=== PATIENT | male | born 1960 | race Caucasian/White ===

== ENCOUNTER 2022-09-21 19:44 | Inpatient (IN) | payer OTHER, SELFPAY ==
--- NOTE | ~2022-09-21 | CT_ITS ---
EXAMINATION: CT ABDOMEN AND PELVIS WITHOUT CONTRAST CLINICAL INFORMATION: Right-sided flank pain COMPARISON: None TECHNIQUE: Multidetector volumetric imaging was performed from the superior aspect of the liver through the pubic symphysis. Sagittal and coronal reformatted images were obtained on the technologist's workstation. This CT examination was performed using dose optimization techniques as appropriate, variously including the following: *Automated exposure control *Adjustment of mA and/or kV according to patient size (this includes techniques or standardized protocols for targeted exams where dose is matched to indication/reason for exam; i.e. extremities or head) *Use of iterative reconstruction technique DLP: 682 mGy-cm FINDINGS: LUNG BASES: The visualized lung bases are unremarkable. LIVER, GALLBLADDER, AND BILIARY TREE: The liver is normal in size, shape, and attenuation. No focal hepatic lesion or biliary ductal dilatation is present. The gallbladder is unremarkable with no evidence of radiopaque gallstones, gallbladder wall thickening, or obvious pericholecystic inflammatory changes. PANCREAS: Unremarkable. SPLEEN: Unremarkable. ADRENAL GLANDS: Unremarkable. KIDNEYS AND URETERS: The kidneys are normal in size, shape, and attenuation. No hydronephrosis, hydroureter, or calculi seen. No perinephric stranding. BLADDER: Unremarkable. GASTROINTESTINAL TRACT: The appendix is enlarged 1.5 cm in length and multiple appendicoliths are present within the appendiceal lumen which does not contain air. Some subtle inflammatory changes are seen around the appendix. No extraluminal air or periappendiceal fluid collections are seen. The small and large bowel are unremarkable. ABDOMINAL WALL: No significant hernia is appreciated. LYMPH NODES: No retroperitoneal lymphadenopathy VASCULAR: Unremarkable. PELVIC VISCERA: The prostate and seminal vesicles are unremarkable. OSSEOUS STRUCTURES: Degenerative changes are present throughout the spine most marked at T9-T10. There is a large Schmorl's node in the superior endplate of L4. CT/CT abdomen pelvis wo IV con IMPRESSION: Acute uncomplicated appendicitis. Fleischner guidelines were followed. This critical result was discussed with Dr. Amanda Mckinney at 8:50 PM on the evening of the exam and it was ascertained that the content and urgency of the report was understood at the time of direct communication.
[2022-09-21 19:48] VITALS: BP 139/86; PULSE 105; O2SAT 100
[2022-09-21 19:49] VITALS: BMI 30.4
[2022-09-21 19:51] VITALS: BP 155/92; PULSE 96; RESP 20; TEMP 37; O2SAT 99
[2022-09-21 20:15] LABS: Hematocrit 35.5 % (42.0-52.0); Hemoglobin 12.6 g/dl (14.0-18.0); Mean Corpuscular HGB Conc 35.5 g/dl (31.0-36.0); Mean Corpuscular Hemoglobin 31.2 pg (27.0-33.0); Mean Corpuscular Volume 87.9 fL (80.0-98.0); Mean Platelet Volume 8.5 fL (9.4-12.4); Platelet Count 298 X10*3/uL (160-400); Red Blood Count 4.04 X10*6/uL (4.60-5.80); Red Cell Distribution Width 12.7 % (11.0-16.0); WBC ABN SCTR FOR CBC 1
[2022-09-21 20:24] LABS: Lymphocytes Percent Manual 5 % (20-40); Monocytes Percent Manual 6 % (2-11); Neutrophils Percent Manual 89 % (45-73)
[2022-09-21 20:25] LABS: Platelet Estimate NORMAL (NORMAL); Platelet Morphology Comment NORMAL; RBC Morphology NORMAL
[2022-09-21 20:26] LABS: Lymphocytes Absolute Manual 0.7 X10*3/uL (1.2-4.9); Monocytes Absolute Manual 0.8 X10*3/uL (0.1-1.2)
[2022-09-21 20:33] LABS: Alanine Aminotransferase 11 U/L (0-40); Albumin Level 4.7 g/dL (3.5-5.0); Alkaline Phosphatase 110 U/L (39-117); Anion Gap 19 (12-20); Aspartate Amino Transferase 26 U/L (5-37); Bilirubin Direct 0.5 mg/dL (0.0-0.5); Bilirubin Total 1.7 mg/dL (0.0-1.0); Blood Urea Nitrogen 11 mg/dL (9-16); Calcium 10.3 mg/dL (8.4-10.2); Carbon Dioxide 20 mmol/L (22-29); Chloride 95 mmol/L (96-108); Creatinine Clr Calc Pharmacy 76.5; Estimated Glomerular Filt Rate > 60; Glucose Random 117 mg/dL (60-115); Lipase 14 U/L (8-78); Potassium 4.7 mmol/L (3.3-5.1); Sodium 129 mmol/L (135-145); Total Protein 8.5 g/dL (6.5-8.0)
--- NOTE | 2022-09-21 21:07 | ED_ITS ---
HPI - Abdominal Pain General Chief Complaint: Back Pain/Injury Stated Complaint: flank pain with vomiting Time Seen by Provider: 09/21/22 20:52 Source: patient Mode of arrival: EMS Limitations: no limitations History of Present Illness HPI narrative: Patient comes to the emergency room complaining of right lower quadrant discomfort that started about a week ago. However, over last 3 days, the patient has been constant, nonradiating, sharp and gradually getting worse over right lower quadrant. Patient denies any injury or trauma. No fever, complaining of nausea and vomiting, no diarrhea. Denies any URI symptoms. Related Data Home Medications Medication Instructions Recorded Confirmed aspirin 325 mg tablet,delayed 325 mg PO DAILY 09/21/22 09/21/22 release carvedilol 3.125 mg tablet 1 tab PO BID 09/21/22 09/21/22 folic acid 800 mcg tablet 0.8 mg PO DAILY 09/21/22 09/21/22 furosemide 20 mg tablet 1 tab PO BIDWM 09/21/22 09/21/22 [id number]-ydlzgkdx-ckledw tablet 1 tab PO DAILY 09/21/22 09/21/22 quetiapine 100 mg tablet 1 tab PO BEDTIME 09/21/22 09/21/22 spironolactone 25 mg tablet 1 tab PO DAILY 09/21/22 09/21/22 thiamine HCl (vitamin B1) 100 mg 100 mg PO DAILY 09/21/22 09/21/22 tablet Allergies Allergy/AdvReac Type Severity Reaction Status Date / Time No Known Allergies Allergy Unverified 05/16/20 14:49 [No Known Allergies*] Review of Systems Review of Systems Constitutional : No Weight loss, No Fever, No Chills, No Night Sweats, No Fatigue, No Malaise ENT/Mouth : No Hearing loss, No Ear Pain, No Nasal Congestion, No Sinus Pain, No Hoarseness, No sore throat, No Rhinorrhea, No Swallowing Difficulty Eyes: No Eye Pain, No Swelling, No Redness, No Foreign Body, No Discharge, No Vision Changes Cardiovascular : No Chest Pain, No SOB, No Dyspnea on Exertion, No Orthopnea, No Edema, No Palpitations Respiratory : No Cough, No Sputum, No Wheezing, No Smoke Exposure, No Dyspnea Gastrointestinal : Complaining of nausea and vomiting, no diarrhea constipation, complaining of constant sharp nonradiating right lower quadrant pain, significant pain, worse with movement or laughing Genitourinary : no irregular bleeding, No Dysuria, No Urinary Frequency, No Hematuria, No Urinary Incontinence, No Urgency, No Flank Pain, No Urinary Flow Changes, No Hesitancy Musculoskeletal : No joint pain, No Myalgias, No Joint Swelling Skin : No Skin Lesions, No rash Neuro : No Weakness, No Numbness, No Paresthesias, No Loss of Consciousness, No Dizziness, No Headache Psych : No Anxiety/Panic, No Depression, No SI/HI/AH/VH, No Social Issues, Heme/Lymph: No Bruising, No Bleeding,No Lymphadenopathy Endocrine : No Polyuria, No Polydipsia, No Temperature Intolerance [facility] Social History Social History Patient Tobacco Use Status: Never used Tobacco Smoked in Last 30 Days: No Use of substances other than those prescribed or required for medical reasons: No Advance Directives: No Advance Directives Information Provided: No Nutrition Risks: Acute nausea or vomiting x1 week and Difficulty chewing Physical Exam ED Vital Signs: Vital Signs - 24 hr 09/21/22 19:49 09/21/22 19:51 Temperature 98.6 F Pulse Rate 96 Respiratory Rate 20 Blood Pressure 155/92 H Pulse Oximetry 99 Oxygen Delivery Method Room Air Room Air BMI result Body Mass Index 30.4 Const Other: Appearance: Alert. Oriented X3. No acute distress. Eyes: Pupils equal, round and reactive to light. ENT: Pharynx normal. Neck: Normal inspection. Neck supple. No lymph nodes noted. No crepitus CVS: Normal heart rate and rhythm. Pulses normal. Normal S1 and S2 Respiratory: No respiratory distress. Breath sounds normal. No Wheezing. No rales Abdomen: Soft, tender to palpation over the right lower quadrant, no guarding, positive rebound, chronic reducible umbilical hernia present Skin: Skin warm and dry. Normal skin color. Normal skin turgor. Extremities: No lower extremity edema. No Lacerations. No Rash Neuro: Oriented X 3. No motor deficit. No sensory deficit. Moving all ext remities. No slurred speech. CN 2 through 12 grossly intact Psych: calm, cooperative, normal affect Course Course Course Narrative: -patient's white blood cell count 14 --CT scan shows appendicitis -I discussed the patient with Dr. Lewis, pt being admitted for possible appendectomy -patient given IV fluids, Zofran and Zosyn -NPO after midnight Medical Decision Making Medical Decision Making [facility] Narrative: -patient has appendicitis, patient will likely need surgery tomorrow Differential Diagnosis Differential Diagnoses: The differential diagnosis associated with the presentation includes (Appendicitis, ureterolithiasis) Admission/Observation Consideration of admission/observation: Escalation of care including admission/observation considered (Patient may need surgery tomorrow) Consult Healthcare Provider Management of the patient was discussed with: Scenario Writer (Dr. york from surgery ) Lab Data MDM Lab Attestation statement: I reviewed the patient's lab results. 09/21/22 19:54 09/21/22 19:54 Labs: Lab Results 09/21/22 09/21/22 Range/Units 19:54 19:54 WBC 14.0 H (4.8-10.8) X10*3/uL RBC 4.04 L (4.60-5.80) X10*6/uL Hgb 12.6 L (14.0-18.0) g/dl Hct 35.5 L (42.0-52.0) % MCV 87.9 (80.0-98.0) fL MCH 31.2 (27.0-33.0) pg MCHC 35.5 (31.0-36.0) g/dl RDW 12.7 (11.0-16.0) % Plt Count 298 (160-400) X10*3/uL MPV 8.5 L (9.4-12.4) fL Immature Gran % (Auto) Cancelled Neut % (Auto) Cancelled Lymph % (Auto) Cancelled Bond % (Auto) Cancelled Eos % (Auto) Cancelled Baso % (Auto) Cancelled Lymph # (Auto) Cancelled Bond # (Auto) Cancelled Eos # (Auto) Cancelled Baso # (Auto) Cancelled Abs Immat Gran (auto) Cancelled Absolute Neuts (auto) Cancelled Absolute Nucleated RBC 0.000 (0.0-0.012) X10*3/uL Nucleated RBC % (auto) 0.0 (0.0-0.2) /100WBC Neutrophils % (Manual) 89 H (45-73) % Lymphocytes % (Manual) 5 L (20-40) % Monocytes % (Manual) 6 (2-11) % Abs Neuts (Manual) Not Reportable Lymphocytes # (Manual) 0.7 L (1.2-4.9) X10*3/uL Monocytes # (Manual) 0.8 (0.1-1.2) X10*3/uL Platelet Estimate NORMAL (NORMAL) Plt Morphology Comment NORMAL RBC Morphology NORMAL Sodium 129 L (135-145) mmol/L Potassium 4.7 (3.3-5.1) mmol/L Chloride 95 L (96-108) mmol/L Carbon Dioxide 20 L (22-29) mmol/L Anion Gap 19 (12-20) BUN 11 (9-16) mg/dL Creatinine 1.08 (0.5-1.4) mg/dL Estim Creat Clear Calc 76.5 Estimated GFR > 60 Random Glucose 117 H (60-115) mg/dL Calcium 10.3 H (8.4-10.2) mg/dL Total Bilirubin 1.7 H (0.0-1.0) mg/dL Direct Bilirubin 0.5 (0.0-0.5) mg/dL AST 26 (5-37) U/L ALT 11 (0-40) U/L Alkaline Phosphatase 110 (39-117) U/L Total Protein 8.5 H (6.5-8.0) g/dL Albumin 4.7 (3.5-5.0) g/dL Lipase 14 (8-78) U/L Independent Interpretation I performed an independent interpretation of an: CT Scan (My CT scan interpretation: Appendicolith present, likely appendicitis) Radiology Impression Discussion of test interpretation with radiology: I have reviewed the radiologist's reading. Radiologist Impression: FINDINGS: LUNG BASES: The visualized lung bases are unremarkable.? LIVER, GALLBLADDER, AND BILIARY TREE: The liver is normal in size, shape, and attenuation. No focal hepatic lesion or biliary ductal dilatation is present. The gallbladder is unremarkable with no evidence of radiopaque gallstones, gallbladder wall thickening, or obvious pericholecystic inflammatory changes.? PANCREAS: Unremarkable.? SPLEEN: Unremarkable.? ADRENAL GLANDS: Unremarkable.? KIDNEYS AND URETERS: The kidneys are normal in size, shape, and attenuation. No hydronephrosis, hydroureter, or calculi seen. No perinephric stranding. ? BLADDER: Unremarkable.? GASTROINTESTINAL TRACT: The appendix is enlarged 1.5 cm in length and multiple appendicoliths are present within the appendiceal lumen which does not contain air. Some subtle inflammatory changes are seen around the appendix. No extraluminal air or periappendiceal fluid collections are seen. The small and large bowel are unremarkable. ? ABDOMINAL WALL: No significant hernia is appreciated.? LYMPH NODES: No retroperitoneal lymphadenopathy VASCULAR: Unremarkable. PELVIC VISCERA: The prostate and seminal vesicles are unremarkable.? OSSEOUS STRUCTURES: Degenerative changes are present throughout the spine most marked at T9-T10. There is a large Schmorl's node in the superior endplate of L4.? CT/CT abdomen pelvis wo IV con IMPRESSION: Acute uncomplicated appendicitis. ? Fleischner guidelines were followed. Medications Administered Discontinued Medications Generic Name Dose Route Start Last Admin Trade Name Freq PRN Reason Stop Dose Admin Piperacillin Sod/Tazobactam 50 mls @ 100 mls/hr 09/21/22 20:59 09/21/22 22:24 Sod 3.375 gm/ Sodium Chloride IV 09/21/22 21:28 Infused ONCE ONE Infusion Sodium Chloride 1,000 mls @ 999 mls/hr 09/21/22 20:59 09/21/22 21:51 Ns IVCONT 09/21/22 21:59 999 mls/hr .Q1H1M ONE Administration Morphine Sulfate 4 mg 09/21/22 20:59 09/21/22 21:50 Morphine Sulfate 4 Mg/Ml Cartridge IVPUSH 09/21/22 21:00 4 mg ONCE ONE Administration Protocol Ondansetron HCl 4 mg 09/21/22 20:59 09/21/22 21:47 Ondansetron Hcl 4 Mg/2 Ml Vial IVPUSH 09/21/22 21:00 4 mg ONCE ONE Administration Critical Care Time Critical Care Time Critical Care Time: Yes Total Critical Care Time: 45 Attestation: I have personally provided critical care time. Time includes review of lab data, radiology results, discussion with consultants, and monitoring for potential decompensation. Intervention performed as documented. Discharge Plan Discharge Clinical Impression: Appendicitis Patient Disposition: Admitted As Inpatient
--- NOTE | 2022-09-21 21:28 | PHA.MEDREC ---
Pharmacy Consult ? Medication Reconciliation Pharmacy has completed the medication reconciliation.
[2022-09-21] MEDS: ondansetron HCL 4 MG/2 ML VIAL IVPUSH (21:47)
[2022-09-21 21:50] VITALS: RESP 16
[2022-09-21] MEDS: Morphine Sulfate 4 MG/ML CARTRIDGE IVPUSH (21:50)
[2022-09-21] MEDS: 0.9 % Sodium Chloride 1,000 ML 999 ML IVCONT (21:51)
[2022-09-21] MEDS: Piperacillin Sodium/Tazobactam 3.375 GM in 0.9 % Sodium Chloride 50 ML IV (21:52)
--- NOTE | 2022-09-21 21:54 | PC.NURSE ---
assumed care of pt pt watching tv, slightly restless' pt states intense amount of pain no sob, able to speak in full sentences meds on hand, will medicate after pt ambulates to restroom per his request will CTM
[2022-09-21 21:59] VITALS: BP 138/85; PULSE 107; RESP 17; TEMP 36.8; O2SAT 100
--- NOTE | 2022-09-21 22:02 | PC.NURSE ---
this nurse assessed vs administered meds per OCT pt ambulated to restroom for urine collection urine obtained, collected, and sent to lab via tube system this nurse changed over pt to hospital attire
--- NOTE | 2022-09-21 22:05 | PC.NURSE ---
pt aox4 observed pt ambulate safely/independently to restroom prior to med administration
[2022-09-21 23:26] VITALS: BP 152/84; PULSE 94; RESP 16; TEMP 36.9; O2SAT 100
[2022-09-21 23:39] LABS: Appearance Urine Clear; Color Urine Yellow; Glucose Urine UA Negative (Negative); Leukocyte Esterase Urine Negative (Negative); Nitrite Urine Negative (Negative); Specific Gravity - Urine 1.015 (1.005-1.025); Urine Blood Negative (Negative); Urine Ketones 15 mg/dL (Negative); Urine Protein Negative (Neg-Trace)
[2022-09-21 23:56] LABS: COVID-19 Test Negative (Negative); IDNOW Serial# 16C4AD1C
[2022-09-21] MEDS: 0.9 % Sodium Chloride Flush 3 ML SYRINGE IVFLUSH (23:59)
[2022-09-21] MEDS: Dextrose 5 % and Lactated Ring 1,000 ML 125 ML IVCONT (23:59)
[2022-09-22] VITALS (13 sets, daily range): BP systolic 126–165; BP diastolic 63–91; PULSE 65–104; RESP 14–20; TEMP 36.1–37.7; O2SAT 98–100
[2022-09-22] MEDS: HYDROmorphone HCl 0.5 MG/0.5 ML SYRINGE IVPUSH ×4 (01:57→16:59)
[2022-09-22] MEDS: ondansetron HCL 4 MG/2 ML VIAL IVPUSH ×2 (02:01→16:58)
[2022-09-22] MEDS: Piperacillin Sodium/Tazobactam 3.375 GM in 0.9 % Sodium Chloride 50 ML IV ×4 (05:54→23:22)
[2022-09-22 05:59] LABS: MANUAL DIFF FLAG NO
[2022-09-22 06:06] LABS: Basophils Percent Auto 0.3 % (0-2); Eosinophils Percent Auto 0.3 % (0-4); Hematocrit 30.6 % (42.0-52.0); Hemoglobin 10.5 g/dl (14.0-18.0); Imm Gran Abs Auto 0.04 X10*3/uL (0.00-0.03); Imm Gran Pct Auto 0.4 % (0.0-0.4); Lymphocytes Absolute Auto 1.3 X10*3/uL (1.2-4.9); Lymphocytes Percent Auto 14.8 % (20-40); Mean Corpuscular HGB Conc 34.3 g/dl (31.0-36.0); Mean Corpuscular Hemoglobin 31.3 pg (27.0-33.0); Mean Corpuscular Volume 91.1 fL (80.0-98.0); Mean Platelet Volume 9.2 fL (9.4-12.4); Monocytes Absolute Auto 1.1 X10*3/uL (0.1-1.2); Monocytes Percent Auto 11.8 % (2-11); Neutrophils Absolute Auto 6.5 x10*3/uL (2.0-8.3); Neutrophils Percent Auto 72.4 % (45-73); Platelet Count 271 X10*3/uL (160-400); Red Blood Count 3.36 X10*6/uL (4.60-5.80)
[2022-09-22 06:27] LABS: Anion Gap 12 (12-20); Blood Urea Nitrogen 12 mg/dL (9-16); Carbon Dioxide 25 mmol/L (22-29); Chloride 99 mmol/L (96-108); Estimated Glomerular Filt Rate > 60; Glucose Random 125 mg/dL (60-115); Potassium 4.2 mmol/L (3.3-5.1); Sodium 132 mmol/L (135-145)
--- NOTE | 2022-09-22 07:30 | P.HPGS_ITS ---
History of Present Illness History of Present Illness Date of Service: 09/22/22 Chief complaint: Acute appendicitis Narrative: Justino Karimi is a 62 year old male presenting with complaints of right lower quadrant abdominal pain. He initially began symptoms proximally 2 weeks ago with some mild right lower quadrant abdominal pain. This persisted intermittently until yesterday when the pain became more severe. The pain was associated with nausea and vomiting, fever and chills. He subsequently presented to the emergency department was noted to be tender in the right lower quadrant. [place] [id number] abdomen and pelvis revealed a thickened appendix with inflammatory changes and multiple fecaliths suggestive of acute appendicitis. He is admitted to the surgical service for further management of this acute appendicitis. Review of Systems Review of Systems: Yes all other systems are reviewed and are negative Constitutional: Constitutional: Reports chills, Reports fever(s), Denies headache(s), Reports poor appetite, Reports snoring and Denies weakness ENT: Denies headache(s) Cardiovascular: Cardiovascular: Denies chest pain, Denies irregular heart rhythm, Denies palpitations and Denies dyspnea Respiratory: Respiratory: Denies cough, Denies excessive phlegm production, Denies dyspnea and Reports snoring Gastrointestinal: Gastrointestinal: Reports abdominal pain, Denies bloating, Denies change in bowel habits, Denies constipation, Denies heartburn, Denies diarrhea, Reports nausea and Reports vomiting Genitourinary: Genitourinary: Denies difficulty urinating and Denies urinary frequency Musculoskeletal: Musculoskeletal: Denies back pain, Denies muscle weakness and Denies numbness Integumentary/Breasts: Skin/Breast: Denies changing lesions and Denies unusual bruising Neurologic: Denies headache(s), Denies numbness, Denies paresthesias and Denies weakness Psychiatric: Psychiatric: Denies anxiety and Denies depression Endocrine: Endocrine: Denies palpitations Hematologic/Lymphatic: Hematologic/Lymphatic: Denies lymphadenopathy PMFSH Past Medical History Medical History (Updated 09/22/22 @ 07:34 by James Atkins MD) Shoulder fracture, left Sleep apnea Valvular heart disease Surgical History Surgical History (Updated 09/22/22 @ 07:34 by James Atkins MD) H/O oral surgery Social History Social History Household Members: None Housing: House Do you presently have visiting nurse or other home services: No Patient Tobacco Use Status: Never used Tobacco Smoked in Last 30 Days: No Use of substances other than those prescribed or required for medical reasons: No Currently Displaying Signs/Symptoms of Drug Intoxication Withdrawal: No Have you been hit, kicked, punched, or otherwise hurt by someone within the past year? If so, by whom?: No Do you feel safe in your current relationship?: No Current Relationship Is there a partner from a previous relationship who is making you feel unsafe now?: No Are you made to feel afraid or neglected: No Advance Directives: No Advance Directives Information Provided: No Advance Directives on File: No Do you have thoughts of harming others: None Do you have a plan to hurt others: No Plan Recently lost weight without trying: No How much weight loss: Not applicable Eating poorly because of decreased appetite: No Nutrition screen score: 0 Nutrition Risks: No Nutritional Risk Poor oral hygiene: No Meds Allergies Allergy/AdvReac Type Severity Reaction Status Date / Time No Known Allergies Allergy Unverified 05/16/20 14:49 [No Known Allergies*] Active Medications: Current Medications Acetaminophen (Acetaminophen 325 Mg Tablet) 650 mg PO QID PRN PRN Reason: headache, temp > 101 Hydromorphone HCl (Hydromorphone Hcl 0.5 Mg/0.5 Ml Syringe) 0.5 mg IVPUSH Q3H PRN; Protocol PRN Reason: Pain, Severe (Pain Scale 7-10) Last Admin: 09/22/22 05:54 Dose: 0.5 mg Dextrose/Lactated Ringer's (D5lr) 1,000 mls @ 125 mls/hr IVCONT .Q8H [facility] Last Admin: 09/22/22 04:19 Dose: Not Given Piperacillin Sod/Tazobactam (Sod 3.375 gm/ Sodium Chloride) 50 mls @ 100 mls/hr IV Q6H [facility] Last Infusion: 09/22/22 06:32 Dose: Infused Ondansetron HCl (Ondansetron Hcl 4 Mg/2 Ml Vial) 4 mg IVPUSH QID PRN PRN Reason: Nausea Last Admin: 09/22/22 02:01 Dose: 4 mg Oxycodone HCl (Oxycodone Hcl Immed Release 5 Mg Tablet) 5 mg PO Q6H PRN PRN Reason: Pain, Moderate (Pain Scale 4-6 Pharmacy Consult (Consult Rx Perform Med Rec) 1 each MISCELLANE ONCE PRN PRN Reason: Consult order Pharmacy Consult (Consult Rx Perform Med Rec) 1 each MISCELLANE ONCE PRN PRN Reason: Consult order Sodium Chloride (0.9 % Sodium Chloride Flush 3 Ml Syringe) 3 ml IVFLUSH QSHIFT [facility] Last Admin: 09/21/22 23:59 Dose: 3 ml Zolpidem Tartrate (Zolpidem Tartrate 5 Mg Tablet) 5 mg PO BEDTIME PRN PRN Reason: Insomnia Home Medications Medication Instructions Recorded Confirmed Last Taken Type aspirin 325 mg tablet,delayed 325 mg PO DAILY 09/21/22 09/21/22 09/21/22 History release carvedilol 3.125 mg tablet 1 tab PO BID 09/21/22 09/21/22 09/21/22 History folic acid 800 mcg tablet 0.8 mg PO DAILY 09/21/22 09/21/22 09/21/22 History furosemide 20 mg tablet 1 tab PO BIDWM 09/21/22 09/21/22 09/21/22 History pmhbmiybmpnv-tpxznnrw-vidwsm tablet 1 tab PO DAILY 09/21/22 09/21/22 09/21/22 History quetiapine 100 mg tablet 1 tab PO BEDTIME 09/21/22 09/21/22 09/20/22 History spironolactone 25 mg tablet 1 tab PO DAILY 09/21/22 09/21/22 09/21/22 History thiamine HCl (vitamin B1) 100 mg 100 mg PO DAILY 09/21/22 09/21/22 09/21/22 History tablet Physical Exam Vital Signs: Vital Signs: Last Vital Signs Temp 98.7 F 09/22/22 04:12 Pulse 76 09/22/22 04:12 Resp 20 09/22/22 05:54 BP 131/71 09/22/22 04:12 Pulse Ox 100 09/22/22 04:12 O2 Del Method 09/22/22 04:12 O2 Flow Rate 2 09/22/22 04:12 BMI result Body Mass Index 30.4 Const: General: cooperative and no acute distress Nutritional Appearance: well nourished and overweight Orientation/consciousness: patient oriented x3 Limitations: no limitations HEENT: Head: Yes normocephalic and Yes atraumatic Ears: hearing grossly normal bilaterally Resp: Effort & Inspection: normal respiratory effort, no audible wheezes, no cough and no respiratory distress Cardio: Jugular venous distension: no JVD GI: Inspection: Yes normal to inspection Palpation (GI): Soft to palpation, Tenderness to palpation present (GI) in the RLQ and at McBurney's point and Hernia present umbilical (2 cm, reducible) Percussion: Yes normal to percussion Auscultation: normal bowel sounds Rectal Exam - Male: Yes deferred Abdomen image: 1. Umbilical hernia Skin: Other: Warm, dry, no rash Neuro: General: patient oriented x3 Extrem: General: Yes no clubbing, cyanosis or edema Results Results Labs: Short CBC 09/21/22 09/22/22 Range/Units 19:54 05:14 WBC 14.0 H 9.0 (4.8-10.8) X10*3/uL Hgb 12.6 L 10.5 L (14.0-18.0) g/dl Hct 35.5 L 30.6 L (42.0-52.0) % Plt Count 298 271 (160-400) X10*3/uL BMP 09/21/22 09/22/22 19:54 05:14 Sodium 129 L 132 L Potassium 4.7 4.2 Chloride 95 L 99 Carbon Dioxide 20 L 25 BUN 11 12 Creatinine 1.08 1.18 Calcium 10.3 H 9.0 D Liver Function 09/21/22 Range/Units 19:54 Total Bilirubin 1.7 H (0.0-1.0) mg/dL Direct Bilirubin 0.5 (0.0-0.5) mg/dL AST 26 (5-37) U/L ALT 11 (0-40) U/L Alkaline Phosphatase 110 (39-117) U/L Albumin 4.7 (3.5-5.0) g/dL Urine 09/21/22 Range/Units 23:32 Urine Color Yellow Urine Appearance Clear Urine pH 8.0 (5.0-9.0) Ur Specific [place] 1.015 (1.005-1.025) Urine Protein Negative (Neg-Trace) mg/dL Urine Glucose (UA) Negative (Negative) mg/dL Assessment and Plan (1) Appendicitis: Status: Acute Plan 62-year-old male patient presenting with complaints of abdominal pain in the right lower quadrant of 2 weeks' duration increased over the last 24 hours presenting with tenderness in the right lower quadrant, elevated WBC and CT findings suggestive of acute appendicitis. Multiple fecaliths are noted within the appendix, therefore he is not a good candidate for non operative management. I recommended a laparoscopic or possible open appendectomy. After discussion of the procedure, risks, and alternatives, he consents to the surgery. He has been added onto the operative schedule for today. Time Spent With Patient Time: Total time managing care of this patient today ____ minutes. Quality Stroke Does the patient have a stroke diagnosis?: No VTE Prior VTE?: No VTE Risk Level:: Surgical - moderate VTE Device Contraindication: N/A - Device Ordered VTE Drug Contraindication: Treatment Not Indicated Procedures Date of Service Date of Service: 09/22/22
[2022-09-22] MEDS: Dextrose 5 % and Lactated Ring 1,000 ML 125 ML IVCONT (07:37)
--- NOTE | 2022-09-22 08:14 | P.CDIC_ITS ---
CDI Concurrent Query Documentation Clarification: PHYSICIAN'S DOCUMENTATION REQUEST Date of Query: 09/22/2214 Patient Name: Justino Karimi Admit Date: 09/21/22 Dear Doctor, A review of the medical record indicates additional documentation may be needed. Please review below and update the documentation accordingly. Clinical Indicators: Is there a diagnosis that correlates with these lab findings: Risk Factors/Clinical Indicators/Treatments LABS 09/21 - Sodium 129 L IV fluids Based on the above, could you clarify in the Progress Notes the appropriate diagnosis, if significant, that supports the above abnormalities and additional evaluation, monitoring, and/or treatment rendered: * Hyponatremia or other etiology of lab findings, poa, resolved etc. * Labs indicate a diagnosis of (please specify) * Other (please specify) * Unable to determine Use of terms such as suspected, likely, concern for, or probable (associated with a specific diagnosis that is being evaluated, monitored, or treated as if it exists) are acceptable and can be coded in the inpatient setting, when documented at the time of discharge. Thank you, Frannie Sorto [facility], CDIS Extension: [phone] Please use your independent medical judgment in providing your response. THIS QUERY IS PART OF THE PERMANENT MEDICAL RECORD Provider Response: Other Other Diagnosis: hyponatremia due to vomiting
--- NOTE | 2022-09-22 12:08 | MHC.CM.PN ---
pt lives alone has own ride home had no previous servceis is covid vax x 5 does not expected to need servceos when dcd
--- NOTE | 2022-09-22 13:06 | ECG_ITS ---
Test Reason : 89 Blood Pressure : / mmHG Vent. Rate : 073 BPM Atrial Rate : 073 BPM P-R Int : 186 ms QRS Dur : 088 ms QT Int : 398 ms P-R-T Axes : 024 007 022 degrees QTc Int : 438 ms Sinus rhythm with occasional Premature ventricular complexes Low voltage QRS Cannot rule out Inferior infarct (cited on or before 03-MAR-2015) Cannot rule out Anterior infarct , age undetermined Abnormal ECG When compared with ECG of 03-MAR-2015 14:57, Premature ventricular complexes are now Present Minimal criteria for Anterior infarct are now Present Referred By: Art Henriquez Electronically Signed By:ROSELYN CATHERINE
--- NOTE | 2022-09-22 14:21 | MHC.SHP ---
Pre-Procedural Eval Section A Date of Service: 09/22/22 The patient is an INPATIENT: Yes Changes since office visit: Yes Patient answered all questions; No Cold of Flu in the past 2 weeks, No New Medical Problems and No Changes in Medication The History & Physical has been completed within 30 days and I have reviewed it.: Yes Section B Chief Complaint: Acute appendicitis Allergies: Allergies Allergy/AdvReac Type Severity Reaction Status Date / Time No Known Allergies Allergy Unverified 05/16/20 14:49 [No Known Allergies*] Plan Diagnosis/Plan: Unchanged I have reviewed the history and physical and performed a pertinent physical examination on my patient. No changes have occurred unless specified. Information regarding prior cardiac history has been requested from [facility], but no information is available at this time. Patient with acute appendicitis and will need appendectomy regardless of the findings as this is an emergency procedure. Discussed with anesthesia. Time Spent With Patient Time: Total time managing care of this patient today ____ minutes.
--- NOTE | 2022-09-22 15:11 | P.CONAN_ITS ---
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, 30,s now cirrhosis, chf Family History Family history of problems with anesthesia: No Surgical History Surgical History (Updated 09/22/22 @ 07:34 by James Atkins MD) H/O oral surgery History of Problems with Anesthesia: No Social History Social History Household Members: None Housing: House Do you presently have visiting nurse or other home services: No Patient Tobacco Use Status: Never used Tobacco Smoked in Last 30 Days: No Second Hand Smoke Exposure: No Use of substances other than those prescribed or required for medical reasons: No Currently Displaying Signs/Symptoms of Drug Intoxication Withdrawal: No Have you been hit, kicked, punched, or otherwise hurt by someone within the past year? If so, by whom?: No Do you feel safe in your current relationship?: No Current Relationship Is there a partner from a previous relationship who is making you feel unsafe now?: No Are you made to feel afraid or neglected: No Are you DNR?: No Advance Directives: No Advance Directives Information Provided: No Advance Directives on File: No Do you have thoughts of harming others: None Do you have a plan to hurt others: No Plan Recently lost weight without trying: No How much weight loss: Not applicable Eating poorly because of decreased appetite: No Nutrition screen score: 0 Nutrition Risks: No Nutritional Risk Poor oral hygiene: No service: No Meds Allergies Allergy/AdvReac Type Severity Reaction Status Date / Time No Known Allergies Allergy Unverified 05/16/20 14:49 [No Known Allergies*] Active Medications: Current Medications Acetaminophen (Acetaminophen 325 Mg Tablet) 650 mg PO QID PRN PRN Reason: headache, temp > 101 Hydromorphone HCl (Hydromorphone Hcl 0.5 Mg/0.5 Ml Syringe) 0.5 mg IVPUSH Q3H PRN; Protocol PRN Reason: Pain, Severe (Pain Scale 7-10) Last Admin: 09/22/22 11:21 Dose: 0.5 mg Dextrose/Lactated Ringer's (D5lr) 1,000 mls @ 125 mls/hr IVCONT .Q8H [facility] Last Infusion: 09/22/22 11:28 Dose: 0 mls/hr Piperacillin Sod/Tazobactam (Sod 3.375 gm/ Sodium Chloride) 50 mls @ 100 mls/hr IV Q6H [facility] Last Infusion: 09/22/22 12:00 Dose: Infused Ondansetron HCl (Ondansetron Hcl 4 Mg/2 Ml Vial) 4 mg IVPUSH QID PRN PRN Reason: Nausea Last Admin: 09/22/22 02:01 Dose: 4 mg Oxycodone HCl (Oxycodone Hcl Immed Release 5 Mg Tablet) 5 mg PO Q6H PRN PRN Reason: Pain, Moderate (Pain Scale 4-6 Pharmacy Consult (Consult Rx Perform Med Rec) 1 each MISCELLANE ONCE PRN PRN Reason: Consult order Pharmacy Consult (Consult Rx Perform Med Rec) 1 each MISCELLANE ONCE PRN PRN Reason: Consult order Sodium Chloride (0.9 % Sodium Chloride Flush 3 Ml Syringe) 3 ml IVFLUSH QSHIFT [facility] Last Admin: 09/22/22 07:34 Dose: Not Given Zolpidem Tartrate (Zolpidem Tartrate 5 Mg Tablet) 5 mg PO BEDTIME PRN PRN Reason: Insomnia Home Medications Medication Instructions Recorded Confirmed Last Taken Type aspirin 325 mg tablet,delayed 325 mg PO DAILY 09/21/22 09/21/22 09/21/22 History release carvedilol 3.125 mg tablet 1 tab PO BID 09/21/22 09/21/22 09/21/22 History folic acid 800 mcg tablet 0.8 mg PO DAILY 09/21/22 09/21/22 09/21/22 History furosemide 20 mg tablet 1 tab PO BIDWM 09/21/22 09/21/22 09/21/22 History xoxujofxmeyp-cigqhkry-zmuoov tablet 1 tab PO DAILY 09/21/22 09/21/22 09/21/22 History quetiapine 100 mg tablet 1 tab PO BEDTIME 09/21/22 09/21/22 09/20/22 History spironolactone 25 mg tablet 1 tab PO DAILY 09/21/22 09/21/22 09/21/22 History thiamine HCl (vitamin B1) 100 mg 100 mg PO DAILY 09/21/22 09/21/22 09/21/22 History tablet Exam Exam Date and Time: September 22, 2022 151 Height,Weight and Vital Signs: Height 5 ft 8 in Weight 90.718 kg Last Vital Signs Temp 97.0 F 09/22/22 12:00 Pulse 65 09/22/22 12:00 Resp 16 09/22/22 12:00 BP 137/81 09/22/22 12:00 Pulse Ox 99 09/22/22 12:00 O2 Del Method 09/22/22 12:00 O2 Flow Rate 2 09/22/22 12:00 Pertinent Lab Results Pertinent Lab Results: Laboratory Tests 09/21/22 09/21/22 09/21/22 19:54 19:54 23:27 WBC 14.0 H RBC 4.04 L Hgb 12.6 L Hct 35.5 L MCV 87.9 MCH 31.2 MCHC 35.5 RDW 12.7 Plt Count 298 MPV 8.5 L Immature Gran % (Auto) Cancelled Neut % (Auto) Cancelled Lymph % (Auto) Cancelled [place] % (Auto) Cancelled Eos % (Auto) Cancelled Baso % (Auto) Cancelled Lymph # (Auto) Cancelled [place] # (Auto) Cancelled Eos # (Auto) Cancelled Baso # (Auto) Cancelled Abs Immat Gran (auto) Cancelled Absolute Neuts (auto) Cancelled Absolute Nucleated RBC 0.000 Nucleated RBC % (auto) 0.0 Neutrophils % (Manual) 89 H Lymphocytes % (Manual) 5 L Monocytes % (Manual) 6 Abs Neuts (Manual) Not Reportable Lymphocytes # (Manual) 0.7 L Monocytes # (Manual) 0.8 Platelet Estimate NORMAL Plt Morphology Comment NORMAL RBC Morphology NORMAL Sodium 129 L Potassium 4.7 Chloride 95 L Carbon Dioxide 20 L Anion Gap 19 BUN 11 Creatinine 1.08 Estim Creat Clear Calc 76.5 Estimated GFR > 60 Random Glucose 117 H Calcium 10.3 H Total Bilirubin 1.7 H Direct Bilirubin 0.5 AST 26 ALT 11 Alkaline Phosphatase 110 Total Protein 8.5 H Albumin 4.7 Lipase 14 Urine Color Urine Appearance Urine pH Ur Specific [place] Urine Protein Urine Glucose (UA) Urine Ketones Urine Blood Urine Nitrite Ur Leukocyte Esterase COVID-19 (PRICE) Negative COVID-19 Clin Com See Note 09/21/22 09/22/22 09/22/22 23:32 05:14 05:14 WBC 9.0 RBC 3.36 L Hgb 10.5 L Hct 30.6 L MCV 91.1 MCH 31.3 MCHC 34.3 RDW 13.0 Plt Count 271 MPV 9.2 L Immature Gran % (Auto) 0.4 Neut % (Auto) 72.4 Lymph % (Auto) 14.8 L [place] % (Auto) 11.8 H Eos % (Auto) 0.3 Baso % (Auto) 0.3 Lymph # (Auto) 1.3 [place] # (Auto) 1.1 Eos # (Auto) 0.0 Baso # (Auto) 0.0 Abs Immat Gran (auto) 0.04 H Absolute Neuts (auto) 6.5 Absolute Nucleated RBC 0.000 Nucleated RBC % (auto) 0.0 Neutrophils % (Manual) Lymphocytes % (Manual) Monocytes % (Manual) Abs Neuts (Manual) Lymphocytes # (Manual) Monocytes # (Manual) Platelet Estimate Plt Morphology Comment RBC Morphology Sodium 132 L Potassium 4.2 Chloride 99 Carbon Dioxide 25 Anion Gap 12 BUN 12 Creatinine 1.18 Estim Creat Clear Calc 70.0 Estimated GFR > 60 Random Glucose 125 H Calcium 9.0 D Total Bilirubin Direct Bilirubin AST ALT Alkaline Phosphatase Total Protein Albumin Lipase Urine Color Yellow Urine Appearance Clear Urine pH 8.0 Ur Specific [place] 1.015 Urine Protein Negative Urine Glucose (UA) Negative Urine Ketones 15 Urine Blood Negative Urine Nitrite Negative Ur Leukocyte Esterase Negative COVID-19 (PRICE) COVID-19 Clin Com Airway TM Dist: >3cm Neck ROM: Limited Denture: Upper and Lower Heart: rrr Assessment and Plan Assessment Anesthesia Assessment: Anesthesia Plan Discussed and Chart Reviewed Final Anesthetic Review Family History of Problems with Anesthesia: No History of Problems with Anesthesia: No NPO: Yes ASA Class: III and Emergency Final Preanesthetic Review: No Changes in Pt Med Stat, Meds/Allgs Chart Reviewed, Consent Obtained/Reviewed and Anes Risks/Benef Reviewed Patient Risk: High Procedure Risk: Intermediate Anesthetic Plan Anesthetic Plan: GA and Agree w/ Assess. and Plan Disposition: Standard PACU
--- NOTE | 2022-09-22 15:41 | W.PM.OPN ---
Operative Note Operative Note Date of Service: 09/22/22 Narrative: Preoperative diagnosis: acute appendicitis, umbilical hernia Postoperative diagnosis: same Procedure: laparoscopic appendectomy, open repair of umbilical hernia Surgeon: James Atkins MD Mathematical Scientist: JEZ Staples Anesthesia: general endotracheal Indications for procedure: 62-year-old male patient presenting with complaints of abdominal pain of 2 weeks duration increasing over the last 2 days perforated nausea, vomiting, fever, and chills. Workup revealed elevated WBC and CT confirmed acute appendicitis. Operative findings: Acutely inflamed appendix with turbid fluid surrounding the appendix. No evidence of perforation. Specimen: appendix, hernia sac Estimated blood loss: 5 mL Complications: none Procedure details: patient was brought to the OR placed in a supine position. After administering general anesthesia, the patient's abdomen was prepped with ChloraPrep and draped in a sterile fashion. A surgical time-out was called the consent confirmed. Patient received preoperative antibiotics and Venodyne boots were in place. Local anesthesia consisting of 0.5% Sensorcaine was infiltrated over the umbilical hernia above the umbilicus. Incision was then made with a scalpel carried out through subcutaneous tissue up to the hernia sac. The hernia sac was then entered and a 12 mm trocar inserted. A silk tie was placed at the base of the hernia sac to maintain pneumoperitoneum. The abdomen was insufflated to a pressure of 15 mmHg. Patient was then placed in a Trendelenburg position. a 5 mm trocar was placed in the lower midline and 5 mm trocar placed in a left lower quadrant position. The patient was then rotated to the left. Appendix was identified in the right lower quadrant. Dense adhesions were noted from the phlegmon med developed around the appendix. This was freed up using a blunt dissector and the LigaSure. A small amount of turbid fluid was evacuated with the power suction. The lateral attachments of the appendix were then taken down using The LigaSure. the mesoappendix was then divided using LigaSure down to base of the appendix and cecum. An Endo-NICKOLAS with a purple 30 mm stapler was then obtained. This was used to staple and divide the appendix at the base of the cecum. The appendix was then placed in Endo-Catch bag and brought out through the umbilical incision. The abdomen was then irrigated and suctioned dry. No bleeding identified. The pneumoperitoneum was then evacuated all trocars removed. The hernia sac was then dissected down to the fascial edge. The hernia sac was then excised. The fascia was then reapproximated using [id number] interrupted 0 Polysorb sutures. No mesh was used due to the appendicitis. Wounds were then irrigated with saline and suctioned dry. The umbilical skin was then reapproximated using interrupted 3-0 Polysorb sutures. Skin was closed in all incisions using a subcuticular 4-0 Polysorb suture. Steri-Strips, 2 x 2 gauze and Tegaderm were then applied. The patient tolerated the procedure well. Sponge, instrument, and needle counts reported as correct. Patient was transferred to PACU in stable condition.
[2022-09-22] MEDS: 0.9 % Sodium Chloride Flush 3 ML SYRINGE IVFLUSH ×2 (17:02→20:32)
[2022-09-22] MEDS: Furosemide 20 MG TABLET PO (17:11)
[2022-09-22] MEDS: carvediloL 3.125 MG TABLET PO (20:31)
[2022-09-22] MEDS: Zolpidem Tartrate 5 MG TABLET PO (20:32)
[2022-09-22] MEDS: HYDROmorphone HCl 0.5 MG/0.5 ML SYRINGE 0.25 MG IVPUSH (20:32)
[2022-09-23] MEDS: Piperacillin Sodium/Tazobactam 3.375 GM in 0.9 % Sodium Chloride 50 ML IV ×3 (05:39→17:53)
[2022-09-23 06:00] VITALS: BP 136/75; PULSE 91; RESP 14; TEMP 36.8; O2SAT 99
--- NOTE | 2022-09-23 06:47 | HO.POSTANES ---
Post Anesthesia Evaluation Post Anesthesia Evaluation Vital Signs: Vital Signs Temp Pulse Resp BP Pulse Ox O2 Del Method O2 Flow Rate 09/23/22 06:00 98.2 F 91 14 136/75 99 Room Air 09/22/22 23:41 98.8 F 104 H 16 139/81 99 09/22/22 19:19 99.8 F 91 19 162/86 H 98 Nasal Cannula 2 Anesthesia: General Endotracheal-GETA Mental Status: Awake Pain Control: Satisfactory Nausea/Vomiting: None Hydration: Adequate Anesthesia-Related Issues: No Anes. Related Issues
[2022-09-23] MEDS: Aspirin Enteric Coated 325 MG TABLET.DR PO (08:17)
[2022-09-23] MEDS: Thiamine HCL 100 MG TABLET PO (08:18)
[2022-09-23] MEDS: Spironolactone 25 MG TABLET PO (08:18)
[2022-09-23] MEDS: Folic Acid 1 MG TABLET PO (08:18)
[2022-09-23] MEDS: carvediloL 3.125 MG TABLET PO ×2 (08:18→19:58)
[2022-09-23] MEDS: Furosemide 20 MG TABLET PO ×2 (08:18→17:52)
[2022-09-23] MEDS: 0.9 % Sodium Chloride Flush 3 ML SYRINGE IVFLUSH ×2 (08:18→17:52)
--- NOTE | 2022-09-23 09:00 | P.PNGS_ITS ---
Subjective Subjective Date of Service: 09/23/22 Interval history: Feels well this morning. Has mild incisional pain at umbilicus. Tolerating solid diet. OOB to bathroom without difficulty. Physical Exam Vital Signs: Vital Signs: Last Vital Signs Temp 98.2 F 09/23/22 06:00 Pulse 91 09/23/22 06:00 Resp 14 09/23/22 06:00 BP 136/75 09/23/22 06:00 Pulse Ox 99 09/23/22 06:00 O2 Del Method 09/23/22 06:00 O2 Flow Rate 2 09/22/22 19:19 BMI result Body Mass Index 30.4 Const: General: comfortable, no acute distress and alert Orientation/consciousness: patient oriented x3 Resp: Effort & Inspection: normal respiratory effort GI: Inspection: Yes distended and Yes incision (clean) Palpation (GI): Soft to palpation, Tenderness to palpation present (GI) (mild, umbilicus), no guarding and not rigid Percussion: Yes normal to percussion Skin: General skin exam: no rashes or lesions noted Neuro: General: patient oriented x3 and moves all extremities Objective Data Active Medications Acetaminophen (Acetaminophen 325 Mg Tablet) 650 mg PO QID PRN PRN Reason: headache, temp > 101 Aspirin (Aspirin Enteric Coated 325 Mg Tablet.) 325 mg PO DAILY [facility] Last Admin: 09/23/22 08:17 Dose: 325 mg Documented By: HEYDI Carvedilol (Carvedilol 3.125 Mg Tablet) 3.125 mg PO BID [facility]; Protocol Last Admin: 09/23/22 08:18 Dose: 3.125 mg Documented By: HEYDI Folic Acid (Folic Acid 1 Mg Tablet) 1 mg PO DAILY [facility] Last Admin: 09/23/22 08:18 Dose: 1 mg Documented By: HEYDI Furosemide (Furosemide 20 Mg Tablet) 20 mg PO BIDWM [facility]; Protocol Last Admin: 09/23/22 08:18 Dose: 20 mg Documented By: HEYDI Hydromorphone HCl (Hydromorphone Hcl 0.5 Mg/0.5 Ml Syringe) 0.5 mg IVPUSH Q3H PRN; Protocol PRN Reason: Pain, Severe (Pain Scale 7-10) Last Admin: 09/22/22 16:59 Dose: 0.5 mg Documented By: JETT Hydromorphone HCl (Hydromorphone Hcl 0.5 Mg/0.5 Ml Syringe) 0.25 mg IVPUSH Q5M PRN; Protocol PRN Reason: Pain, Severe (Pain Scale 7-10) Last Admin: 09/22/22 20:32 Dose: 0.25 mg Documented By: HERMILO Piperacillin Sod/Tazobactam (Sod 3.375 gm/ Sodium Chloride) 50 mls @ 100 mls/hr IV Q6H [facility] Last Infusion: 09/23/22 06:16 Dose: 0 mls/hr Documented By: HERMILO Ondansetron HCl (Ondansetron Hcl 4 Mg/2 Ml Vial) 4 mg IVPUSH QID PRN PRN Reason: Nausea Last Admin: 09/22/22 16:58 Dose: 4 mg Documented By: JETT Oxycodone HCl (Oxycodone Hcl Immed Release 5 Mg Tablet) 5 mg PO Q6H PRN PRN Reason: Pain, Moderate (Pain Scale 4-6 Pharmacy Consult (Consult Rx Perform Med Rec) 1 each MISCELLANE ONCE PRN PRN Reason: Consult order Pharmacy Consult (Consult Rx Perform Med Rec) 1 each MISCELLANE ONCE PRN PRN Reason: Consult order Quetiapine Fumarate (Quetiapine Fumarate 100 Mg Tablet) 100 mg PO BEDTIME [facility] Last Admin: 09/22/22 20:42 Dose: Not Given Documented By: HERMILO Non-Admin Reason: Patient Refused Sodium Chloride (0.9 % Sodium Chloride Flush 3 Ml Syringe) 3 ml IVFLUSH [facility] Last Admin: 09/23/22 08:18 Dose: 3 ml Documented By: HEYDI Spironolactone (Spironolactone 25 Mg Tablet) 25 mg PO DAILY [facility]; Protocol Last Admin: 09/23/22 08:18 Dose: 25 mg Documented By: HEYDI Thiamine HCl (Thiamine Hcl 100 Mg Tablet) 100 mg PO DAILY [facility] Last Admin: 09/23/22 08:18 Dose: 100 mg Documented By: HEYDI Zolpidem Tartrate (Zolpidem Tartrate 5 Mg Tablet) 5 mg PO BEDTIME PRN PRN Reason: Insomnia Last Admin: 09/22/22 20:32 Dose: 5 mg Documented By: HERMILO Hassan 09/22/22 05:14 09/22/22 05:14 Procedures Date of Service Date of Service: 09/23/22 Progress Note: A&P Assessment and plan (1) Appendicitis: Status: Acute (2) S/P laparoscopic appendectomy: Status: Acute Plan 62 year old female admitted with acute appendicitis now POD #1 s/p lap appy. Found to have acutely inflamed appendix with turbid fluid surrounding the append ix and associated phlegmon.? No evidence of perforation. Doing well post op. Tolerating solid diet with good pain control. Appropriate post op tenderness, dressings c/d/i. Will keep for another day for IV abx given phlegmon- cont IV zosyn. Plan for d/c to home tomorrow.? Time Spent With Patient Time: Total time managing care of this patient today ____ minutes. Quality Stroke Does the patient have a stroke diagnosis?: No VTE Prior VTE?: No VTE Risk Level:: Surgical - moderate VTE Device Contraindication: N/A - Device Ordered VTE Drug Contraindication: Treatment Not Indicated
[2022-09-23] MEDS: HYDROmorphone HCl 0.5 MG/0.5 ML SYRINGE IVPUSH ×3 (11:34→21:56)
--- NOTE | 2022-09-23 12:52 | MHC.CM.PN ---
per rounds pt not medically cleared for dc plan remains home no servies
[2022-09-23 14:00] VITALS: BP 125/76; PULSE 90; RESP 17; TEMP 36.7; O2SAT 99
[2022-09-23 15:37] VITALS: BP 135/63; PULSE 72; RESP 16; TEMP 36.5; O2SAT 95
[2022-09-23] MEDS: QUEtiapine Fumarate 100 MG TABLET PO (19:57)
[2022-09-23 21:51] VITALS: BP 129/68; PULSE 77; RESP 15; TEMP 36.6; O2SAT 96
[2022-09-23 23:32] VITALS: BP 120/60; PULSE 69; RESP 14; TEMP 36.8; O2SAT 96
[2022-09-24] MEDS: Piperacillin Sodium/Tazobactam 3.375 GM in 0.9 % Sodium Chloride 50 ML IV ×3 (00:10→11:10)
[2022-09-24] MEDS: 0.9 % Sodium Chloride Flush 3 ML SYRINGE IVFLUSH ×2 (00:14→09:13)
[2022-09-24] MEDS: HYDROmorphone HCl 0.5 MG/0.5 ML SYRINGE IVPUSH (04:55)
--- NOTE | 2022-09-24 07:48 | PM.PNGS ---
Subjective Subjective Date of Service: 09/24/22 <Michelle Garcia PA-C - Last Filed: 09/24/22 07:51> 09/24/22 <James Atkins MD - Last Filed: 09/24/22 08:09> Interval history: Feels ok this morning, wants to go home. Has only had morphine for pain. Tolerating solid diet without N/V. OOB without difficulty. <Michelle Garcia PA-C - Last Filed: 09/24/22 07:51> Physical Exam Vital Signs: Vital Signs: Last Vital Signs Temp 98.2 F 09/23/22 23:32 Pulse 69 09/23/22 23:32 Resp 14 09/23/22 23:32 BP 120/60 09/23/22 23:32 Pulse Ox 96 09/23/22 23:32 O2 Del Method 09/23/22 23:32 O2 Flow Rate 2 09/22/22 19:19 BMI result Body Mass Index 30.4 <Michelle Garcia PA-C - Last Filed: 09/24/22 07:51> Const: General: comfortable, no acute distress and alert <Michelle Garcia PA-C - Last Filed: 09/24/22 07:51> Orientation/consciousness: patient oriented x3 <MARGIE Mackenzie Last Filed: 09/24/22 07:51> Resp: Effort & Inspection: normal respiratory effort <Michelle Garcia PA-C - Last Filed: 09/24/22 07:51> GI: Other: protuberant abdomen <Michelle Garcia PA-C - Last Filed: 09/24/22 07:51> Inspection: Yes incision (clean) <MARGIE Mackenzie Last Filed: 09/24/22 07:51> Palpation (GI): Soft to palpation, Tenderness to palpation present (GI) (incisional), no guarding and not rigid <MARGIE Mackenzie Last Filed: 09/24/22 07:51> Percussion: Yes normal to percussion <MARGIE Mackenzie Last Filed: 09/24/22 07:51> Skin: General skin exam: no rashes or lesions noted <Michelle Garcia PA-C - Last Filed: 09/24/22 07:51> Neuro: General: patient oriented x3 and moves all extremities <Michelle Garcia PA-C - Last Filed: 09/24/22 07:51> Objective Data Active Medications Acetaminophen (Acetaminophen 325 Mg Tablet) 650 mg PO QID PRN PRN Reason: headache, temp > 101 Aspirin (Aspirin Enteric Coated 325 Mg Tablet.) 325 mg PO DAILY [facility] Last Admin: 09/23/22 08:17 Dose: 325 mg Documented By: HEYDI Carvedilol (Carvedilol 3.125 Mg Tablet) 3.125 mg PO BID [facility]; Protocol Last Admin: 09/23/22 19:58 Dose: 3.125 mg Documented By: JOSE FRANCISCO Folic Acid (Folic Acid 1 Mg Tablet) 1 mg PO DAILY [facility] Last Admin: 09/23/22 08:18 Dose: 1 mg Documented By: HEYDI Furosemide (Furosemide 20 Mg Tablet) 20 mg PO BIDWM [facility]; Protocol Last Admin: 09/23/22 17:52 Dose: 20 mg Documented By: HEYDI Hydromorphone HCl (Hydromorphone Hcl 0.5 Mg/0.5 Ml Syringe) 0.5 mg IVPUSH Q3H PRN; Protocol PRN Reason: Pain, Severe (Pain Scale 7-10) Last Admin: 09/24/22 04:55 Dose: 0.5 mg Documented By: JOSE FRANCISCO Piperacillin Sod/Tazobactam (Sod 3.375 gm/ Sodium Chloride) 50 mls @ 100 mls/hr IV Q6H [facility] Last Infusion: 09/24/22 05:46 Dose: 0 mls/hr Documented By: JOSE FRANCISCO Ondansetron HCl (Ondansetron Hcl 4 Mg/2 Ml Vial) 4 mg IVPUSH QID PRN PRN Reason: Nausea Last Admin: 09/22/22 16:58 Dose: 4 mg Documented By: JETT Pharmacy Consult (Consult Rx Perform Med Rec) 1 each MISCELLANE ONCE PRN PRN Reason: Consult order Pharmacy Consult (Consult Rx Perform Med Rec) 1 each MISCELLANE ONCE PRN PRN Reason: Consult order Quetiapine Fumarate (Quetiapine Fumarate 100 Mg Tablet) 100 mg PO BEDTIME [facility] Last Admin: 09/23/22 19:57 Dose: 100 mg Documented By: JOSE FRANCISCO Sodium Chloride (0.9 % Sodium Chloride Flush 3 Ml Syringe) 3 ml IVFLUSH QSHIFT [facility] Last Admin: 09/24/22 00:14 Dose: 3 ml Documented By: JOSE FRANCISCO Spironolactone (Spironolactone 25 Mg Tablet) 25 mg PO DAILY [facility]; Protocol Last Admin: 09/23/22 08:18 Dose: 25 mg Documented By: HEYDI Thiamine HCl (Thiamine Hcl 100 Mg Tablet) 100 mg PO DAILY [facility] Last Admin: 09/23/22 08:18 Dose: 100 mg Documented By: HEYDI Zolpidem Tartrate (Zolpidem Tartrate 5 Mg Tablet) 5 mg PO BEDTIME PRN PRN Reason: Insomnia Last Admin: 09/22/22 20:32 Dose: 5 mg Documented By: N-JOZEB <Michelle Garcia PA-C - Last Filed: 09/24/22 07:51> Labs CBC & Chem 7: 09/22/22 05:14 09/22/22 05:14 <Michelle Garcia PA-C - Last Filed: 09/24/22 07:51> Procedures Date of Service Date of Service: 09/24/22 <MARGIE Mackenzie Last Filed: 09/24/22 07:51> Progress Note: A&P Assessment and plan (1) S/P laparoscopic appendectomy: Status: Acute <MARGIE Mackenzie Last Filed: 09/24/22 07:51> (2) Appendicitis: Status: Acute <MARGIE Mackenzie Last Filed: 09/24/22 07:51> Assessment and Plan: 62 year old female admitted with acute appendicitis now POD #2 s/p lap appy. Found to have acutely inflamed appendix with turbid fluid surrounding the appendix and associated phlegmon. No evidence of perforation. Continues to do well- refusing oxycodone for pain as he states he gets nausea/vomiting. Will change to norco 5mg PO and give one dose. If tolerating, will dc on norco for pain. Patient comfortable with plan. Will dc to home later today. F/u in office in 1 week. educated no heavy lifting. <Michelle Garcia PA-C - Last Filed: 09/24/22 07:51> 62 year old female admitted with acute appendicitis now POD #2 s/p lap appy. Found to have acutely inflamed appendix with turbid fluid surrounding the appendix and associated phlegmon. No evidence of perforation. Continues to do well- refusing oxycodone for pain as he states he gets nausea/vomiting. Will change to norco 5mg PO and give one dose. If tolerating, will dc on norco for pain. Patient comfortable with plan. Will dc to home later today. F/u in office in 1 week. educated no heavy lifting. Agree with the above assessment and plan. Patient is much improved today. Will discharge to home. Follow up next week. <James Atkins MD - Last Filed: 09/24/22 08:09> Time Spent With Patient Time: Total time managing care of this patient today ____ minutes. <Michelle Garcia PA-C - Last Filed: 09/24/22 07:51> Quality Stroke Does the patient have a stroke diagnosis?: No <Michelle Garcia PA-C - Last Filed: 09/24/22 07:51> VTE Prior VTE?: No <Michelle Garcia PA-C - Last Filed: 09/24/22 07:51> VTE Risk Level:: Surgical - moderate <Michelle Garcia PA-C - Last Filed: 09/24/22 07:51> VTE Device Contraindication: N/A - Device Ordered <Michelle Garcia PA-C - Last Filed: 09/24/22 07:51> VTE Drug Contraindication: Treatment Not Indicated <Michelle Garcia PA-C - Last Filed: 09/24/22 07:51>
--- NOTE | 2022-09-24 08:20 | MHC.CM.PN ---
Patient has been medically cleared for dc to home today, self care. The last IMM was addressed on 09/22/2022.
[2022-09-24] MEDS: Aspirin Enteric Coated 325 MG TABLET.DR PO (09:11)
[2022-09-24] MEDS: Thiamine HCL 100 MG TABLET PO (09:12)
[2022-09-24] MEDS: carvediloL 3.125 MG TABLET PO (09:12)
[2022-09-24] MEDS: HYDROcodone Bit/Acetam 5/325 TABLET 1 TAB PO (09:12)
[2022-09-24] MEDS: Folic Acid 1 MG TABLET PO (09:12)
[2022-09-24] MEDS: Furosemide 20 MG TABLET PO (09:12)
[2022-09-24] MEDS: Spironolactone 25 MG TABLET PO (09:14)
--- NOTE | 2022-09-24 09:43 | P.DS_ITS ---
DS: Providers Provider Date of Service: 09/24/22 Date of admission: 09/21/22 21:18 Date of discharge: 09/24/22 Primary care physician: Julian Javier MD Attending physician on admission: James Atkins Attending physician on discharge: James Atkins DS: Diagnosis Discharge Diagnosis (1) S/P laparoscopic appendectomy: Status: Acute (2) Appendicitis: Status: Acute DS: Summary Hospital Course Hospital Course: HPI AT ADMISSION: Justino Karimi is a 62 year old male with history of cardiomyopathy presenting with complaints of right lower quadrant abdominal pain.? He initially began symptoms proximally 2 weeks ago with some mild right lower quadrant abdominal pain.? This persisted intermittently until yesterday when the pain became more severe.? The pain was associated with nausea and vomiting, fever and chills.? He subsequently presented to the emergency department was noted to be tender in the right lower quadrant.? [place] [id number] CT abdomen and pelvis revealed a thickened appendix with inflammatory changes and multiple fecaliths suggestive of acute appendicitis.? HOSPITAL COURSE: He is admitted to the surgical service for further management of this acute appendicitis. Given the presence of fecaliths, it was recommended to proceed with laparoscopic appendectomy, possible open with repair of umbi lical hernia. He agreed to proceed and was added onto the OR schedule for the following day. On 09/22/22, a laparoscopic appendectomy, open repair of umbilical hernia was performed by Dr. Atkins without complication. Acutely inflamed appendix with turbid fluid surrounding the appendix. No evidence of perforation. He had an uncomplicated recovery course. He did well post operatively well adeq uate pain control and was tolerating a solid diet without nausea or vomiting. His abdomen was benign with appropriate post op tenderness and clean incisions. He was ambulating without difficulty. He was kept inpatient until POD #2 for two full days of IV zosyn given the phlegmon. He felt ready for discharge to home and was discharged on 09/24/22 in stable condition. He is to follow up in the office in 1 week. Status at Discharge Functional status at discharge: independent ambulation Overall status at discharge: patient is progressing back to baseline Time Spent with Patient Time attestation: Total time managing care of this patient today ____ minutes. Discharge coordination time: Less than 30 minutes Quality: Safe Use of Opioids Does Pt have an Active Cancer Diagnosis on the Problem List?: No Quality: Stroke Does the patient have a stroke diagnosis?: No Physical Exam 2 Vital Signs: Vital Signs: Last Vital Signs Temp 98.2 F 09/23/22 23:32 Pulse 69 09/23/22 23:32 Resp 14 09/23/22 23:32 BP 120/60 09/23/22 23:32 Pulse Ox 96 09/23/22 23:32 O2 Del Method 09/23/22 23:32 O2 Flow Rate 2 09/22/22 19:19 BMI result Body Mass Index 30.4 Const: General: comfortable, no acute distress and alert Orientation/consciousness: patient oriented x3 Resp: Effort & Inspection: normal respiratory effort Cardio: Rate: regular rate GI: Other: round abdomen Inspection: No distended and Yes incision (clean) Palpation (GI): Soft to palpation, Tenderness to palpation present (GI) (mild incisional), no guarding and not rigid Percussion: Yes normal to percussion Skin: General skin exam: no rashes or lesions noted Neuro: General: patient oriented x3 Extrem: General: Yes no clubbing, cyanosis or edema DS: Data Data Completed and Pending Pending studies at discharge: 09/22/22 15:17 Surgical [PTH] Routine A. Aappendix, appendectomy: Acute appendicitis, extending to proximal margin. B. Hernia sac, herniorrhaphy: Fibromembranous with hemorrhage, focal acute and chronic inflammation, and mesothelial lining, consistent with hernia sac. Discharge Plan Discharge Anticipated Discharge Date/Time: 09/24/22 10:30 Patient Disposition: Home, Self-Care Discharge Diagnosis: acute appendicitis s/p laparoscopic appendectomy, umbilical hernia repair Referrals: Julian Javier MD [Primary Care Provider] - 1 Week James Atkins MD [Physician] - 1 Week Discharge Medications: New hydrocodone-acetaminophen 5-325 mg Tablet 1 tab PO Q4H PRN (Reason: Pain, Moderate (Pain Scale 4-6) Qty: 15 0RF Rx Instructions: Partial Fill upon patient request. Continued thiamine HCl (vitamin B1) 100 mg Tablet 100 mg PO DAILY quetiapine 100 mg tablet 1 tab PO BEDTIME spironolactone 25 mg tablet 1 tab PO DAILY carvedilol 3.125 mg tablet 1 tab PO BID aspirin 325 mg Tablet,Delayed Release (Dr/Ec) 325 mg PO DAILY furosemide 20 mg tablet 1 tab PO BIDWM folic acid 800 mcg Tablet 0.8 mg PO DAILY eqtpwpmxmuyk-szafpkyc-kzhdfm Tablet 1 tab PO DAILY Discharge Orders: Discharge Order (Routine); Ordered 09/24/22 Ordered By: Jamse Atkins Diet: Advance to usual diet Activity on Discharge: No heavy lifting Stand Alone Forms: Patient Portal Discharge page Activity Restrictions/Additional Instructions: If the incision area is tender, you may apply an ice pack for short intervals (No more than 20 minutes on, followed by at least 20 minutes off). Do not apply heat. Do not use creams, lotions, or topical antibiotics unless instructed to do so by your surgeon. These can cause infection or allergic reaction. Ok to shower. Remove clear dressings 3 days following your procedure. You have steri strips (small white cloth strips) covering your incision- these will fall off ~1 week. No heavy lifting (>10lbs) or strenuous activity! Follow up in office with Dr. Atkins in 1 week. ([phone]) Call Your Doctor If: -Your temperature exceeds 101.5? F -You experience excessive pain or swelling -You have an unexpected reaction to medication -You have excessive bleeding -You experience continued vomiting/nausea -Your incision begins to separate -Your incision shows signs of infection such as increased redness, swelling, excessive pain, drainage (light blood or clear fluid is normal) or heat Care Plan Goals: Return to baseline health and gradual return to activity following recovery period. Health Concerns: cardiomyopathy acute appendicitis Plan of Treatment: s/p laparoscopic appendectomy and repair of umbilical hernia F/u in office in 1 week Assessment: Doing well post op Discharge Date/Time: 09/24/22 11:55
== END 2022-09-24 11:55 | disposition home or self-care (01) | DRG 336 ==
LOC: HO.ED 21:27 → HO.EDOVER 21:42 → HO.IMC 09-22 03:39
PROVIDERS: Admitting Provider Surgery; Emergency Provider Emergency Medicine; PCP Internal Medicine; Visit Provider Surgery
PROC: 0DTJ4ZZ Resection of Appendix, Percutaneous Endoscopic Approach (ICD-10-PCS; CPT 44970; principal; 2022-09-22 12:50)
PROC: 0DNW4ZZ Release Peritoneum, Percutaneous Endoscopic Approach (ICD-10-PCS; CPT 44970; 2022-09-22 12:50)
DX: K35.33 Acute appendicitis with perforation, localized peritonitis, and gangrene, with abscess (principal); E87.1 Hypo-osmolality and hyponatremia; K66.0 Peritoneal adhesions (postprocedural) (postinfection); K42.9 Umbilical hernia without obstruction or gangrene; G47.30 Sleep apnea, unspecified; Z20.822 Contact with and (suspected) exposure to COVID-19; Z79.82 Long term (current) use of aspirin; Z79.899 Other long term (current) drug therapy
CPT/HCPCS: 44970; 36415; 74176; 80048; 80076; 81003; 83690; 85007; 85025; 85027; 87635; 88302; 88304; 93005; 99285; J1100; J1170; J2270; J2370; J2405; J2543; J2795; J3010

== ENCOUNTER → 2022-10-02 09:23 | Outpatient (BNVA) | payer OTHER, SELFPAY | PROVIDERS: PCP Internal Medicine; Visit Provider Surgery | DX: Z13.89 Encounter for screening for other disorder (principal) | CPT/HCPCS: 99212 ==

== ENCOUNTER → 2022-10-30 08:48 | Outpatient (BNVA) | payer OTHER, SELFPAY | PROVIDERS: PCP Internal Medicine; Visit Provider Surgery | DX: Z90.49 Acquired absence of other specified parts of digestive tract (principal) | CPT/HCPCS: 99212 ==

== ENCOUNTER 2024-10-31 10:05 | Outpatient (AMB) | payer MEDICARE, MEDICAID, SELFPAY ==
--- NOTE | 2024-10-31 10:10 | MHC.OFFVIS ---
Vital Signs 10/31/24 10:16 Height 5 ft 8 in Weight 203 lb BMI 30.9 BP 154/66 H Blood Pressure Location Lt brachial Position Sitting Pulse 77 Intake Visit Reasons: abnormal gallbladder imaging Intake Note: Patient is seen in office for evaluation of the gallbladder. Pt c/o: had MRI done and was told about the gallbladder, he denies any symptoms, denies n/v/d/c, or abdominal pain MRI abd:06/26/24 referral:10/13/24 Residential Treatment Staff Required: No Accompanied by: Self / Same As Patient Allergies No Known Allergies [No Known Allergies*] Allergy (Unverified 10/30/22 08:57) Medication List - Last Reconciled 10/31/24 by James Atkins MD aspirin 325 mg PO DAILY carvedilol 1 tab PO BID folic acid 0.8 mg PO DAILY furosemide 1 tab PO BIDWM hydrocodone-acetaminophen 5-325 mg 1 tab PO Q4H PRN upkrbhwfokiv-osjmktzh-xbggaj 1 tab PO DAILY quetiapine 1 tab PO BEDTIME spironolactone 1 tab PO DAILY thiamine HCl (vitamin B1) 100 mg PO DAILY HPI Comments Details: 64-year-old male patient presenting for evaluation of abnormal imaging of the gallbladder. He recently underwent ultrasound evaluation of the liver as part of a routine screening on 05/26/2024 and was incidentally noted to have a rounded masslike structure within the gallbladder lumen measuring approximately 4 x 4 by 3 x 9 by 4.1 cm. This is felt to be predominantly solid with scattered small cystic spaces. No significant internal vascularity was identified. Subsequent MRI performed on 06/26/2024 again revealed atypical rounded lobulated contour of the gallbladder. In the region of the gallbladder neck, there is a mild circumferential wall thickening with semi solid, polypoid protrusion into the gallbladder lumen which shows mild enhancement measuring 1.3 by 0.7 cm. No gallstones are seen. Smooth wall enhancement with no symmetric wall thickening in the body or fundus of the gallbladder is also noted. This was felt to be an atypical appearance of the gallbladder which did not appear typical for adenomyomatosis it may represent chronic postinflammatory changes or gallbladder carcinoma. No evidence of metastasis were identified. He denies any abdominal symptoms does report losing weight with dieting. FORMERLY [facility], [facility] Medical History Shoulder fracture, left Valvular heart disease Sleep apnea Appendicitis Surgical History History of umbilical hernia repair (09/22/22) History of laparoscopic appendectomy (09/22/22) H/O oral surgery Social History Household Members: None Housing: House Do you presently have visiting nurse or other home services: No Patient Tobacco Use Status: Never used Tobacco Second Hand Smoke Exposure: No service: No Review of Systems Const All systems reviewed & are unremarkable except as noted in HPI and below Physical Exam Vital Signs: Last Vital Signs Pulse 77 10/31/24 10:16 BP 154/66 H 10/31/24 10:16 BMI result Body Mass Index 30.9 Const General: no acute distress and well developed Nutritional Appearance: well nourished Orientation/consciousness: patient oriented x3 Limitations: no limitations Resp Effort & Inspection: normal respiratory effort, no audible wheezes, no cough and no respiratory distress GI Inspection: Yes incision (Three incisions are clean, dry, and intact) and Yes Abdominal panniculus present Palpation (GI): Soft to palpation, no guarding and not rigid Percussion: Yes normal to percussion Auscultation: normal bowel sounds Skin General skin exam: no rashes or lesions noted Neuro General: patient oriented x3 Extrem General: No edema Assessment & Plan Assessment & Plan (1) Mass of gallbladder: Code(s): K82.8 - Other specified diseases of gallbladder Category: Medical Plan 64-year-old male patient presenting for evaluation of a recently identified gallbladder mass 1st noted on routine ultrasound screening but confirmed on abdominal MRI. The patient is currently asymptomatic but does report losing weight with dieting. He denies nausea, vomiting, fever or chills. I reviewed the findings of the ultrasound and MRI and would recommend elective laparoscopic or possible open cholecystectomy for definitive diagnosis. After discussion of the procedure, risks, and alternatives, consents to the laparoscopic or possible open cholecystectomy which will be scheduled as a short-stay surgery. Coding Level of Care Code Est Pt Level 4 (56253) Diagnoses Mass of gallbladder K82.8
[2024-10-31 10:16] VITALS: BP 154/66; PULSE 77; BMI 30.9
== END 2024-10-31 10:31 | disposition home or self-care (01) ==
PROVIDERS: PCP Internal Medicine; Visit Provider Surgery
DX: K82.8 Other specified diseases of gallbladder (principal)
CPT/HCPCS: 99214

== ENCOUNTER → 2024-10-31 10:05 | Outpatient (BNVA) | payer MEDICARE, OTHER, SELFPAY | PROVIDERS: PCP Internal Medicine; Visit Provider Surgery | DX: K82.8 Other specified diseases of gallbladder (principal) | CPT/HCPCS: 99212 ==

== ENCOUNTER → 2024-11-14 12:43 | Outpatient (BNV) | payer MEDICARE, SELFPAY | PROVIDERS: PCP Internal Medicine; Visit Provider Internal Medicine Cardiovascular Disease | DX: R94.31 Abnormal electrocardiogram [ECG] [EKG] (principal); I49.3 Ventricular premature depolarization | CPT/HCPCS: 93010 ==

== ENCOUNTER → 2024-11-17 13:43 | Outpatient (REF) | payer MEDICARE, OTHER, SELFPAY ==
--- NOTE | 2024-11-17 13:50 | CA_ITS ---
Transthoracic Echocardiogram Patient (Last, First, Middle): Justino Karimi J Gender: Male Date of : 1960 Age: 64 Procedure Date: 11/17/2024 Procedure Type: Transthoracic Echocardiogram Location: OP Height: 172.72 cm Weight: 92.08 kg BSA: 2.06 m2 Heart Rate: 79 bpm BP: 154 / 66 mmHg Mounter Clarinets: SB Referring MD: James Atkins MD Symptoms: K82.8 - Other specified diseases of gallbladder, pre op clearance Study Quality: Adequate ECG Rhythm: Sinus Conclusions: - Normal left ventricular cavity size. There is normal left ventricular wall thickness. The left ventricular systolic function is mildly decreased. The visually estimated ejection fraction is between 40-45%. - E/E prime ratio is between 8 and 15 consistent with indeterminate filling pressures. - Normal right ventricular cavity size and systolic function. - The left atrium is mildly dilated. Findings Left Ventricle Normal left ventricular cavity size. There is normal left ventricular wall thickness. The left ventricular systolic function is mildly decreased. The visually estimated ejection fraction is between 40-45%. There is mild global hypokinesis. Abnormal diastolic function is noted. Spectral Doppler is indicative of an impaired relaxation filling pattern. E/E prime ratio is between 8 and 15 consistent with indeterminate filling pressures. Right Ventricle Normal right ventricular cavity size and systolic function. Atria The left atrium is mildly dilated. The right atrium is normal in size. Aortic Valve Normal aortic valve structure and function. There is no aortic valve stenosis. There is no aortic valve regurgitation. Mitral Valve There is trace mitral valve regurgitation. There is no mitral valve stenosis. Pulmonic Valve Normal pulmonic valve structure and function. There is no pulmonic valve regurgitation. Tricuspid Valve Normal tricuspid valve structure and function. There is no tricuspid valve regurgitation. Normal right atrial pressure. There is no evidence of pulmonary hypertension. Great Vessels All visible segments of the aorta are normal in size. The visualized portions of the pulmonary artery and branches are normal. Venous The inferior vena cava is normal in size and collapses greater than 50% with inspiration. Pericardium/Pleural There is no evidence of pericardial effusion. Prior Study Comparison No prior study available for comparison. Measurements 2D Linear Measurements IVSd: 0.70 0.6-0.9/0.6-1.0 cm LVIDd: 5.96 3.9-5.3/4.2-5.9 cm LVIDd Index: 2.89 2.4-3.2/2.2-3.1 cm/m2 LVIDs: 4.66 2.0-3.6 cm LVPWd: 0.75 0.7-1.1 cm LA Diam: 4.00 2.7-3.8/3.0-4.0 cm LAIDs Index: 1.94 1.5-2.3 cm/m2 LV Mass: 203.82 67-162/88-224 g LV Mass Index: 98.94 43-95/49-115 g/m2 LVOT Diam: 2.10 3.0+(-)1.3 cm 2D Systolic Function EF 4C: 50.30 >55% EF 2C: 39.40 >55% EF BiP: 45.50 >55% Mitral Valve MV Pk E: 0.95 MV PK A: 0.78 MV Decel Time: 153.00 E/A: 1.20 E'Lateral: 7.72 E'Medial: 5.22 E/E' Med: 18.10 E/E' Lat: 12.30 PHT: 45.00 MVA PHT: 4.89 Decel [place]: 6.17 Aortic Valve AoV Pk Bay: 1.15 AoV Pk Grad: 5.00 VAMSI: 2.65 LVOT LVOT Pk Bay: 0.84 LVOT Mn Bay: 0.66 LVOT VTI: 0.18 LVOT Pk Grad: 3.00 LVOT Mn Grad: 2.00 LVOT Diam: 2.10 LVOT Area: 3.46 Diastolic Function MV Pk E: 0.95 MV Pk A: 0.78 E/A: 1.20 E'Medial: 5.22 E/E' Med: 18.10 E' Laterial: 7.72 E/E' Lat: 12.30 Right Ventricle TAPSE (mm): 20.30 TVS' Bay: 11.00 Tricuspid Valve TR Pk Bay: 2.33 TR Pk Grad: 22.00 RA Press: 3.00 RVSP: 25.00 Great Vessels Aorta Sinus of Valsalva: 3.40 2.0-3.5 cm Ao Asc: 3.30 2.1-3.4 cm Pulmonary Veins Pulm Vein S/D 0.80 Pulmonary Valve PV Pk Bay: 0.68 Peak PV Grad: 2.00 Updated in Other Vendor System with Status of Final Carlos Mo MD electronically signed on 11/17/2024 3:32:22 PM with status of Final
== END ==
LOC: HO.CARD 13:43
PROVIDERS: Visit Provider Surgery
DX: K82.8 Other specified diseases of gallbladder (principal)
CPT/HCPCS: 93306

== ENCOUNTER → 2024-11-17 13:50 | Outpatient (BNV) | payer MEDICARE, SELFPAY | PROVIDERS: Visit Provider Internal Medicine Cardiovascular Disease | DX: I42.8 Other cardiomyopathies (principal) | CPT/HCPCS: 93306 ==

== ENCOUNTER → 2024-11-20 07:24 | Outpatient (BNV) | payer MEDICARE, SELFPAY | PROVIDERS: PCP Internal Medicine; Visit Provider Surgery | DX: Z90.49 Acquired absence of other specified parts of digestive tract (principal); K82.8 Other specified diseases of gallbladder | CPT/HCPCS: 47562; 99024; 99499 ==

== ENCOUNTER 2024-11-20 12:49 | Inpatient (IN) | payer MEDICARE, OTHER, SELFPAY ==
--- NOTE | 2024-11-14 | ECG_ITS ---
Test Reason : PRE OP Blood Pressure : */* mmHG Vent. Rate : 66 BPM Atrial Rate : 66 BPM P-R Int : 190 ms QRS Dur : 82 ms QT Int : 370 ms P-R-T Axes : 56 8 52 degrees QTcB Int : 387 ms Sinus rhythm with occasional Premature ventricular complexes Septal infarct (cited on or before 22-Sep-2022) Abnormal ECG When compared with ECG of 22-Sep-2022 13:22, Questionable change in initial forces of Septal leads QT has shortened Referred By: Maryann Celaya Electronically Signed By: Carlos Mo
[2024-11-14 12:04] VITALS: BP 136/67; PULSE 70; RESP 16; O2SAT 100; BMI 31.3
--- NOTE | 2024-11-14 12:28 | P.CONAN_ITS ---
Documented by User: Maryann Celaya NP 11/17/24 09:36 HPI - Anesthesia Eval Consult details Narrative: 64yo M for Cholecystectomy Laparoscopic,possible open, 11/20/24 Cardiac clearance visit 11/16/24 - needs updated ECHO No recent illness No CP/SOB walking, restoring car ETOH mediated non-ischemic CMP. Pt has cut back to a couple beers daily +Cocaine: last used a couple weeks ago PCP note lists cirrhosis. Nml liver on MRI 05/2024 PMFSH Active Problems Active Problems: All Active Problems Mass of gallbladder (Acute) Past Medical History Medical History Arthritis Numbness Pneumonia Non-ischemic cardiomyopathy Vasovagal syncope SOB (shortness of breath) Shoulder separation Recurrent genital herpes simplex Psoriasis Peyronie disease Obese MSSA bacteremia Cirrhosis Insomnia Hiatal hernia Erectile dysfunction Dupuytrens contracture Depression CKD (chronic kidney disease) stage 3, GFR 30-59 ml/min Chronic systolic congestive heart failure Anemia Alcohol abuse Adenomatous polyposis coli Abnormal liver function tests Shoulder fracture, left Valvular heart disease Sleep apnea Appendicitis Family History Family history of problems with anesthesia: No Surgical History Surgical History History of esophagogastroduodenoscopy (EGD) Hx of cardiac catheterization Hx of tooth extraction Hx of shoulder surgery H/O colonoscopy History of umbilical hernia repair (09/22/22) History of laparoscopic appendectomy (09/22/22) H/O oral surgery History of Problems with Anesthesia: No Social History Social History Household Members: None Housing: House Are you a primary child adolescent care to a significant other at home: No Do you presently have visiting nurse or other home services: No Patient Tobacco Use Status: Never used Tobacco Second Hand Smoke Exposure: No Use of substances other than those prescribed or required for medical reasons: Yes Substance Use Frequency: Occasionally Have you been hit, kicked, punched, or otherwise hurt by someone within the past year? If so, by whom?: No Are you DNR?: No Advance Directives: No Advance Directives Information Provided: Yes Advance Directives on File: No Recently lost weight without trying: No Eating poorly because of decreased appetite: No Nutrition Risks: No Nutritional Risk Poor oral hygiene: Yes (no teeth) service: No Meds Allergies Allergy/AdvReac Type Severity Reaction Status Date / Time No Known Allergies Allergy Unverified 10/30/22 08:57 [No Known Allergies*] Home Medications ?Medication ?Instructions ?Recorded ?Confirmed ?Last Taken ?Type carvedilol 3.125 mg tablet 1 tab PO BID 09/21/22 11/14/24 09/21/22 History folic acid 800 mcg tablet 0.8 mg PO DAILY 09/21/22 11/14/24 09/21/22 History furosemide 20 mg tablet 1 tab PO DAILY 09/21/22 11/14/24 09/21/22 History dsczwouuslnh-feodedmg-kdymwz tablet 1 tab PO DAILY 09/21/22 11/14/24 09/21/22 History quetiapine 100 mg tablet 1 tab PO BEDTIME 09/21/22 11/14/24 09/20/22 History spironolactone 25 mg tablet 1 tab PO DAILY 09/21/22 11/14/24 09/21/22 History thiamine HCl (vitamin B1) 100 mg 100 mg PO DAILY 09/21/22 11/14/24 09/21/22 History tablet aspirin 325 mg tablet 162.5 mg PO DAILY 11/14/24 11/14/24 Unknown History lisinopril 5 mg tablet 5 mg PO DAILY 11/14/24 11/14/24 Unknown History Exam Height,Weight and Vital Signs: Height 5 ft 8 in Weight 93.349 kg Last Vital Signs Pulse 70 11/14/24 12:04 Resp 16 11/14/24 12:04 BP 136/67 11/14/24 12:04 Pulse Ox 100 11/14/24 12:04 O2 Del Method Room Air 11/14/24 12:04 Pertinent Lab Results Pertinent Lab Results: Lab Results 11/14/24 Range/Units 12:57 WBC 5.4 (4.8-10.8) X10*3/uL RBC 3.72 L (4.60-5.80) X10*6/uL Hgb 11.7 L (14.0-18.0) g/dl Hct 34.5 L (42.0-52.0) % MCV 92.7 (80.0-98.0) fL MCH 31.5 (27.0-33.0) pg MCHC 33.9 (31.0-36.0) g/dl RDW 12.3 (11.0-16.0) % Plt Count 281 (160-400) X10*3/uL MPV 9.8 (9.4-12.4) fL Absolute Nucleated RBC 0.000 (0.0-0.012) X10*3/uL Nucleated RBC % (auto) 0.0 (0.0-0.2) /100WBC PT 10.9 (10.9-12.4) SEC INR 0.9 (0.9-1.1) Sodium 130 L (135-145) mmol/L Potassium 5.1 (3.3-5.1) mmol/L Chloride 99 (96-108) mmol/L Carbon Dioxide 24 (22-29) mmol/L Anion Gap 12 (12-20) BUN 18 H (9-16) mg/dL Creatinine 0.89 (0.5-1.4) mg/dL Estim Creat Clear Calc 91.7 Estimated GFR > 60 Random Glucose 93 (60-115) mg/dL Calcium 9.6 D (8.4-10.2) mg/dL Narrative Narrative: EKG 10/2024 Vent. Rate : 66 BPM Atrial Rate : 66 BPM P-R Int : 190 ms QRS Dur : 82 ms QT Int : 370 ms P-R-T Axes : 56 8 52 degrees QTcB Int : 387 ms Sinus rhythm with occasional Premature ventricular complexes Septal infarct (cited on or before 22-Sep-2022) Abnormal ECG When compared with ECG of 22-Sep-2022 13:22, Questionable change in initial forces of Septal leads QT has shortened MRI abdomen 05/2024 IMPRESSION: 1. Atypical rounded lobulated contour to gallbladder. Mild circumferential wall thickening at gallbladder neck with a small enhancing 1.3 cm polypoid protrusion into gallbladder lumen. Findings do not appear typical for adenomyomatosis and may represent chronic postinflammatory changes, but gallbladder carcinoma not excluded. Surgical consultation recommended. 2. No abdominal metastases. 3. Mild hepatic steatosis. LIVER: Normal contour and size. Normal parenchymal enhancement. No suspicious lesion. Mild hepatic steatosis as evidenced by loss of signal on opposed phase T1-weighted images. Fat fraction 6%. Airway Mallampati Class: II TM Dist: >3cm Neck ROM: Full Denture: Upper and Lower Heart: RRR Lungs: CTAB Assessment and Plan Assessment Anesthesia Assessment: Anesthesia Plan Discussed and PAT Visit Final Anesthetic Review Family History of Problems with Anesthesia: No History of Problems with Anesthesia: No Documented by User: Shanelle Eldridge MD 11/20/24 08:14 [facility] Past Medical History Medical History Arthritis Numbness Pneumonia Non-ischemic cardiomyopathy Vasovagal syncope SOB (shortness of breath) Shoulder separation Recurrent genital herpes simplex Psoriasis Peyronie disease Obese MSSA bacteremia Cirrhosis Insomnia Hiatal hernia Erectile dysfunction Dupuytrens contracture Depression CKD (chronic kidney disease) stage 3, GFR 30-59 ml/min Chronic systolic congestive heart failure Anemia Alcohol abuse Adenomatous polyposis coli Abnormal liver function tests Shoulder fracture, left Valvular heart disease Sleep apnea Appendicitis Surgical History Surgical History History of esophagogastroduodenoscopy (EGD) Hx of cardiac catheterization Hx of tooth extraction Hx of shoulder surgery H/O colonoscopy History of umbilical hernia repair (09/22/22) History of laparoscopic appendectomy (09/22/22) H/O oral surgery Social History Social History Household Members: None Housing: House Are you a primary child adolescent care to a significant other at home: No Do you presently have visiting nurse or other home services: No Patient Tobacco Use Status: Never used Tobacco Second Hand Smoke Exposure: No Use of substances other than those prescribed or required for medical reasons: Yes Substance Use Frequency: Occasionally Have you been hit, kicked, punched, or otherwise hurt by someone within the past year? If so, by whom?: No Are you DNR?: No Advance Directives: No Advance Directives Information Provided: Yes Advance Directives on File: No Recently lost weight without trying: No Eating poorly because of decreased appetite: No Nutrition Risks: No Nutritional Risk Poor oral hygiene: Yes (no teeth) service: No Meds Allergies Allergy/AdvReac Type Severity Reaction Status Date / Time No Known Allergies Allergy Unverified 10/30/22 08:57 [No Known Allergies*] Home Medications ?Medication ?Instructions ?Recorded ?Confirmed ?Last Taken ?Type carvedilol 3.125 mg tablet 1 tab PO BID 09/21/22 11/14/24 09/21/22 History folic acid 800 mcg tablet 0.8 mg PO DAILY 09/21/22 11/14/24 09/21/22 History furosemide 20 mg tablet 1 tab PO DAILY 09/21/22 11/14/24 09/21/22 History hykyfeimpplx-jyyyumww-bfuvjx tablet 1 tab PO DAILY 09/21/22 11/14/24 09/21/22 History quetiapine 100 mg tablet 1 tab PO BEDTIME 09/21/22 11/14/24 09/20/22 History spironolactone 25 mg tablet 1 tab PO DAILY 09/21/22 11/14/24 09/21/22 History thiamine HCl (vitamin B1) 100 mg 100 mg PO DAILY 09/21/22 11/14/24 09/21/22 History tablet aspirin 325 mg tablet 162.5 mg PO DAILY 11/14/24 11/14/24 Unknown History lisinopril 5 mg tablet 5 mg PO DAILY 11/14/24 11/14/24 Unknown History Assessment and Plan Assessment Anesthesia Assessment: Chart Reviewed Final Anesthetic Review NPO: Yes ASA Class: III Final Preanesthetic Review: No Changes in Pt Med Stat, Meds/Allgs Chart Reviewed, Consent Obtained/Reviewed and Anes Risks/Benef Reviewed Patient Risk: Intermediate Procedure Risk: Intermediate Anesthetic Plan Anesthetic Plan: GA Disposition: Standard PACU
[2024-11-14 14:04] LABS: Hematocrit 34.5 % (42.0-52.0); Hemoglobin 11.7 g/dl (14.0-18.0); Mean Corpuscular HGB Conc 33.9 g/dl (31.0-36.0); Mean Corpuscular Hemoglobin 31.5 pg (27.0-33.0); Mean Corpuscular Volume 92.7 fL (80.0-98.0); Mean Platelet Volume 9.8 fL (9.4-12.4); Platelet Count 281 X10*3/uL (160-400); Red Blood Count 3.72 X10*6/uL (4.60-5.80); Red Cell Distribution Width 12.3 % (11.0-16.0); White Blood Count 5.4 X10*3/uL (4.8-10.8)
[2024-11-14 14:12] LABS: INTERNATIONAL NORM RATIO 0.9 (0.9-1.1); Prothrombin Time 10.9 SEC (10.9-12.4)
[2024-11-14 14:33] LABS: Anion Gap 12 (12-20); Blood Urea Nitrogen 18 mg/dL (9-16); Calcium 9.6 mg/dL (8.4-10.2); Carbon Dioxide 24 mmol/L (22-29); Chloride 99 mmol/L (96-108); Creatinine Clr Calc Pharmacy 91.7; Estimated Glomerular Filt Rate > 60; Glucose Random 93 mg/dL (60-115); Potassium 5.1 mmol/L (3.3-5.1); Sodium 130 mmol/L (135-145)
[2024-11-20] VITALS (14 sets, daily range): BP systolic 116–161; BP diastolic 60–80; PULSE 62–90; RESP 14–18; TEMP 36.4–37; O2SAT 94–100
[2024-11-20 08:17] LABS: Amphetamine Screen Urine Not Detected (Not Detect); Barbiturates, Urine Not Detected (Not Detect); Benzodiazepines Screen Urine Not Detected (Not Detect); Buprenorphine Scr Not Detected (Not Detect); Cannabinoid Screen Urine Not Detected (Not Detect); Cocaine Screen Urine Not Detected (Not Detect); Fentanyl, urine Not Detected (Not Detect); Methadone Screen, Urine Not Detected (Not Detect); Opiate Screen Urine Not Detected (Not Detect); Oxycodone Screen Urine Not Detected (Not Detect); Phencyclidine Screen Urine Not Detected (Not Detect)
[2024-11-20] MEDS: Lactated Ringers 1,000 ML 100 ML IVCONT (08:32)
[2024-11-20] MEDS: Albuterol Sulfate (0.083%) 2.5 MG/3 ML VIAL.NEB INHALE (09:02)
--- NOTE | 2024-11-20 09:20 | MHC.SHP ---
Pre-Procedural Eval Section A - 24 Hr Update-Section A only Date of Service: 11/20/24 The patient is an INPATIENT: No Changes since office visit: Yes Patient answered all questions; No Cold of Flu in the past 2 weeks, No New Medical Problems and No Changes in Medication The patient has been examined within 24 hours of the surgical procedure. The History & Physical has been completed within 30 days and I have reviewed it.: Yes Section B - Complete if H&P > 30 days Chief Complaint: Other specified diseases of gallbladder Allergies: Allergies Allergy/AdvReac Type Severity Reaction Status Date / Time No Known Allergies Allergy Verified 11/20/24 08:24 [No Known Allergies*] Plan Diagnosis/Plan: Unchanged I have reviewed the history and physical and performed a pertinent physical examination on my patient. No changes have occurred unless specified. Time Spent With Patient Time: Total time managing care of this patient today ____ minutes.
--- NOTE | 2024-11-20 09:30 | PC.NURSE ---
new 11/[address] de oliveira and ok'd to proceed. urine tox negative. udn given for dim and slight exp wheezes on rt.
[2024-11-20] MEDS: cefoTEtan disodium 2 GM VIAL IVPUSH (09:40)
[2024-11-20] MEDS: Acetaminophen 1,000 MG/100 ML PIGGYBACK 400 MG IV ×3 (09:55→21:38)
--- NOTE | 2024-11-20 12:13 | W.PM.OPN ---
Operative Note Operative Note Date of Service: 11/20/24 Narrative: Preoperative diagnosis: Postoperative diagnosis: Same Procedure: Laparoscopic cholecystectomy Surgeon: James Atkins MD Professor Of Voice: BYRON Mackenzie, Justyn Farmer, MS-3 Anesthesia: General endotracheal Indications for procedure: 64-year-old male patient presenting with findings of a gallbladder mass within the gallbladder greater than 1 cm. This was confirmed on abdominal MRI. Operative findings: Purulent cholecystitis with markedly inflamed and contracted gallbladder wall. Specimen: gallbladder, wound culture Estimated blood loss: 200 mL Complications: None Drain: Yoseph-Villatoro 10. Procedure details: Patient was brought to the OR and placed in a supine position. After administering general anesthesia the patient's abdomen was prepped with ChloraPrep and draped in a sterile fashion. A surgical time-out was called the consent confirmed. Patient received preoperative antibiotics and Venodyne boots were in place. Local anesthesia consisting of 0.5% Sensorcaine without epinephrine was infiltrated in a periumbilical region. A 5 mm incision was made above the umbilicus in a transverse fashion. The Veress needle was then inserted while elevating abdominal cavity with towel clips. After positive drop test the abdomen was insufflated to a pressure of 15 mm of mercury. The Veress needle was then removed and a 5 mm trocar inserted. The camera was inserted in the abdomen explored. A 12 mm trocar was then placed in the epigastrium. Two 5 mm trocars placed in the right upper quadrant by the floor covering printer assistant. The patient was placed in reverse Trendelenburg positioning and rotated to the left. The gallbladder was noted to be densely adherent to the stomach and transverse colon. Careful dissection of the bowel off the gallbladder wall revealed a shrunk and scar gallbladder which was intrahepatic. The gallbladder was gently dissected and subsequently drained because of its marked distention. Purulent bile was noted within the gallbladder. Cultures were obtained of the fluid. The gallbladder was grasped with the fundus and retracted cephalad by the floor covering printer assistant. The infundibulum was then grasped and retracted away from the liver bed, also by the floor covering printer assistant. Dissection was difficult due to the friability of the gallbladder wall as well as the dense scarring. The decision was made to convert to an open procedure. A right subcostal (Arya) incision was then made and carried out through subcutaneous tissue through anterior rectus sheath through rectus and oblique muscles and through the posterior sheath using electrocautery. Peritoneum was entered. A bowel for retractor was then placed. Transverse colon and duodenum was packed with lap pads to protect. The gallbladder fundus was grasped with a Mercedez clamp purulence electrocautery was used to dissect the gallbladder off the liver edge. Some liver edge bleeding was encountered during the dissection which required suture ligation using a 3-0 chromic suture with a blunt needle. Hemostasis was achieved with a suture ligature. Dissection was continued down to the neck of the gallbladder. The cystic duct was identified ligated and divided. Cystic artery was also identified ligated and divided. The gallbladder was removed and sent to pathology for further examination. The abdominal cavity was then irrigated with saline solution. Wounds were again checked for hemostasis. A 10 Yoseph-Villatoro drain was then placed through a separate stab wound in the right upper quadrant and placed in the liver edge, gallbladder fossa. This was connected to bulb suctioned. Peritoneum and posterior sheath were then closed using a running 0 Polysorb suture. Anterior rectus sheath was then closed using a running 0 Polysorb suture. Dermis was reapproximated using interrupted 3-0 Polysorb sutures. Skin was closed using skin salomón. The upper midline trocar site was closed using a [id number] 0 Polysorb suture. Trocar incisions were closed using salomón. Sterile dressings were applied. The patient tolerated the procedure well, sponge, instrument, and needle counts reported as correct. The patient was transferred to PACU in stable condition.
[2024-11-20] MEDS: fentaNYL citrate/PF 100 MCG/2 ML VIAL 50 MCG IVPUSH (13:05)
--- NOTE | 2024-11-20 13:48 | PHA.MEDREC ---
Pharmacy Consult ? Medication Reconciliation Pharmacy has reviewed the medication reconciliation completed by nursing. Claims match.
[2024-11-20] MEDS: HYDROmorphone HCl 0.5 MG/0.5 ML SYRINGE IVPUSH ×3 (15:33→22:49)
[2024-11-20] MEDS: Dextrose 5 % and Lactated Ring 1,000 ML 100 ML IVCONT (15:51)
[2024-11-20] MEDS: Piperacillin Sodium/Tazobactam 3.375 GM in 0.9 % Sodium Chloride 50 ML IV ×2 (16:03→20:57)
--- NOTE | 2024-11-20 17:46 | P.CONIM_ITS ---
History of Present Illness Data of Consult Service Date: 11/20/24 Requesting physician: James Atkins Primary Care Provider: Julian Javier MD HPI Reason for consult: medical management 64y/o m with past medical history hx of cardiomyopathy (follow up in [facility] Dr frances bloom) : he went for outpatient surgical evaluation of a recently identified gallbladder mass 1st noted on routine ultrasound screening but confirmed on abdominal MRI. The patient is currently asymptomatic but does report losing weight with dieting. Patient came today for elective Laparoscopic cholecystectomy-patient went through the procedure laparoscopic cholecystectomy: As per operative notes possiblePurulent cholecystitis with markedly inflamed and contracted gallbladder wall. Seen and examined: Denies any new complaint of chest pain or shortness of breath or fever or chills or nausea or vomiting Denies any coughor weakness or numbness. social hx:denies smoking or rec sunstances. drinks 5-6 beers/week. Review of Systems 2 Review of Systems: As above. Yes all other systems are reviewed and are negative [facility] Medical History Arthritis Numbness Pneumonia Non-ischemic cardiomyopathy Vasovagal syncope SOB (shortness of breath) Shoulder separation Recurrent genital herpes simplex Psoriasis Peyronie disease Obese MSSA bacteremia Cirrhosis Insomnia Hiatal hernia Erectile dysfunction Dupuytrens contracture Depression CKD (chronic kidney disease) stage 3, GFR 30-59 ml/min Chronic systolic congestive heart failure Anemia Alcohol abuse Adenomatous polyposis coli Abnormal liver function tests Shoulder fracture, left Valvular heart disease Sleep apnea Appendicitis Surgical History History of esophagogastroduodenoscopy (EGD) Hx of cardiac catheterization Hx of tooth extraction Hx of shoulder surgery H/O colonoscopy History of umbilical hernia repair (09/22/22) History of laparoscopic appendectomy (09/22/22) H/O oral surgery Social History Household Members: None Housing: House Are you a primary transitional care nurse to a significant other at home: No Do you presently have visiting nurse or other home services: No Patient Tobacco Use Status: Never used Tobacco Second Hand Smoke Exposure: No Use of substances other than those prescribed or required for medical reasons: No Substance Use Type: Crack/Cocaine Substance Use Frequency: Weekly Last Used Substance: Weeks (ago) Last Used Substance Other:: Pt states he used off and on for years, occasional use, Currently Displaying Signs/Symptoms of Drug Intoxication Withdrawal: No Any prior treatment program specific to substance use: No Have you been hit, kicked, punched, or otherwise hurt by someone within the past year? If so, by whom?: No Do you feel safe in your current relationship?: No Current Relationship Is there a partner from a previous relationship who is making you feel unsafe now?: No Are you made to feel afraid or neglected: No Are you DNR?: No Advance Directives: No Advance Directives Information Provided: Yes Advance Directives on File: No Do you have a plan to hurt others: No Plan Recently lost weight without trying: No How much weight loss: Not applicable Eating poorly because of decreased appetite: No Nutrition screen score: 0 Nutrition Risks: No Nutritional Risk Poor oral hygiene: No service: No Meds Allergies Allergy/AdvReac Type Severity Reaction Status Date / Time No Known Allergies Allergy Verified 11/20/24 08:24 [No Known Allergies*] Active Medications: Current Medications Calcium Carbonate (Calcium Carbonate 750 Mg Tab.Chew) 750 mg PO Q4H PRN PRN Reason: Heartburn Carvedilol (Carvedilol 3.125 Mg Tablet) 3.125 mg PO BID [facility]; Protocol Folic Acid (Folic Acid 1 Mg Tablet) 1 mg PO DAILY [facility] Last Admin: 11/20/24 16:04 Dose: Not Given Furosemide (Furosemide 20 Mg Tablet) 20 mg PO DAILY [facility]; Protocol Hydromorphone HCl (Hydromorphone Hcl 0.5 Mg/0.5 Ml Syringe) 0.5 mg IVPUSH Q3H PRN; Protocol PRN Reason: Pain, Severe (Pain Scale 7-10) Last Admin: 11/20/24 15:33 Dose: 0.5 mg Acetaminophen (Ofirmev) 1,000 mg in 100 mls @ 400 mls/hr IV Q6H JENN Stop: 11/21/24 10:14 Last Infusion: 11/20/24 16:04 Dose: Infused Piperacillin Sod/Tazobactam (Sod 3.375 gm/ Sodium Chloride) 50 mls @ 100 mls/hr IV Q6H JENN Last Infusion: 11/20/24 16:38 Dose: Infused Lisinopril (Lisinopril 5 Mg Tablet) 5 mg PO DAILY [facility]; Protocol Magnesium Hydroxide (Milk Of Magnesia 30 Ml Oral.Susp) 30 ml PO DAILY PRN PRN Reason: Constipation Multivitamins/Vitamin C (Multivitamin Tablet) 1 tab PO DAILY [facility] Naloxone HCl (Naloxone Hcl 0.4 Mg/Ml Vial) 0.04 mg IVPUSH Q5M PRN PRN Reason: Excessive sedation or RR < 8 Ondansetron HCl (Ondansetron Hcl 4 Mg/2 Ml Vial) 4 mg IVPUSH QID PRN PRN Reason: Nausea Oxycodone HCl (Oxycodone Hcl Immed Release 5 Mg Tablet) 5 mg PO Q6H PRN PRN Reason: Pain, Moderate(Pain Scale 4-6) Quetiapine Fumarate (Quetiapine Fumarate 100 Mg Tablet) 100 mg PO BEDTIME [facility] Sodium Chloride (0.9 % Sodium Chloride Flush 3 Ml Syringe) 3 ml IVFLUSH QSHIFT [facility] Last Admin: 11/20/24 16:04 Dose: Not Given Spironolactone (Spironolactone 25 Mg Tablet) 25 mg PO DAILY [facility]; Protocol Thiamine HCl (Thiamine Hcl 100 Mg Tablet) 100 mg PO DAILY [facility] Zolpidem Tartrate (Zolpidem Tartrate 5 Mg Tablet) 5 mg PO BEDTIME PRN PRN Reason: Insomnia Home Medications ?Medication ?Instructions ?Recorded ?Confirmed ?Last Taken ?Type carvedilol 3.125 mg tablet 1 tab PO BID 09/21/22 11/14/24 11/20/24 07:15 History folic acid 800 mcg tablet 0.8 mg PO DAILY 09/21/22 11/14/24 09/21/22 History furosemide 20 mg tablet 1 tab PO DAILY 09/21/22 11/14/24 09/21/22 History [id number] tablet 1 tab PO DAILY 09/21/22 11/14/24 09/21/22 History quetiapine 100 mg tablet 1 tab PO BEDTIME 09/21/22 11/14/24 09/20/22 History spironolactone 25 mg tablet 1 tab PO DAILY 09/21/22 11/14/24 09/21/22 History thiamine HCl (vitamin B1) 100 mg 100 mg PO DAILY 09/21/22 11/14/24 09/21/22 History tablet aspirin 325 mg tablet 162.5 mg PO DAILY 11/14/24 11/14/24 11/14/24 History lisinopril 5 mg tablet 5 mg PO DAILY 11/14/24 11/14/24 Unknown History Physical Exam 2 Vital Signs and Narrative: Vital Signs: Last Vital Signs Temp 98.6 F 11/20/24 14:37 Pulse 73 11/20/24 14:37 Resp 16 11/20/24 14:37 BP 137/80 11/20/24 14:37 Pulse Ox 97 11/20/24 14:37 O2 Del Method Room Air 11/20/24 14:37 O2 Flow Rate 2 11/20/24 13:55 BMI result Body Mass Index 31.3 Appearance: Alert.? Oriented X3. cvs: rrr, [id number] . res: air entry fair,no rales or wheezing abd: mild discomfort /operation area ,nd, bs present. ext pulses present , no cyanosis. neuro: axo3 , nonfocal. Results Labs 11/14/24 12:57 11/14/24 12:57 Labs: Laboratory Results - last 24 hr 11/20/24 08:00 Urine Opiates Screen Not Detected Ur Buprenorphine Scrn Not Detected Ur Oxycodone Screen Not Detected Urine Methadone Screen Not Detected Urine Fentanyl Screen Not Detected Ur Barbiturates Screen Not Detected Ur Phencyclidine Scrn Not Detected Ur Amphetamines Screen Not Detected U Benzodiazepines Scrn Not Detected Urine Cocaine Screen Not Detected U Marijuana (THC) Screen Not Detected Assessment and Plan (1) Mass of gallbladder: Status: Acute Plan 64y/o m with past medical history hypertension,hx of cardiomyopathy -came for gallbladder mass status post elective cholecystectomy. Gallbladder mass vs choleycystitis : culture and pathology pending managment as per primary team Hyponatremia: Likely chronic sodium runs around 130 range. stop Hypotonic fluids moniter bmp closely hx of cardiomyopathy/Hx Heart failure: HF with reduced EF: currently euvolemic ,avoid ivf fluids if possible. ??Continue carvedilol and lisinopril, continue spironolactone.?lasix alcohol use : drinks 5-6 beers/week [employer] scale. We instructed in 5-6 beer is still too much, need to cutdown and if possible stop. added thiamine ,folic acid. ?Obese class I:?Advised weight loss to diet and exercise.? He is in agreement. Above management discussed with the patient in detail length he understand and in agreement with the above plan, time spent 70 minute, thank you for letting us participate in patient care will follow along with you.
[2024-11-20] MEDS: QUEtiapine Fumarate 100 MG TABLET PO (20:56)
[2024-11-20] MEDS: Zolpidem Tartrate 5 MG TABLET PO (20:56)
[2024-11-20] MEDS: ondansetron HCL 4 MG/2 ML VIAL IVPUSH (20:56)
[2024-11-20] MEDS: carvediloL 3.125 MG TABLET PO (20:56)
[2024-11-20] MEDS: 0.9 % Sodium Chloride Flush 3 ML SYRINGE IVFLUSH (20:57)
[2024-11-21] MEDS: ondansetron HCL 4 MG/2 ML VIAL IVPUSH ×2 (01:12→21:34)
[2024-11-21] MEDS: Piperacillin Sodium/Tazobactam 3.375 GM in 0.9 % Sodium Chloride 50 ML IV ×4 (02:44→21:31)
[2024-11-21] MEDS: HYDROmorphone HCl 0.5 MG/0.5 ML SYRINGE IVPUSH ×4 (02:45→21:32)
[2024-11-21 02:58] VITALS: BP 135/67; PULSE 75; RESP 16; TEMP 36.7; O2SAT 98
[2024-11-21] MEDS: Acetaminophen 1,000 MG/100 ML PIGGYBACK 400 MG IV (04:49)
--- NOTE | 2024-11-21 06:42 | PM.PNGS ---
Subjective Subjective Date of Service: 11/21/24 Interval history: No overnight events. Pt is doing well this morning, sitting up in bed upon examiner entry. He reports mild abdominal incision pain, with distention. Tolerating liquids po. No n/v, chest pain, tightness or palpitations. He has ambulated to restroom with no syncope. Has not passed flatus or had BM. Voiding urine spontaneously. He is eager to get out of the hospital. Physical Exam Vital Signs: Vital Signs: Last Vital Signs Temp 98.0 F 11/21/24 02:58 Pulse 75 11/21/24 02:58 Resp 16 11/21/24 02:58 BP 135/67 11/21/24 02:58 Pulse Ox 98 11/21/24 02:58 O2 Del Method Room Air 11/21/24 02:58 O2 Flow Rate 2 11/20/24 13:55 BMI result Body Mass Index 31.3 Const: General: no acute distress and alert Orientation/consciousness: patient oriented x3 Eyes: Sclerae: sclerae normal Resp: Effort & Inspection: Actively coughing Auscultation: crackles bilateral GI: Other: JENI tube draining ~60 mL of serosanguinous fluid Inspection: Yes distended and Yes incision Auscultation: Hypoactive bowel sounds present Skin: General skin exam: no rashes or lesions noted Neuro: General: patient oriented x3 Extrem: General: Yes normal to inspection and Yes no pedal edema Objective Data Active Medications Calcium Carbonate (Calcium Carbonate 750 Mg Tab.Chew) 750 mg PO Q4H PRN PRN Reason: Heartburn Carvedilol (Carvedilol 3.125 Mg Tablet) 3.125 mg PO BID [facility]; Protocol Last Admin: 11/20/24 20:56 Dose: 3.125 mg Documented By: ALEISHA Docusate Sodium (Docusate Sodium 100 Mg Capsule) 100 mg PO BID [facility] Folic Acid (Folic Acid 1 Mg Tablet) 1 mg PO DAILY [facility] Last Admin: 11/20/24 16:04 Dose: Not Given Documented By: BROCK Non-Admin Reason: Patient Refused Furosemide (Furosemide 20 Mg Tablet) 20 mg PO DAILY [facility]; Protocol Hydromorphone HCl (Hydromorphone Hcl 0.5 Mg/0.5 Ml Syringe) 0.5 mg IVPUSH Q3H PRN; Protocol PRN Reason: Pain, Severe (Pain Scale 7-10) Last Admin: 11/21/24 02:45 Dose: 0.5 mg Documented By: ALEISHA Acetaminophen (Ofirmev) 1,000 mg in 100 mls @ 400 mls/hr IV Q6H [facility] Stop: 11/21/24 10:14 Last Infusion: 11/21/24 05:13 Dose: Infused Documented By: NATHAN Piperacillin Sod/Tazobactam (Sod 3.375 gm/ Sodium Chloride) 50 mls @ 100 mls/hr IV Q6H [facility] Last Infusion: 11/21/24 03:14 Dose: Infused Documented By: GALINDO Lisinopril (Lisinopril 5 Mg Tablet) 5 mg PO DAILY [facility]; Protocol Magnesium Hydroxide (Milk Of Magnesia 30 Ml Oral.Susp) 30 ml PO DAILY PRN PRN Reason: Constipation Multivitamins/Vitamin C (Multivitamin Tablet) 1 tab PO DAILY [facility] Naloxone HCl (Naloxone Hcl 0.4 Mg/Ml Vial) 0.04 mg IVPUSH Q5M PRN PRN Reason: Excessive sedation or RR < 8 Ondansetron HCl (Ondansetron Hcl 4 Mg/2 Ml Vial) 4 mg IVPUSH QID PRN PRN Reason: Nausea Last Admin: 11/21/24 01:12 Dose: 4 mg Documented By: ALEISHA Oxycodone HCl (Oxycodone Hcl Immed Release 5 Mg Tablet) 5 mg PO Q6H PRN PRN Reason: Pain, Moderate(Pain Scale 4-6) Quetiapine Fumarate (Quetiapine Fumarate 100 Mg Tablet) 100 mg PO BEDTIME [facility] Last Admin: 11/20/24 20:56 Dose: 100 mg Documented By: ALEISHA Sodium Chloride (0.9 % Sodium Chloride Flush 3 Ml Syringe) 3 ml IVFLUSH QSHIFT [facility] Last Admin: 11/21/24 05:29 Dose: Not Given Documented By: GALINDO Non-Admin Reason: IV Running Spironolactone (Spironolactone 25 Mg Tablet) 25 mg PO DAILY [facility]; Protocol Thiamine HCl (Thiamine Hcl 100 Mg Tablet) 100 mg PO DAILY [facility] Zolpidem Tartrate (Zolpidem Tartrate 5 Mg Tablet) 5 mg PO BEDTIME PRN PRN Reason: Insomnia Last Admin: 11/20/24 20:56 Dose: 5 mg Documented By: ALEISHA Labs 11/14/24 12:57 11/14/24 12:57 Labs: Laboratory Results - last 24 hr 11/20/24 08:00 Urine Opiates Screen Not Detected Ur Buprenorphine Scrn Not Detected Ur Oxycodone Screen Not Detected Urine Methadone Screen Not Detected Urine Fentanyl Screen Not Detected Ur Barbiturates Screen Not Detected Ur Phencyclidine Scrn Not Detected Ur Amphetamines Screen Not Detected U Benzodiazepines Scrn Not Detected Urine Cocaine Screen Not Detected U Marijuana (THC) Screen Not Detected Microbiology Microbiology Results: Microbiology 11/20/24 Unknown Gram Stain - Final Gallbladder Anaerobic Culture - Preliminary Procedures Date of Service Date of Service: 11/21/24 Progress Note: A&P Assessment and plan Plan Justino is POD 1 from laparoscopic cholecystectomy. He is doing well on exam. s/p lap cristian -continue abx regimen -JENI draining serosanguinous fluid -Strict I&Os Pain management Pain well controlled on dilauded and tylenol PRN Tolerating liquids. Advance diet as tolerated today. Time Spent With Patient Time: Total time managing care of this patient today ____ minutes. Quality VTE VTE Risk Level:: Surgical - moderate VTE Device Contraindication: N/A - Device Ordered VTE Drug Contraindication: Treatment Not Indicated
[2024-11-21 07:12] LABS: MANUAL DIFF FLAG NO
--- NOTE | 2024-11-21 07:19 | PM.PNGS ---
Subjective Subjective Date of Service: 11/21/24 Interval history: No acute events over night reported. Physical Exam Vital Signs: Vital Signs: Last Vital Signs Temp 98.0 F 11/21/24 02:58 Pulse 75 11/21/24 02:58 Resp 16 11/21/24 02:58 BP 135/67 11/21/24 02:58 Pulse Ox 98 11/21/24 02:58 O2 Del Method Room Air 11/21/24 02:58 O2 Flow Rate 2 11/20/24 13:55 BMI result Body Mass Index 31.3 Const: General: cooperative, no acute distress, alert and awake Orientation/consciousness: patient oriented x3 Resp: Other: some coughing present Effort & Inspection: able to speak in complete sentences GI: Other: JENI drain connected to incision site present, slight leakage around the bandage. Inspection: Yes distended Skin: Other: bandages intact over incision sites Neuro: General: patient oriented x3 Objective Data Active Medications Calcium Carbonate (Calcium Carbonate 750 Mg Tab.Chew) 750 mg PO Q4H PRN PRN Reason: Heartburn Carvedilol (Carvedilol 3.125 Mg Tablet) 3.125 mg PO BID [facility]; Protocol Last Admin: 11/20/24 20:56 Dose: 3.125 mg Documented By: ALEISHA Docusate Sodium (Docusate Sodium 100 Mg Capsule) 100 mg PO BID [facility] Folic Acid (Folic Acid 1 Mg Tablet) 1 mg PO DAILY [facility] Last Admin: 11/20/24 16:04 Dose: Not Given Documented By: BROCK Non-Admin Reason: Patient Refused Furosemide (Furosemide 20 Mg Tablet) 20 mg PO DAILY [facility]; Protocol Hydromorphone HCl (Hydromorphone Hcl 0.5 Mg/0.5 Ml Syringe) 0.5 mg IVPUSH Q3H PRN; Protocol PRN Reason: Pain, Severe (Pain Scale 7-10) Last Admin: 11/21/24 02:45 Dose: 0.5 mg Documented By: ALEISHA Acetaminophen (Ofirmev) 1,000 mg in 100 mls @ 400 mls/hr IV Q6H [facility] Stop: 11/21/24 10:14 Last Infusion: 11/21/24 05:13 Dose: Infused Documented By: NATHAN Piperacillin Sod/Tazobactam (Sod 3.375 gm/ Sodium Chloride) 50 mls @ 100 mls/hr IV Q6H [facility] Last Infusion: 11/21/24 03:14 Dose: Infused Documented By: GALINDO Lisinopril (Lisinopril 5 Mg Tablet) 5 mg PO DAILY [facility]; Protocol Magnesium Hydroxide (Milk Of Magnesia 30 Ml Oral.Susp) 30 ml PO DAILY PRN PRN Reason: Constipation Multivitamins/Vitamin C (Multivitamin Tablet) 1 tab PO DAILY [facility] Naloxone HCl (Naloxone Hcl 0.4 Mg/Ml Vial) 0.04 mg IVPUSH Q5M PRN PRN Reason: Excessive sedation or RR < 8 Ondansetron HCl (Ondansetron Hcl 4 Mg/2 Ml Vial) 4 mg IVPUSH QID PRN PRN Reason: Nausea Last Admin: 11/21/24 01:12 Dose: 4 mg Documented By: ALEISHA Oxycodone HCl (Oxycodone Hcl Immed Release 5 Mg Tablet) 5 mg PO Q6H PRN PRN Reason: Pain, Moderate(Pain Scale 4-6) Quetiapine Fumarate (Quetiapine Fumarate 100 Mg Tablet) 100 mg PO BEDTIME [facility] Last Admin: 11/20/24 20:56 Dose: 100 mg Documented By: ALEISHA Sodium Chloride (0.9 % Sodium Chloride Flush 3 Ml Syringe) 3 ml IVFLUSH QSHIFT [facility] Last Admin: 11/21/24 05:29 Dose: Not Given Documented By: GALINDO Non-Admin Reason: IV Running Spironolactone (Spironolactone 25 Mg Tablet) 25 mg PO DAILY [facility]; Protocol Thiamine HCl (Thiamine Hcl 100 Mg Tablet) 100 mg PO DAILY [facility] Zolpidem Tartrate (Zolpidem Tartrate 5 Mg Tablet) 5 mg PO BEDTIME PRN PRN Reason: Insomnia Last Admin: 11/20/24 20:56 Dose: 5 mg Documented By: ALEISHA Labs 11/21/24 05:41 11/21/24 05:41 Labs: Laboratory Results - last 24 hr 11/20/24 08:00 Urine Opiates Screen Not Detected Ur Buprenorphine Scrn Not Detected Ur Oxycodone Screen Not Detected Urine Methadone Screen Not Detected Urine Fentanyl Screen Not Detected Ur Barbiturates Screen Not Detected Ur Phencyclidine Scrn Not Detected Ur Amphetamines Screen Not Detected U Benzodiazepines Scrn Not Detected Urine Cocaine Screen Not Detected U Marijuana (THC) Screen Not Detected Microbiology Microbiology Results: Microbiology 11/20/24 Unknown Gram Stain - Final Gallbladder Anaerobic Culture - Preliminary Procedures Date of Service Date of Service: 11/21/24 Progress Note: A&P Assessment and plan Plan Lm is post op day 1 from a lap cholecystectomy. Intake and output will continue to be monitored, as well as the JENI drain for the type of fluid and the incision sites. He will continue a soft diet, as he stated that is what he can tolerate. Time Spent With Patient Time: Total time managing care of this patient today __10__ minutes. Quality VTE VTE Risk Level:: Surgical - moderate VTE Device Contraindication: N/A - Device Ordered VTE Drug Contraindication: Treatment Not Indicated
[2024-11-21 07:26] LABS: Basophils Percent Auto 0.2 % (0-2); Eosinophils Percent Auto 0.1 % (0-4); Hematocrit 28.1 % (42.0-52.0); Hemoglobin 10.1 g/dl (14.0-18.0); Imm Gran Abs Auto 0.04 X10*3/uL (0.00-0.03); Imm Gran Pct Auto 0.4 % (0.0-0.4); Lymphocytes Absolute Auto 0.8 X10*3/uL (1.2-4.9); Lymphocytes Percent Auto 8.7 % (20-40); Mean Corpuscular HGB Conc 35.9 g/dl (31.0-36.0); Mean Corpuscular Hemoglobin 32.2 pg (27.0-33.0); Mean Corpuscular Volume 89.5 fL (80.0-98.0); Mean Platelet Volume 9.8 fL (9.4-12.4); Monocytes Absolute Auto 1.1 X10*3/uL (0.1-1.2); Monocytes Percent Auto 11.2 % (2-11); Neutrophils Absolute Auto 7.7 x10*3/uL (2.0-8.3); Neutrophils Percent Auto 79.4 % (45-73); Platelet Count 256 X10*3/uL (160-400); Red Blood Count 3.14 X10*6/uL (4.60-5.80); Red Cell Distribution Width 12.3 % (11.0-16.0); White Blood Count 9.7 X10*3/uL (4.8-10.8)
[2024-11-21 07:42] LABS: Alanine Aminotransferase 27 U/L (0-40); Albumin Level 3.6 g/dL (3.5-5.0); Alkaline Phosphatase 53 U/L (39-117); Anion Gap 13 (12-20); Aspartate Amino Transferase 36 U/L (5-37); Bilirubin Direct 0.5 mg/dL (0.0-0.5); Bilirubin Total 1.1 mg/dL (0.0-1.0); Blood Urea Nitrogen 16 mg/dL (9-16); Calcium 8.6 mg/dL (8.4-10.2); Carbon Dioxide 20 mmol/L (22-29); Chloride 98 mmol/L (96-108); Creatinine Clr Calc Pharmacy 75.5; Estimated Glomerular Filt Rate > 60; Glucose Random 103 mg/dL (60-115); Potassium 4.3 mmol/L (3.3-5.1); Sodium 127 mmol/L (135-145); Total Protein 6.4 g/dL (6.5-8.0)
[2024-11-21 07:44] VITALS: BP 120/69; PULSE 74; RESP 16; TEMP 36.7; O2SAT 97
--- NOTE | 2024-11-21 07:45 | P.PNGS_ITS ---
Subjective Subjective Date of Service: 11/21/24 <Michelle Garcia PA-C - Last Filed: 11/21/24 07:50> 11/21/24 <James Atkins MD - Last Filed: 11/21/24 07:53> Interval history: Feels very sore this morning. Tolerating clear liquids but does not feel ready for solid food. OOB and ambulated short distance yesterday. Belching, denies flatus or BM. <Michelle Garcia PA-C - Last Filed: 11/21/24 07:50> Physical Exam 2 Vital Signs: Vital Signs: Last Vital Signs Temp 98.0 F 11/21/24 02:58 Pulse 75 11/21/24 02:58 Resp 16 11/21/24 02:58 BP 135/67 11/21/24 02:58 Pulse Ox 98 11/21/24 02:58 O2 Del Method Room Air 11/21/24 02:58 O2 Flow Rate 2 11/20/24 13:55 BMI result Body Mass Index 31.3 <Michelle Garcia PA-C - Last Filed: 11/21/24 07:50> Const: General: comfortable, no acute distress and alert <MARGIE Mackenzie Last Filed: 11/21/24 07:50> Orientation/consciousness: patient oriented x3 <Michelle Garcia PA-C - Last Filed: 11/21/24 07:50> Resp: Effort & Inspection: normal respiratory effort <Michelle Garcia PA-C - Last Filed: 11/21/24 07:50> GI: Other: dressings clean and intact mild incisional tenderness abd softly distended JENI drain dark sanguineous output <Michelle Gracia PA-C - Last Filed: 11/21/24 07:50> Percussion: Yes tympanic to percussion <MARGIE Mackenzie Last Filed: 11/21/24 07:50> Skin: General skin exam: no rashes or lesions noted <MARGIE Mackenzie Last Filed: 11/21/24 07:50> Neuro: General: patient oriented x3 and moves all extremities <Michelle Garcia PA-C - Last Filed: 11/21/24 07:50> Objective Data Active Medications Calcium Carbonate (Calcium Carbonate 750 Mg Tab.Chew) 750 mg PO Q4H PRN PRN Reason: Heartburn Carvedilol (Carvedilol 3.125 Mg Tablet) 3.125 mg PO BID [facility]; Protocol Last Admin: 11/20/24 20:56 Dose: 3.125 mg Documented By: ALEISHA Docusate Sodium (Docusate Sodium 100 Mg Capsule) 100 mg PO BID [facility] Folic Acid (Folic Acid 1 Mg Tablet) 1 mg PO DAILY [facility] Last Admin: 11/20/24 16:04 Dose: Not Given Documented By: BROCK Non-Admin Reason: Patient Refused Furosemide (Furosemide 20 Mg Tablet) 20 mg PO DAILY [facility]; Protocol Hydromorphone HCl (Hydromorphone Hcl 0.5 Mg/0.5 Ml Syringe) 0.5 mg IVPUSH Q3H PRN; Protocol PRN Reason: Pain, Severe (Pain Scale 7-10) Last Admin: 11/21/24 02:45 Dose: 0.5 mg Documented By: ALEISHA Acetaminophen (irmev) 1,000 mg in 100 mls @ 400 mls/hr IV Q6H [facility] Stop: 11/21/24 10:14 Last Infusion: 11/21/24 05:13 Dose: Infused Documented By: NATHAN Piperacillin Sod/Tazobactam (Sod 3.375 gm/ Sodium Chloride) 50 mls @ 100 mls/hr IV Q6H [facility] Last Infusion: 11/21/24 03:14 Dose: Infused Documented By: GALINDO Lisinopril (Lisinopril 5 Mg Tablet) 5 mg PO DAILY [facility]; Protocol Magnesium Hydroxide (Milk Of Magnesia 30 Ml Oral.Susp) 30 ml PO DAILY PRN PRN Reason: Constipation Multivitamins/Vitamin C (Multivitamin Tablet) 1 tab PO DAILY [facility] Naloxone HCl (Naloxone Hcl 0.4 Mg/Ml Vial) 0.04 mg IVPUSH Q5M PRN PRN Reason: Excessive sedation or RR < 8 Ondansetron HCl (Ondansetron Hcl 4 Mg/2 Ml Vial) 4 mg IVPUSH QID PRN PRN Reason: Nausea Last Admin: 11/21/24 01:12 Dose: 4 mg Documented By: ALEISHA Oxycodone HCl (Oxycodone Hcl Immed Release 5 Mg Tablet) 5 mg PO Q6H PRN PRN Reason: Pain, Moderate(Pain Scale 4-6) Quetiapine Fumarate (Quetiapine Fumarate 100 Mg Tablet) 100 mg PO BEDTIME [facility] Last Admin: 11/20/24 20:56 Dose: 100 mg Documented By: ALEISHA Sodium Chloride (0.9 % Sodium Chloride Flush 3 Ml Syringe) 3 ml IVFLUSH QSHIFT [facility] Last Admin: 11/21/24 05:29 Dose: Not Given Documented By: GALINDO Non-Admin Reason: IV Running Spironolactone (Spironolactone 25 Mg Tablet) 25 mg PO DAILY [facility]; Protocol Thiamine HCl (Thiamine Hcl 100 Mg Tablet) 100 mg PO DAILY [facility] Zolpidem Tartrate (Zolpidem Tartrate 5 Mg Tablet) 5 mg PO BEDTIME PRN PRN Reason: Insomnia Last Admin: 11/20/24 20:56 Dose: 5 mg Documented By: ALEISHA <Michelle Garcia PA-C - Last Filed: 11/21/24 07:50> Labs CBC & Chem 7: 11/21/24 05:41 11/21/24 05:41 <Michelle Garcia PA-C - Last Filed: 11/21/24 07:50> Labs: Laboratory Results - last 24 hr 11/20/24 11/21/24 08:00 05:41 MCV 89.5 MCH 32.2 MCHC 35.9 RDW 12.3 Plt Count 256 MPV 9.8 Immature Gran % (Auto) 0.4 Neut % (Auto) 79.4 H Lymph % (Auto) 8.7 L [place] % (Auto) 11.2 H Eos % (Auto) 0.1 Baso % (Auto) 0.2 Lymph # (Auto) 0.8 L [place] # (Auto) 1.1 Eos # (Auto) 0.0 Baso # (Auto) 0.0 Abs Immat Gran (auto) 0.04 H Absolute Neuts (auto) 7.7 Absolute Nucleated RBC 0.000 Nucleated RBC % (auto) 0.0 Anion Gap 13 Estim Creat Clear Calc 75.5 Estimated GFR > 60 Random Glucose 103 Calcium 8.6 D Total Bilirubin 1.1 H Direct Bilirubin 0.5 AST 36 ALT 27 Alkaline Phosphatase 53 Total Protein 6.4 L Albumin 3.6 Urine Opiates Screen Not Detected Ur Buprenorphine Scrn Not Detected Ur Oxycodone Screen Not Detected Urine Methadone Screen Not Detected Urine Fentanyl Screen Not Detected Ur Barbiturates Screen Not Detected Ur Phencyclidine Scrn Not Detected Ur Amphetamines Screen Not Detected U Benzodiazepines Scrn Not Detected Urine Cocaine Screen Not Detected U Marijuana (THC) Screen Not Detected <Michelle Garcia PA-C - Last Filed: 11/21/24 07:50> Microbiology Microbiology Results: Microbiology 11/20/24 Unknown Gram Stain - Final Gallbladder Anaerobic Culture - Preliminary <Michelle Garcia PA-C - Last Filed: 11/21/24 07:50> Procedures Date of Service Date of Service: 11/21/24 <Michelle Garcia PA-C - Last Filed: 11/21/24 07:50> 11/21/24 <James Atkins MD - Last Filed: 11/21/24 07:53> Progress Note: A&P Assessment and plan (1) S/P cholecystectomy: Status: Acute <Michelle Garcia PA-C - Last Filed: 11/21/24 07:50> (2) Mass of gallbladder: Status: Acute <Michelle Garcia PA-C - Last Filed: 11/21/24 07:50> Assessment and Plan: POD #1 s/p lap attempted converted to open cholecystectomy. Found to have purulent cholecystitis with markedly inflamed and contracted gallbladder wall. Doing fairly well post op, using IV analgesics for pain. VSS. Abd exam overall benign with appropriate post op tenderness, dressings clean and intact, mildly distended. JENI drain output nonbilious, moderate. Encouraged increasing activity, use oral analgesics in preparation for discharge. Will reassess later today and if remains comfortable, stable for dc. Will remove JENI drain prior. <Michelle Garcia PA-C - Last Filed: 11/21/24 07:50> POD #1 s/p lap attempted converted to open cholecystectomy. Found to have purulent cholecystitis with markedly inflamed and contracted gallbladder wall. Doing fairly well post op, using IV analgesics for pain. VSS. Abd exam overall benign with appropriate post op tenderness, dressings clean and intact, mildly distended. JENI drain output nonbilious, moderate. Encouraged increasing activity, use oral analgesics in preparation for discharge. Will reassess later today and if remains comfortable, stable for dc. Will remove JENI drain prior. Seen and examined and agree with the above assessment and plan. Dressings are clean and intact. JENI producing minimally dark thin bloody fluid with no evidence of bile. Patient does not feel ready for solid food we will gradually advance over the next several days. Encouraged out of bed and ambulation, incentive spirometry. Awaiting pathology results. <James Atkins MD - Last Filed: 11/21/24 07:53> Time Spent With Patient Time: Total time managing care of this patient today ____ minutes. <Michelle Garcia PA-C - Last Filed: 11/21/24 07:50> Quality Stroke Does the patient have a stroke diagnosis?: No <Michelle Garcia PA-C - Last Filed: 11/21/24 07:50> VTE Prior VTE?: No <Michelle Garcia PA-C - Last Filed: 11/21/24 07:50> VTE Risk Level:: Surgical - moderate <Michelle Garcia PA-C - Last Filed: 11/21/24 07:50> VTE Device Contraindication: N/A - Device Ordered <Michelle Garcia PA-C - Last Filed: 11/21/24 07:50> VTE Drug Contraindication: Treatment Not Indicated <Michelle Garcia PA-C - Last Filed: 11/21/24 07:50>
[2024-11-21] MEDS: Furosemide 20 MG TABLET PO (08:34)
[2024-11-21] MEDS: Folic Acid 1 MG TABLET PO (08:42)
[2024-11-21] MEDS: Spironolactone 25 MG TABLET PO (08:42)
[2024-11-21] MEDS: lisinopriL 5 MG TABLET PO (08:42)
[2024-11-21] MEDS: carvediloL 3.125 MG TABLET PO ×2 (08:42→21:31)
[2024-11-21] MEDS: Thiamine HCL 100 MG TABLET PO (08:43)
[2024-11-21] MEDS: Multivitamin TABLET 1 TAB PO (08:43)
[2024-11-21] MEDS: Docusate Sodium 100 MG CAPSULE PO ×2 (08:43→21:31)
--- NOTE | 2024-11-21 09:07 | P.CONHOSP_ITS ---
History of Present Illness Data of Consult Service Date: 11/21/24 Requesting physician: James Atkins Primary Care Provider: Julian Javier MD [facility] Reason for consult: medical management s/p cholecystectomy Patient is a 64-year-old male seen by Dr. Hensley yesterday for medical management consult ordered by surgery. Patient is status post cholecystectomy for gallbladder mass. Pathology is currently pending. Patient is now tolerating oral intake and is having mild abdominal pain secondary to surgical intervention. Patient does have history of alcohol abuse and is not currently going through withdrawal symptoms. Patient's sodium today was noted to be 127. Patient has history of low sodium levels back in August of 2024. This could be secondary to his chronic alcohol use. Patient also has known cardiomyopathy with heart failure and reduced EF of 40-45% via echo that was done November 17 prior to his surgery. Patient is normally on ARTI inhibitor lisinopril 5 mg daily, Lasix daily Coreg twice daily and spironolactone. Patient was given 1 g of sodium chloride orally and repeat sodium is now 129. Patient's mental status is intact. Nephrology has been requested to consult on this patient as well. Vital signs are stable and patient is on room air. Patient remains afebrile. Review of Systems 2 Review of Systems: Patient denies any chest pain, shortness of breath at rest or with exertion, is reporting abdominal incisional pain 6/10 and is being medicated with good effect. Patient denies any lower calf pain. Patient is tolerating appetite based on current diet ordered. Patient denies any headache, visual changes, dizziness or lightheadedness when standing. Yes all other systems are reviewed and are negative [facility] Medical History (Updated 11/21/24 @ 12:26 by Johanny Scott [facility]) Arthritis Numbness Pneumonia Non-ischemic cardiomyopathy Vasovagal syncope SOB (shortness of breath) Shoulder separation Recurrent genital herpes simplex Psoriasis Peyronie disease Obese MSSA bacteremia Cirrhosis Insomnia Hiatal hernia Erectile dysfunction Dupuytrens contracture Depression CKD (chronic kidney disease) stage 3, GFR 30-59 ml/min Chronic systolic congestive heart failure Anemia Alcohol abuse Adenomatous polyposis coli Abnormal liver function tests Shoulder fracture, left Valvular heart disease Sleep apnea Appendicitis Cognitive capacity: intact, A/O X3 Functional capacity: independent ambulation (adjusted for post op recovery ) Surgical History History of esophagogastroduodenoscopy (EGD) Hx of cardiac catheterization Hx of tooth extraction Hx of shoulder surgery H/O colonoscopy History of umbilical hernia repair (09/22/22) History of laparoscopic appendectomy (09/22/22) H/O oral surgery Social History Household Members: None Housing: House Are you a primary care director rn to a significant other at home: No Do you presently have visiting nurse or other home services: No Patient Tobacco Use Status: Never used Tobacco Second Hand Smoke Exposure: No Use of substances other than those prescribed or required for medical reasons: No Substance Use Type: Crack/Cocaine Substance Use Frequency: Weekly Last Used Substance: Weeks (ago) Last Used Substance Other:: Pt states he used off and on for years, occasional use, Currently Displaying Signs/Symptoms of Drug Intoxication Withdrawal: No Any prior treatment program specific to substance use: No Have you been hit, kicked, punched, or otherwise hurt by someone within the past year? If so, by whom?: No Do you feel safe in your current relationship?: No Current Relationship Is there a partner from a previous relationship who is making you feel unsafe now?: No Are you made to feel afraid or neglected: No Are you DNR?: No Advance Directives: No Advance Directives Information Provided: Yes Advance Directives on File: No Do you have a plan to hurt others: No Plan Recently lost weight without trying: No How much weight loss: Not applicable Eating poorly because of decreased appetite: No Nutrition screen score: 0 Nutrition Risks: No Nutritional Risk Poor oral hygiene: No service: No Ebola Risk: Travel/Contact With Anyone From Affected Area/s: No Has Patient Experienced Ebola Symptoms: No Meds Allergies Allergy/AdvReac Type Severity Reaction Status Date / Time No Known Allergies Allergy Verified 11/20/24 08:24 [No Known Allergies*] Active Medications: Current Medications Calcium Carbonate (Calcium Carbonate 750 Mg Tab.Chew) 750 mg PO Q4H PRN PRN Reason: Heartburn Carvedilol (Carvedilol 3.125 Mg Tablet) 3.125 mg PO BID [facility]; Protocol Last Admin: 11/21/24 08:42 Dose: 3.125 mg Docusate Sodium (Docusate Sodium 100 Mg Capsule) 100 mg PO BID [facility] Last Admin: 11/21/24 08:43 Dose: 100 mg Folic Acid (Folic Acid 1 Mg Tablet) 1 mg PO DAILY [facility] Last Admin: 11/21/24 08:42 Dose: 1 mg Furosemide (Furosemide 20 Mg Tablet) 20 mg PO DAILY [facility]; Protocol Hydromorphone HCl (Hydromorphone Hcl 0.5 Mg/0.5 Ml Syringe) 0.5 mg IVPUSH Q3H PRN; Protocol PRN Reason: Pain, Severe (Pain Scale 7-10) Last Admin: 11/21/24 08:43 Dose: 0.5 mg Hydromorphone HCl (Hydromorphone Hcl 2 Mg Tablet) 2 mg PO Q4H PRN PRN Reason: Pain, Moderate(Pain Scale 4-6) Acetaminophen (Ofirmev) 1,000 mg in 100 mls @ 400 mls/hr IV Q6H [facility] Stop: 11/21/24 10:14 Last Infusion: 11/21/24 05:13 Dose: Infused Piperacillin Sod/Tazobactam (Sod 3.375 gm/ Sodium Chloride) 50 mls @ 100 mls/hr IV Q6H [facility] Last Admin: 11/21/24 08:42 Dose: 100 mls/hr Lisinopril (Lisinopril 5 Mg Tablet) 5 mg PO DAILY [facility]; Protocol Last Admin: 11/21/24 08:42 Dose: 5 mg Magnesium Hydroxide (Milk Of Magnesia 30 Ml Oral.Susp) 30 ml PO DAILY PRN PRN Reason: Constipation Multivitamins/Vitamin C (Multivitamin Tablet) 1 tab PO DAILY [facility] Last Admin: 11/21/24 08:43 Dose: 1 tab Naloxone HCl (Naloxone Hcl 0.4 Mg/Ml Vial) 0.04 mg IVPUSH Q5M PRN PRN Reason: Excessive sedation or RR < 8 Ondansetron HCl (Ondansetron Hcl 4 Mg/2 Ml Vial) 4 mg IVPUSH QID PRN PRN Reason: Nausea Last Admin: 11/21/24 01:12 Dose: 4 mg Quetiapine Fumarate (Quetiapine Fumarate 100 Mg Tablet) 100 mg PO BEDTIME [facility] Last Admin: 11/20/24 20:56 Dose: 100 mg Sodium Chloride (0.9 % Sodium Chloride Flush 3 Ml Syringe) 3 ml IVFLUSH QSHIFT [facility] Last Admin: 11/21/24 05:29 Dose: Not Given Spironolactone (Spironolactone 25 Mg Tablet) 25 mg PO DAILY [facility]; Protocol Last Admin: 11/21/24 08:42 Dose: 25 mg Thiamine HCl (Thiamine Hcl 100 Mg Tablet) 100 mg PO DAILY [facility] Last Admin: 11/21/24 08:43 Dose: 100 mg Zolpidem Tartrate (Zolpidem Tartrate 5 Mg Tablet) 5 mg PO BEDTIME PRN PRN Reason: Insomnia Last Admin: 11/20/24 20:56 Dose: 5 mg Home Medications ?Medication ?Instructions ?Recorded ?Confirmed ?Last Taken ?Type carvedilol 3.125 mg tablet 1 tab PO BID 09/21/22 11/14/24 11/20/24 07:15 History folic acid 800 mcg tablet 0.8 mg PO DAILY 09/21/22 11/14/24 09/21/22 History furosemide 20 mg tablet 1 tab PO DAILY 09/21/22 11/14/24 09/21/22 History zuzmkqrczguv-lytwhcuj-rypaaf tablet 1 tab PO DAILY 09/21/22 11/14/24 09/21/22 History quetiapine 100 mg tablet 1 tab PO BEDTIME 09/21/22 11/14/24 09/20/22 History spironolactone 25 mg tablet 1 tab PO DAILY 09/21/22 11/14/24 09/21/22 History thiamine HCl (vitamin B1) 100 mg 100 mg PO DAILY 09/21/22 11/14/24 09/21/22 History tablet aspirin 325 mg tablet 162.5 mg PO DAILY 11/14/24 11/14/24 11/14/24 History lisinopril 5 mg tablet 5 mg PO DAILY 11/14/24 11/14/24 Unknown History Physical Exam 2 Vital Signs and Narrative: Vital Signs: Last Vital Signs Temp 98.0 F 11/21/24 07:44 Pulse 74 11/21/24 07:44 Resp 16 11/21/24 07:44 BP 120/69 11/21/24 07:44 Pulse Ox 97 11/21/24 07:44 O2 Del Method Room Air 11/21/24 07:44 O2 Flow Rate 2 11/20/24 13:55 BMI result Body Mass Index 31.3 Alert and orientated X3, able to give good history. Neuro: CN II-X11 intact, no deficits, visual acuity intact Cognition intact, memory is good. EYES: PERRLA, EOM intact ENT: hearing intact, no issues with swallowing, uvula midline, lips moist, nares patent no epistaxis Cardiac: S1 S2 RRR, no murmur, no JVD, no edema in Lower ext Pulmonary: lungs clear to ausculation B Abdominal: abd slightly distended, mildly active bowel sounds present, dressings dry and intact MSK: strength 5/5 upper and lower extremities : no CVA tenderness no bladder distension Extremities: no edema in lower extremities, PT and DP pulses palpable +2 Psych: mood stable, judgement and insight good no signs of active withdrawal noted Results Labs 11/21/24 05:41 11/21/24 11:14 Labs: Laboratory Results - last 24 hr 11/21/24 05:41 MCV 89.5 MCH 32.2 MCHC 35.9 RDW 12.3 Plt Count 256 MPV 9.8 Immature Gran % (Auto) 0.4 Neut % (Auto) 79.4 H Lymph % (Auto) 8.7 L [place] % (Auto) 11.2 H Eos % (Auto) 0.1 Baso % (Auto) 0.2 Lymph # (Auto) 0.8 L [place] # (Auto) 1.1 Eos # (Auto) 0.0 Baso # (Auto) 0.0 Abs Immat Gran (auto) 0.04 H Absolute Neuts (auto) 7.7 Absolute Nucleated RBC 0.000 Nucleated RBC % (auto) 0.0 Anion Gap 13 Estim Creat Clear Calc 75.5 Estimated GFR > 60 Random Glucose 103 Calcium 8.6 D Total Bilirubin 1.1 H Direct Bilirubin 0.5 AST 36 ALT 27 Alkaline Phosphatase 53 Total Protein 6.4 L Albumin 3.6 Assessment and Plan (1) S/P cholecystectomy: Status: Acute (2) Mass of gallbladder: Status: Acute (3) Hyponatremia: Status: Acute (4) Anemia: Qualifiers: Anemia type: unspecified type Qualified Code(s): D64.9 - Anemia, unspecified Status: Acute (5) Alcohol abuse: Status: Acute (6) Chronic systolic congestive heart failure: Status: Acute (7) Sleep apnea: Qualifiers: Sleep apnea type: other type Qualified Code(s): G47.39 - Other sleep apnea Status: Acute Plan Gallbladder mass vs choleycystitis : culture and pathology pending, managed by surgery Hyponatremia: Likely chronic sodium runs around 130 range. Hypotonic fluids stopped 11/20 Na 11/21 127, po NAcl provided 1GM, NA 129 on repeat No mental status changes noted, pt has hx of ETOH abuse BMP in AM, urine studies pending Nephrology consulted for review Anemia H/H post surgical stable Will add iron studies if not already completed Alcohol use : drinks 5-6 beers/week ciwa scale. We instructed in 5-6 beer is still too much, need to cutdown and if possible stop. added thiamine ,folic acid. Hx of cardiomyopathy/Hx Heart failure: HF with reduced EF: currently euvolemic ,avoid ivf fluids if possible. Continue carvedilol and lisinopril, continue spironolactone.?lasix ?Obese class I:?Advised weight loss to diet and exercise.? He is in agreement. Total time managing care of this patient today: 35 minutes.
[2024-11-21] MEDS: Sodium Chloride Tab 1 GM TABLET PO (10:17)
--- NOTE | 2024-11-21 10:39 | PC.NURSE ---
Approximately 0830- PO lasix scanned and administered as scheduled in MAR. Upon saving medication admin, MAR displayed there had been changes made to medication orders. Lasix admin was not saved as medication was placed on hold by Dr. Fountain. Order to hold lasix has been placed but not yet seen or acknowledged by this RN. Dr. Fountain notified of medication administration. Plan is to change medication hold to 11/22/24 so MAR will accurately reflect administration.
[2024-11-21 11:41] LABS: Osmolality, Serum 267 mosm/kg (281-305)
[2024-11-21 11:42] LABS: Sodium 129 mmol/L (135-145)
[2024-11-21] MEDS: HYDROmorphone HCl 2 MG TABLET PO ×2 (11:46→18:14)
[2024-11-21 12:14] LABS: Sodium Urine Random < 20.0 mmol/L
[2024-11-21 12:18] LABS: Creatinine Urine 85.42 mg/dL
[2024-11-21 12:22] LABS: Cortisol Random 1.5 ug/dL
[2024-11-21 12:45] LABS: Osmolality Urine 377 mosm/kg (373-1093)
--- NOTE | 2024-11-21 14:14 | P.PNIM_ITS ---
Subjective Subjective Date of Service: 11/21/24 Interval History: feeling well, wants to try POs no shakiness; cut down on drinking EtOH months ago Review of Systems Review of Systems: Yes all other systems are reviewed and are negative Physical Exam 2 Vital Signs: Vital Signs: Last Vital Signs Temp 98.0 F 11/21/24 07:44 Pulse 74 11/21/24 07:44 Resp 16 11/21/24 07:44 BP 120/69 11/21/24 07:44 Pulse Ox 97 11/21/24 07:44 O2 Del Method Room Air 11/21/24 07:44 O2 Flow Rate 2 11/20/24 13:55 BMI result Body Mass Index 31.3 Gen: in no acute distress HEENT: sclera anicteric, moist mucus membranes Neck: supple Lungs: clear to auscultation bilaterally Heart: regular rate and rhythm, no murmurs Abd: soft, incisions clean, JENI with serosanguinous liquid Ext: no edema Skin: warm/well-perfused Neuro: alert and oriented x3, no focal findings Psych: appropriate affect Objective Data Active Medications Acetaminophen (Acetaminophen 325 Mg Tablet) 650 mg PO Q6H PRN PRN Reason: Pain, Mild 1-3,fever,headache Calcium Carbonate (Calcium Carbonate 750 Mg Tab.Chew) 750 mg PO Q4H PRN PRN Reason: Heartburn Carvedilol (Carvedilol 3.125 Mg Tablet) 3.125 mg PO BID [facility]; Protocol Last Admin: 11/21/24 08:42 Dose: 3.125 mg Documented By: NERIS Docusate Sodium (Docusate Sodium 100 Mg Capsule) 100 mg PO BID [facility] Last Admin: 11/21/24 08:43 Dose: 100 mg Documented By: NERIS Folic Acid (Folic Acid 1 Mg Tablet) 1 mg PO DAILY [facility] Last Admin: 11/21/24 08:42 Dose: 1 mg Documented By: NERIS Furosemide (Furosemide 20 Mg Tablet) 20 mg PO DAILY [facility]; Protocol Hydromorphone HCl (Hydromorphone Hcl 0.5 Mg/0.5 Ml Syringe) 0.5 mg IVPUSH Q3H PRN; Protocol PRN Reason: Pain, Severe (Pain Scale 7-10) Last Admin: 11/21/24 08:43 Dose: 0.5 mg Documented By: NERIS Hydromorphone HCl (Hydromorphone Hcl 2 Mg Tablet) 2 mg PO Q4H PRN PRN Reason: Pain, Moderate(Pain Scale 4-6) Last Admin: 11/21/24 11:46 Dose: 2 mg Documented By: NERIS Piperacillin Sod/Tazobactam (Sod 3.375 gm/ Sodium Chloride) 50 mls @ 100 mls/hr IV Q6H [facility] Last Infusion: 11/21/24 09:43 Dose: Infused Documented By: NERIS Lisinopril (Lisinopril 5 Mg Tablet) 5 mg PO DAILY [facility]; Protocol Last Admin: 11/21/24 08:42 Dose: 5 mg Documented By: NERIS Magnesium Hydroxide (Milk Of Magnesia 30 Ml Oral.Susp) 30 ml PO DAILY PRN PRN Reason: Constipation Multivitamins/Vitamin C (Multivitamin Tablet) 1 tab PO DAILY [facility] Last Admin: 11/21/24 08:43 Dose: 1 tab Documented By: NERIS Naloxone HCl (Naloxone Hcl 0.4 Mg/Ml Vial) 0.04 mg IVPUSH Q5M PRN PRN Reason: Excessive sedation or RR < 8 Ondansetron HCl (Ondansetron Hcl 4 Mg/2 Ml Vial) 4 mg IVPUSH QID PRN PRN Reason: Nausea Last Admin: 11/21/24 01:12 Dose: 4 mg Documented By: ALEISHA Quetiapine Fumarate (Quetiapine Fumarate 100 Mg Tablet) 100 mg PO BEDTIME [facility] Last Admin: 11/20/24 20:56 Dose: 100 mg Documented By: ALEISHA Sodium Chloride (0.9 % Sodium Chloride Flush 3 Ml Syringe) 3 ml IVFLUSH QSHIFT [facility] Last Admin: 11/21/24 05:29 Dose: Not Given Documented By: GALINDO Non-Admin Reason: IV Running Sodium Chloride (Sodium Chloride Tab 1 Gm Tablet) 1 gm PO DAILY [facility] Last Admin: 11/21/24 10:17 Dose: 1 gm Documented By: NERIS Spironolactone (Spironolactone 25 Mg Tablet) 25 mg PO DAILY [facility]; Protocol Last Admin: 11/21/24 08:42 Dose: 25 mg Documented By: NERIS Thiamine HCl (Thiamine Hcl 100 Mg Tablet) 100 mg PO DAILY [facility] Last Admin: 11/21/24 08:43 Dose: 100 mg Documented By: NERIS Zolpidem Tartrate (Zolpidem Tartrate 5 Mg Tablet) 5 mg PO BEDTIME PRN PRN Reason: Insomnia Last Admin: 11/20/24 20:56 Dose: 5 mg Documented By: ALEISHA Labs 11/21/24 05:41 11/21/24 11:14 Labs: Laboratory Results - last 24 hr 11/21/24 11/21/24 11/21/24 05:41 11:14 11:34 MCV 89.5 MCH 32.2 MCHC 35.9 RDW 12.3 Plt Count 256 MPV 9.8 Immature Gran % (Auto) 0.4 Neut % (Auto) 79.4 H Lymph % (Auto) 8.7 L Evangeline % (Auto) 11.2 H Eos % (Auto) 0.1 Baso % (Auto) 0.2 Lymph # (Auto) 0.8 L Evangeline # (Auto) 1.1 Eos # (Auto) 0.0 Baso # (Auto) 0.0 Abs Immat Gran (auto) 0.04 H Absolute Neuts (auto) 7.7 Absolute Nucleated RBC 0.000 Nucleated RBC % (auto) 0.0 Anion Gap 13 Estim Creat Clear Calc 75.5 Estimated GFR > 60 Random Glucose 103 Osmolality 267 L Calcium 8.6 D Total Bilirubin 1.1 H Direct Bilirubin 0.5 AST 36 ALT 27 Alkaline Phosphatase 53 Total Protein 6.4 L Albumin 3.6 TSH 0.90 Random Cortisol 1.5 Urine Osmolality 377 Ur Random Sodium < 20.0 Urine Creatinine 11/21/24 11:34 MCV MCH MCHC RDW Plt Count MPV Immature Gran % (Auto) Neut % (Auto) Lymph % (Auto) Evangeline % (Auto) Eos % (Auto) Baso % (Auto) Lymph # (Auto) Evangeline # (Auto) Eos # (Auto) Baso # (Auto) Abs Immat Gran (auto) Absolute Neuts (auto) Absolute Nucleated RBC Nucleated RBC % (auto) Anion Gap Estim Creat Clear Calc Estimated GFR Random Glucose Osmolality Calcium Total Bilirubin Direct Bilirubin AST ALT Alkaline Phosphatase Total Protein Albumin TSH Random Cortisol Urine Osmolality Ur Random Sodium Cancelled Urine Creatinine 85.42 Microbiology Microbiology Results: Microbiology 11/20/24 Unknown Gram Stain - Final Gallbladder Routine Culture - Preliminary No growth to date. Anaerobic Culture - Preliminary No growth to date. Assessment and Plan (1) Hyponatremia: Status: Acute Plan d2 for 64yo M on Gen Surg service for attemped lap/converted to open cholecystectomy; found to have purulent cholecystitis with markedly inflamed and contracted gallbladder wall. Medicine consult for hypoNa hypoNa - some component likely chronic [baseline around 130] but also probably some hypovolemic component given Herber low; giving NaCl tabs and holding furosemide; recheck BMP in AM - random cortisol 1.5; repeat in AM and if still low will pursue formal ACTH stim test gallbladder mass vs choleycystitis - culture and pathology pending; managed by surgery - 11/20- piperacillin-tazobactam AUD without active withdrawal - prn CIWA, Addiction Medicine, thiamine, folate hx cardiomyopathy/chronic HFrEF [TTE LVEF 40-45 % 11/17/24] - holding furosemide; continue carvedilol + lisinopril + spironolactone VTE ppx - SCDs In my clinical judgment, the patient requires continued inpatient hospitalization for the following reasons: postop care, IV ABX, hypoNa Total time managing care of this patient today: 35 minutes. Quality Stroke Does the patient have a stroke diagnosis?: No VTE Prior VTE?: No VTE Risk Level:: Surgical - moderate VTE Device Contraindication: N/A - Device Ordered VTE Drug Contraindication: Treatment Not Indicated
--- NOTE | 2024-11-21 14:36 | HO.POSTANES ---
Post Anesthesia Evaluation Post Anesthesia Evaluation Date of Service: 11/21/24 Vital Signs: Vital Signs Temp Pulse Resp BP Pulse Ox O2 Del Method 11/21/24 07:44 98.0 F 74 16 120/69 97 Room Air 11/21/24 02:58 98.0 F 75 16 135/67 98 Room Air Anesthesia: General Endotracheal-GETA Mental Status: Awake Pain Control: Satisfactory Nausea/Vomiting: None Hydration: Adequate Anesthesia-Related Issues: No Anes. Related Issues
[2024-11-21 15:04] VITALS: BP 126/52; PULSE 71; RESP 18; TEMP 36.5; O2SAT 97
--- NOTE | 2024-11-21 15:46 | MHC.CM.PN ---
pt lives alone is independent has a ride home dcplan home no/s
[2024-11-21] MEDS: Benzonatate 100 MG CAPSULE 200 MG PO (16:38)
--- NOTE | 2024-11-21 19:07 | PM.CNNEP ---
History of Present Illness Reason for Consult Consult date: 11/21/24 Reason for consult: Hyponatremia Chief Complaint Chief complaint: ACUTE CHOLECYSTITIS History of Present Illness Narrative: 64-year-old male seen by Dr. Hensley yesterday for medical management consult ordered by surgery. Patient is status post cholecystectomy for gallbladder mass. Pathology is currently pending. Patient is now tolerating oral intake and is having mild abdominal pain secondary to surgical intervention. Patient does have history of alcohol abuse and is not currently going through withdrawal symptoms. Patient's sodium today was noted to be 127. Patient has history of low sodium levels back in August of 2024. This could be secondary to his chronic alcohol use. Patient also has known cardiomyopathy with heart failure and reduced EF of 40-45% via echo that was done November 17 prior to his surgery. Patient is normally on ARTI inhibitor lisinopril 5 mg daily, Lasix daily Coreg twice daily and spironolactone. Patient was given 1 g of sodium chloride orally and repeat sodium is now 129. Patient's mental status is intact. Nephrology has been requested to consult on this patient as well. h/o Chr hyponatremia Drinks 5-6 cans beer [facility] Past Medical History Medical History (Updated 11/21/24 @ 12:26 by ABDULKADIR Matta-PK) Arthritis Numbness Pneumonia Non-ischemic cardiomyopathy Vasovagal syncope SOB (shortness of breath) Shoulder separation Recurrent genital herpes simplex Psoriasis Peyronie disease Obese MSSA bacteremia Cirrhosis Insomnia Hiatal hernia Erectile dysfunction Dupuytrens contracture Depression CKD (chronic kidney disease) stage 3, GFR 30-59 ml/min Chronic systolic congestive heart failure Anemia Alcohol abuse Adenomatous polyposis coli Abnormal liver function tests Shoulder fracture, left Valvular heart disease Sleep apnea Appendicitis Surgical History Surgical History History of esophagogastroduodenoscopy (EGD) Hx of cardiac catheterization Hx of tooth extraction Hx of shoulder surgery H/O colonoscopy History of umbilical hernia repair (09/22/22) History of laparoscopic appendectomy (09/22/22) H/O oral surgery Social History Social History Household Members: None Housing: House Are you a primary assurance services manager health care to a significant other at home: No Do you presently have visiting nurse or other home services: No Patient Tobacco Use Status: Never used Tobacco Second Hand Smoke Exposure: No Substance Use Type: Crack/Cocaine service: No Travel History Ebola Risk: Travel/Contact With Anyone From Affected Area/s: No Has Patient Experienced Ebola Symptoms: No Meds Allergies Allergy/AdvReac Type Severity Reaction Status Date / Time No Known Allergies Allergy Verified 11/20/24 08:24 [No Known Allergies*] Active Medications: Current Medications Acetaminophen (Acetaminophen 325 Mg Tablet) 650 mg PO Q6H PRN PRN Reason: Pain, Mild 1-3,fever,headache Benzonatate (Benzonatate 100 Mg Capsule) 200 mg PO TID PRN PRN Reason: Cough Last Admin: 11/21/24 16:38 Dose: 200 mg Calcium Carbonate (Calcium Carbonate 750 Mg Tab.Chew) 750 mg PO Q4H PRN PRN Reason: Heartburn Carvedilol (Carvedilol 3.125 Mg Tablet) 3.125 mg PO BID [facility]; Protocol Last Admin: 11/21/24 08:42 Dose: 3.125 mg Docusate Sodium (Docusate Sodium 100 Mg Capsule) 100 mg PO BID [facility] Last Admin: 11/21/24 08:43 Dose: 100 mg Folic Acid (Folic Acid 1 Mg Tablet) 1 mg PO DAILY [facility] Last Admin: 11/21/24 08:42 Dose: 1 mg Furosemide (Furosemide 20 Mg Tablet) 20 mg PO DAILY [facility]; Protocol Last Admin: 11/21/24 08:34 Dose: 20 mg Hydromorphone HCl (Hydromorphone Hcl 0.5 Mg/0.5 Ml Syringe) 0.5 mg IVPUSH Q3H PRN; Protocol PRN Reason: Pain, Severe (Pain Scale 7-10) Last Admin: 11/21/24 15:20 Dose: 0.5 mg Hydromorphone HCl (Hydromorphone Hcl 2 Mg Tablet) 2 mg PO Q4H PRN PRN Reason: Pain, Moderate(Pain Scale 4-6) Last Admin: 11/21/24 18:14 Dose: 2 mg Piperacillin Sod/Tazobactam (Sod 3.375 gm/ Sodium Chloride) 50 mls @ 100 mls/hr IV Q6H [facility] Last Infusion: 11/21/24 16:05 Dose: Infused Lisinopril (Lisinopril 5 Mg Tablet) 5 mg PO DAILY [facility]; Protocol Last Admin: 11/21/24 08:42 Dose: 5 mg Magnesium Hydroxide (Milk Of Magnesia 30 Ml Oral.Susp) 30 ml PO DAILY PRN PRN Reason: Constipation Multivitamins/Vitamin C (Multivitamin Tablet) 1 tab PO DAILY [facility] Last Admin: 11/21/24 08:43 Dose: 1 tab Naloxone HCl (Naloxone Hcl 0.4 Mg/Ml Vial) 0.04 mg IVPUSH Q5M PRN PRN Reason: Excessive sedation or RR < 8 Ondansetron HCl (Ondansetron Hcl 4 Mg/2 Ml Vial) 4 mg IVPUSH QID PRN PRN Reason: Nausea Last Admin: 11/21/24 01:12 Dose: 4 mg Quetiapine Fumarate (Quetiapine Fumarate 100 Mg Tablet) 100 mg PO BEDTIME [facility] Last Admin: 11/20/24 20:56 Dose: 100 mg Sodium Chloride (0.9 % Sodium Chloride Flush 3 Ml Syringe) 3 ml IVFLUSH QSHIFT [facility] Last Admin: 11/21/24 16:05 Dose: Not Given Sodium Chloride (Sodium Chloride Tab 1 Gm Tablet) 1 gm PO DAILY [facility] Last Admin: 11/21/24 10:17 Dose: 1 gm Spironolactone (Spironolactone 25 Mg Tablet) 25 mg PO DAILY [facility]; Protocol Last Admin: 11/21/24 08:42 Dose: 25 mg Thiamine HCl (Thiamine Hcl 100 Mg Tablet) 100 mg PO DAILY [facility] Last Admin: 11/21/24 08:43 Dose: 100 mg Zolpidem Tartrate (Zolpidem Tartrate 5 Mg Tablet) 5 mg PO BEDTIME PRN PRN Reason: Insomnia Last Admin: 11/20/24 20:56 Dose: 5 mg Home Medications ?Medication ?Instructions ?Recorded ?Confirmed ?Last Taken ?Type carvedilol 3.125 mg tablet 1 tab PO BID 09/21/22 11/14/24 11/20/24 07:15 History folic acid 800 mcg tablet 0.8 mg PO DAILY 09/21/22 11/14/24 09/21/22 History furosemide 20 mg tablet 1 tab PO DAILY 09/21/22 11/14/24 09/21/22 History [id number]-[id number]-[id number] tablet 1 tab PO DAILY 09/21/22 11/14/24 09/21/22 History quetiapine 100 mg tablet 1 tab PO BEDTIME 09/21/22 11/14/24 09/20/22 History spironolactone 25 mg tablet 1 tab PO DAILY 09/21/22 11/14/24 09/21/22 History thiamine HCl (vitamin B1) 100 mg 100 mg PO DAILY 09/21/22 11/14/24 09/21/22 History tablet aspirin 325 mg tablet 162.5 mg PO DAILY 11/14/24 11/14/24 11/14/24 History lisinopril 5 mg tablet 5 mg PO DAILY 11/14/24 11/14/24 Unknown History Physical Exam Vital Signs: Last Vital Signs Temp 97.7 F 11/21/24 15:04 Pulse 71 11/21/24 15:04 Resp 18 11/21/24 15:04 BP 126/52 L 11/21/24 15:04 Pulse Ox 97 11/21/24 15:04 O2 Del Method Room Air 11/21/24 15:04 O2 Flow Rate 2 11/20/24 13:55 BMI result Body Mass Index 31.3 Awake. Comfortable. Neck is supple. Mucosa moist. Lungs bilateral scattered rhonchi. Heart S1-S2 heard no gallop. Abdomen soft. s/p surgery Extremities no edema. No involuntary movements. No myoclonus. Results Lab Results 11/21/24 05:41 11/21/24 11:14 Lab results: Chemistry 11/21/24 11/21/24 05:41 11:14 Sodium 127 L 129 L Potassium 4.3 Carbon Dioxide 20 L BUN 16 Creatinine 1.08 Calcium 8.6 D Hematology 11/21/24 05:41 WBC 9.7 Hgb 10.1 L Plt Count 256 Urine Studies 11/21/24 11:34 Urine Osmolality 377 Urine Creatinine 85.42 Assessment and Plan (1) Hyponatremia: Status: Acute Plan Chronic asymptomatic hyponatremia Most likley due to decreased free water clearance in a setting of excessive beer intake Low urine sodium suggestive of hypoperfusion Resolving ABEL Suggest IV Hydration with NS x 2 L Keep I >O Restrict hypotonic fluids- free water Goal pNa > 130 Shall follow Procedures Date of Service Date of Service: 11/21/24
[2024-11-21 19:33] VITALS: BP 136/63; PULSE 55; RESP 18; TEMP 36.8; O2SAT 94
[2024-11-21] MEDS: Zolpidem Tartrate 5 MG TABLET PO (21:31)
[2024-11-21] MEDS: QUEtiapine Fumarate 100 MG TABLET PO (21:31)
[2024-11-22] MEDS: ondansetron HCL 4 MG/2 ML VIAL IVPUSH ×3 (01:03→20:10)
[2024-11-22] MEDS: 0.9 % Sodium Chloride Flush 3 ML SYRINGE IVFLUSH (01:04)
[2024-11-22 03:18] VITALS: BP 132/60; PULSE 62; RESP 18; TEMP 36.3; O2SAT 95
[2024-11-22] MEDS: Piperacillin Sodium/Tazobactam 3.375 GM in 0.9 % Sodium Chloride 50 ML IV ×4 (03:42→20:10)
[2024-11-22 06:58] LABS: Anion Gap 16 (12-20); Blood Urea Nitrogen 16 mg/dL (9-16); Calcium 9.2 mg/dL (8.4-10.2); Carbon Dioxide 24 mmol/L (22-29); Chloride 93 mmol/L (96-108); Creatinine Clr Calc Pharmacy 65.3; Estimated Glomerular Filt Rate 58; Glucose Random 113 mg/dL (60-115); Potassium 3.8 mmol/L (3.3-5.1); Sodium 129 mmol/L (135-145)
[2024-11-22 07:17] LABS: Cortisol Random 26.1 ug/dL
[2024-11-22 07:27] VITALS: BP 106/67; PULSE 107; RESP 18; TEMP 36.9; O2SAT 96
[2024-11-22] MEDS: 0.9 % Sodium Chloride 1,000 ML 50 ML IVCONT (08:25)
[2024-11-22] MEDS: Spironolactone 25 MG TABLET PO (08:28)
[2024-11-22] MEDS: Docusate Sodium 100 MG CAPSULE PO (08:28)
[2024-11-22] MEDS: lisinopriL 5 MG TABLET PO (08:28)
[2024-11-22] MEDS: carvediloL 3.125 MG TABLET PO ×2 (08:28→20:59)
[2024-11-22] MEDS: HYDROmorphone HCl 2 MG TABLET PO (08:28)
--- NOTE | 2024-11-22 08:37 | P.PNGS_ITS ---
Subjective Subjective Date of Service: 11/22/24 Interval history: Feels horrible today. Vomited large amount of liquid this morning. Feels very bloated. Denies any flatus. Physical Exam 2 Vital Signs: Vital Signs: Last Vital Signs Temp 98.5 F 11/22/24 07:27 Pulse 107 H 11/22/24 07:27 Resp 18 11/22/24 07:27 BP 106/67 11/22/24 07:27 Pulse Ox 96 11/22/24 07:27 O2 Del Method Room Air 11/22/24 07:27 O2 Flow Rate 2 11/20/24 13:55 BMI result Body Mass Index 31.3 Const: General: no acute distress and alert Orientation/consciousness: p atient oriented x3 Resp: Effort & Inspection: normal respiratory effort GI: Other: abd distended and tympanitic incisions clean JENI drain scant serosanguineous output Palpation (GI): Soft to palpation and no guarding Skin: General skin exam: no rashes or lesions noted Neuro: General: patient oriented x3 and moves all extremities Objective Data Active Medications Acetaminophen (Acetaminophen 325 Mg Tablet) 650 mg PO Q6H PRN PRN Reason: Pain, Mild 1-3,fever,headache Benzonatate (Benzonatate 100 Mg Capsule) 200 mg PO TID PRN PRN Reason: Cough Last Admin: 11/21/24 16:38 Dose: 200 mg Documented By: NERIS Calcium Carbonate (Calcium Carbonate 750 Mg Tab.Chew) 750 mg PO Q4H PRN PRN Reason: Heartburn Carvedilol (Carvedilol 3.125 Mg Tablet) 3.125 mg PO BID [facility]; Protocol Last Admin: 11/22/24 08:28 Dose: 3.125 mg Documented By: JACLYN Docusate Sodium (Docusate Sodium 100 Mg Capsule) 100 mg PO BID [facility] Last Admin: 11/22/24 08:28 Dose: 100 mg Documented By: JACLYN Folic Acid (Folic Acid 1 Mg Tablet) 1 mg PO DAILY [facility] Last Admin: 11/22/24 08:30 Dose: Not Given Documented By: JACLYN Non-Admin Reason: Nausea Furosemide (Furosemide 20 Mg Tablet) 20 mg PO DAILY [facility]; Protocol Last Admin: 11/21/24 08:34 Dose: 20 mg Documented By: NERIS Comments: See nurse's note. Hydromorphone HCl (Hydromorphone Hcl 0.5 Mg/0.5 Ml Syringe) 0.5 mg IVPUSH Q3H PRN; Protocol PRN Reason: Pain, Severe (Pain Scale 7-10) Last Admin: 11/21/24 21:32 Dose: 0.5 mg Documented By: HERMILO Hydromorphone HCl (Hydromorphone Hcl 2 Mg Tablet) 2 mg PO Q4H PRN PRN Reason: Pain, Moderate(Pain Scale 4-6) Last Admin: 11/22/24 08:28 Dose: 2 mg Documented By: JACLYN Piperacillin Sod/Tazobactam (Sod 3.375 gm/ Sodium Chloride) 50 mls @ 100 mls/hr IV Q6H [facility] Last Admin: 11/22/24 08:27 Dose: 100 mls/hr Documented By: JACLYN Sodium Chloride (Ns) 1,000 mls @ 50 mls/hr IVCONT .Q20H [facility] Last Admin: 11/22/24 08:25 Dose: 50 mls/hr Documented By: JACLYN Lisinopril (Lisinopril 5 Mg Tablet) 5 mg PO DAILY [facility]; Protocol Last Admin: 11/22/24 08:28 Dose: 5 mg Documented By: JACLYN Magnesium Hydroxide (Milk Of Magnesia 30 Ml Oral.Susp) 30 ml PO DAILY PRN PRN Reason: Constipation Multivitamins/Vitamin C (Multivitamin Tablet) 1 tab PO DAILY [facility] Last Admin: 11/22/24 08:30 Dose: Not Given Documented By: JACLYN Non-Admin Reason: Nausea Naloxone HCl (Naloxone Hcl 0.4 Mg/Ml Vial) 0.04 mg IVPUSH Q5M PRN PRN Reason: Excessive sedation or RR < 8 Ondansetron HCl (Ondansetron Hcl 4 Mg/2 Ml Vial) 4 mg IVPUSH QID PRN PRN Reason: Nausea Last Admin: 11/22/24 01:03 Dose: 4 mg Documented By: HERMILO Comments: OK BY DR VERNON TO GIVE EARLY Quetiapine Fumarate (Quetiapine Fumarate 100 Mg Tablet) 100 mg PO BEDTIME [facility] Last Admin: 11/21/24 21:31 Dose: 100 mg Documented By: HERMILO Sodium Chloride (0.9 % Sodium Chloride Flush 3 Ml Syringe) 3 ml IVFLUSH QSHIFT [facility] Last Admin: 11/22/24 08:28 Dose: Not Given Documented By: JACLYN Non-Admin Reason: IV Running Spironolactone (Spironolactone 25 Mg Tablet) 25 mg PO DAILY [facility]; Protocol Last Admin: 11/22/24 08:28 Dose: 25 mg Documented By: JACLYN Thiamine HCl (Thiamine Hcl 100 Mg Tablet) 100 mg PO DAILY [facility] Last Admin: 11/22/24 08:30 Dose: Not Given Documented By: JACLYN Non-Admin Reason: Nausea Zolpidem Tartrate (Zolpidem Tartrate 5 Mg Tablet) 5 mg PO BEDTIME PRN PRN Reason: Insomnia Last Admin: 11/21/24 21:31 Dose: 5 mg Documented By: HERMILO Labs 11/21/24 05:41 11/22/24 05:35 Labs: Laboratory Results - last 24 hr 11/21/24 11/21/24 11/21/24 05:41 11:14 11:34 Anion Gap Estim Creat Clear Calc Estimated GFR Random Glucose Osmolality 267 L Calcium TSH 0.90 Random Cortisol 1.5 Urine Osmolality 377 Ur Random Sodium < 20.0 Urine Creatinine 11/21/24 11/22/24 11:34 05:35 Anion Gap 16 Estim Creat Clear Calc 65.3 Estimated GFR 58 Random Glucose 113 Osmolality Calcium 9.2 D TSH Random Cortisol 26.1 Urine Osmolality Ur Random Sodium Cancelled Urine Creatinine 85.42 Microbiology Microbiology Results: Microbiology 11/20/24 Unknown Gram Stain - Final Gallbladder Routine Culture - Preliminary No growth to date. Anaerobic Culture - Preliminary No growth to date. Procedures Date of Service Date of Service: 11/22/24 Progress Note: A&P Assessment and plan (1) S/P cholecystectomy: Status: Acute (2) Hyponatremia: Status: Acute (3) Mass of gallbladder: Status: Acute Plan POD #2 s/p lap attempted converted to open cholecystectomy. Now with vomiting, abd distention, no evidence of GI function. VSS. Abd is soft with appropriate post op tenderness, clean incisions. JENI Drain with scant serosanguineous output. Delayed return of GI function likely multifactorial secondary to surgery, electrolyte abnormalities, narcotics. Discussed if he continues to vomit, NGT insertion may be needed. Recommended sips as tolerated for now. Increase IVF. Increase ambulation. Hospitalists, nephrology following. Time Spent With Patient Time: Total time managing care of this patient today ____ minutes. Quality Stroke Does the patient have a stroke diagnosis?: No VTE Prior VTE?: No VTE Risk Level:: Surgical - moderate VTE Device Contraindication: N/A - Device Ordered VTE Drug Contraindication: Treatment Not Indicated
--- NOTE | 2024-11-22 09:56 | HO.PM.IMPN ---
Subjective Subjective Date of Service: 11/22/24 Interval History: vomiting abd distended, painful not passing gas Review of Systems Review of Systems: Yes all other systems are reviewed and are negative Physical Exam Vital Signs: Vital Signs: Last Vital Signs Temp 98.5 F 11/22/24 07:27 Pulse 107 H 11/22/24 07:27 Resp 18 11/22/24 07:27 BP 106/67 11/22/24 07:27 Pulse Ox 96 11/22/24 07:27 O2 Del Method Room Air 11/22/24 07:27 O2 Flow Rate 2 11/20/24 13:55 BMI result Body Mass Index 31.3 Gen: in no acute distress HEENT: sclera anicteric, moist mucus membranes Neck: supple Lungs: clear to auscultation bilaterally Heart: regular, tachycardic, no murmurs Abd: distended, no bowel sounds, incisions clean, JENI with serosanguinous liquid Ext: no edema Skin: warm/well-perfused Neuro: alert and oriented x3, no focal findings Psych: appropriate affect Objective Data Active Medications Acetaminophen (Acetaminophen 325 Mg Tablet) 650 mg PO Q6H PRN PRN Reason: Pain, Mild 1-3,fever,headache Benzonatate (Benzonatate 100 Mg Capsule) 200 mg PO TID PRN PRN Reason: Cough Last Admin: 11/21/24 16:38 Dose: 200 mg Documented By: NERIS Calcium Carbonate (Calcium Carbonate 750 Mg Tab.Chew) 750 mg PO Q4H PRN PRN Reason: Heartburn Carvedilol (Carvedilol 3.125 Mg Tablet) 3.125 mg PO BID [facility]; Protocol Last Admin: 11/22/24 08:28 Dose: 3.125 mg Documented By: JACLYN Docusate Sodium (Docusate Sodium 100 Mg Capsule) 100 mg PO BID [facility] Last Admin: 11/22/24 08:28 Dose: 100 mg Documented By: JACLYN Folic Acid (Folic Acid 1 Mg Tablet) 1 mg PO DAILY [facility] Last Admin: 11/22/24 08:30 Dose: Not Given Documented By: JACLYN Non-Admin Reason: Nausea Furosemide (Furosemide 20 Mg Tablet) 20 mg PO DAILY [facility]; Protocol Last Admin: 11/21/24 08:34 Dose: 20 mg Documented By: NERIS Comments: See nurse's note. Hydromorphone HCl (Hydromorphone Hcl 0.5 Mg/0.5 Ml Syringe) 0.5 mg IVPUSH Q3H PRN; Protocol PRN Reason: Pain, Severe (Pain Scale 7-10) Last Admin: 11/21/24 21:32 Dose: 0.5 mg Documented By: HERMILO Hydromorphone HCl (Hydromorphone Hcl 2 Mg Tablet) 2 mg PO Q4H PRN PRN Reason: Pain, Moderate(Pain Scale 4-6) Last Admin: 11/22/24 08:28 Dose: 2 mg Documented By: JACLYN Piperacillin Sod/Tazobactam (Sod 3.375 gm/ Sodium Chloride) 50 mls @ 100 mls/hr IV Q6H [facility] Last Infusion: 11/22/24 09:41 Dose: Infused Documented By: JACLYN Sodium Chloride (Ns) 1,000 mls @ 80 mls/hr IVCONT .[id number] [facility] Last Admin: 11/22/24 08:25 Dose: 50 mls/hr Documented By: JACLYN Lisinopril (Lisinopril 5 Mg Tablet) 5 mg PO DAILY [facility]; Protocol Last Admin: 11/22/24 08:28 Dose: 5 mg Documented By: JACLYN Magnesium Hydroxide (Milk Of Magnesia 30 Ml Oral.Susp) 30 ml PO DAILY PRN PRN Reason: Constipation Multivitamins/Vitamin C (Multivitamin Tablet) 1 tab PO DAILY [facility] Last Admin: 11/22/24 08:30 Dose: Not Given Documented By: JACLYN Non-Admin Reason: Nausea Naloxone HCl (Naloxone Hcl 0.4 Mg/Ml Vial) 0.04 mg IVPUSH Q5M PRN PRN Reason: Excessive sedation or RR < 8 Ondansetron HCl (Ondansetron Hcl 4 Mg/2 Ml Vial) 4 mg IVPUSH QID PRN PRN Reason: Nausea Last Admin: 11/22/24 01:03 Dose: 4 mg Documented By: HERMILO Comments: OK BY DR VERNON TO GIVE EARLY Quetiapine Fumarate (Quetiapine Fumarate 100 Mg Tablet) 100 mg PO BEDTIME [facility] Last Admin: 11/21/24 21:31 Dose: 100 mg Documented By: HERMILO Sodium Chloride (0.9 % Sodium Chloride Flush 3 Ml Syringe) 3 ml IVFLUSH QSHIFT [facility] Last Admin: 11/22/24 08:28 Dose: Not Given Documented By: JACLYN Non-Admin Reason: IV Running Spironolactone (Spironolactone 25 Mg Tablet) 25 mg PO DAILY [facility]; Protocol Last Admin: 11/22/24 08:28 Dose: 25 mg Documented By: JACLYN Thiamine HCl (Thiamine Hcl 100 Mg Tablet) 100 mg PO DAILY [facility] Last Admin: 11/22/24 08:30 Dose: Not Given Documented By: JACLYN Non-Admin Reason: Nausea Zolpidem Tartrate (Zolpidem Tartrate 5 Mg Tablet) 5 mg PO BEDTIME PRN PRN Reason: Insomnia Last Admin: 11/21/24 21:31 Dose: 5 mg Documented By: HERMILO Labs 11/21/24 05:41 11/22/24 05:35 Labs: Laboratory Results - last 24 hr 11/21/24 11/21/24 11/21/24 11:14 11:34 11:34 Anion Gap Estim Creat Clear Calc Estimated GFR Random Glucose Osmolality 267 L Calcium Random Cortisol 1.5 Urine Osmolality 377 Ur Random Sodium < 20.0 Cancelled Urine Creatinine 85.42 11/22/24 05:35 Anion Gap 16 Estim Creat Clear Calc 65.3 Estimated GFR 58 Random Glucose 113 Osmolality Calcium 9.2 D Random Cortisol 26.1 Urine Osmolality Ur Random Sodium Urine Creatinine Microbiology Microbiology Results: Microbiology 11/20/24 Unknown Gram Stain - Final Gallbladder Routine Culture - Final No growth after 2 days Anaerobic Culture - Preliminary No growth to date. Assessment and Plan (1) Hyponatremia: Status: Acute Plan d3 for 64yo M on Gen Surg service for attemped lap/converted to open cholecystectomy; found to have purulent cholecystitis with markedly inflamed and contracted gallbladder wall. Medicine consult for hypoNa hypoNa - some component likely chronic [baseline around 130] but also probably some hypovolemic component given Herber low and worsening SCr and vomiting; will give 1L NS and recheck BMP in AM - 1st random cortisol low; repeat normal; will recheck in AM gallbladder mass vs cholecystitis post op ileus - culture and pathology pending; managed by surgery - 11/20- piperacillin-tazobactam - NPO for now; fluids as above AUD without active withdrawal - prn CIWA, Addiction Medicine, thiamine, folate hx cardiomyopathy/chronic HFrEF [TTE LVEF 40-45 % 11/17/24] - holding furosemide; continue carvedilol + lisinopril + spironolactone VTE ppx - SCDs In my clinical judgment, the patient requires continued inpatient hospitalization for the following reasons: postop care, IV ABX, hypoNa Total time managing care of this patient today: 40 minutes. Quality Stroke Does the patient have a stroke diagnosis?: No VTE Prior VTE?: No VTE Risk Level:: Surgical - moderate VTE Device Contraindication: N/A - Device Ordered VTE Drug Contraindication: Treatment Not Indicated
[2024-11-22] MEDS: HYDROmorphone HCl 0.5 MG/0.5 ML SYRINGE IVPUSH (10:31)
--- NOTE | 2024-11-22 10:52 | MHC.CM.PN ---
PATIENT NOT MEDICALLY CLEARED FOR DC AT THIS TIME. CM WILL CONTINUE TO FOLLOW.
[2024-11-22] MEDS: Metoclopramide HCl 10 MG/2 ML VIAL IVPUSH (14:10)
[2024-11-22] MEDS: Benzonatate 100 MG CAPSULE 200 MG PO (15:20)
[2024-11-22 15:21] VITALS: BP 126/58; PULSE 104; RESP 17; TEMP 36.9; O2SAT 96
[2024-11-22] MEDS: Acetaminophen 1,000 MG/100 ML PIGGYBACK 400 MG IV ×2 (17:26→22:45)
--- NOTE | 2024-11-22 18:20 | PC.NURSE ---
1600- patient vomited approximately 500mL of bile colored emesis into basin. Dr. Candice Atkins and TANVI Garcia notified. Order placed to insert NGT. Patient educated on the purpose of the NGT and the procedure of insertion. Patient verbalized understanding and consented to NGT placement. 1630- NGT inserted with secondary RN Marilyn Vogel at bedside assisting. NGT placed into right nare with immediate green liquid output. Patient tolerated insertion well, but poorly tolerated having the tube in place. Patient began gagging and vomiting further green liquid and yelled to remove the tube. NGT education reinforced with patient again verbalizing understanding. This RN confirmed if patient wanted the NGT removed. Patient reported yes. NGT removed. Device intact. TANVI Garcia notified.
--- NOTE | 2024-11-22 18:48 | P.PNNP_ITS ---
Subjective Subjective Date of Service: 11/22/24 Interval history: Events noted. All recent data reviewed Physical Exam 2 Vital Signs: Vital Signs: Last Vital Signs Temp 98.4 F 11/22/24 15:21 Pulse 104 H 11/22/24 15:21 Resp 17 11/22/24 15:21 BP 126/58 L 11/22/24 15:21 Pulse Ox 96 11/22/24 15:21 O2 Del Method Room Air 11/22/24 15:21 O2 Flow Rate 2 11/20/24 13:55 BMI result Body Mass Index 31.3 Const: General: no acute distress Eyes: EOM: EOMs intact bilaterally Neck: Neck: Yes supple Resp: Auscultation: diminished lung sounds Cardio: Rate: tachycardic GI: Palpation (GI): Soft to palpation Neuro: General: moves all extremities Objective Data Labs 11/21/24 05:41 11/22/24 05:35 Labs: Laboratory Results - last 24 hr 11/22/24 05:35 Sodium 129 L Potassium 3.8 Chloride 93 L Carbon Dioxide 24 Anion Gap 16 BUN 16 Creatinine 1.25 Estim Creat Clear Calc 65.3 Estimated GFR 58 Random Glucose 113 Calcium 9.2 D Random Cortisol 26.1 Microbiology Microbiology Results: Microbiology 11/20/24 Unknown Gallbladder Gram Stain - Final 11/20/24 Unknown Gallbladder Routine Culture - Final No growth after 2 days 11/20/24 Unknown Gallbladder Anaerobic Culture - Preliminary No growth to date. Procedures Date of Service Date of Service: 11/22/24 Assessment & Plan Assessment and plan (1) ABEL (acute kidney injury): Status: Acute Plan ABEL due to compromise in renal perfusion with resultant tubular injury Diuretics/ACEI on hold. UO good. No reason to suspect GN/AIN Serum creatinine not plateaued; C/W rest of current supportive care for now Labs AM. Shall closely follow up Progress Note: Quality Stroke Does the patient have a stroke diagnosis?: No
[2024-11-22 19:20] VITALS: BP 102/65; PULSE 86; RESP 20; TEMP 36.6; O2SAT 94
[2024-11-22] MEDS: Famotidine/PF 20 MG/2 ML VIAL IVPUSH (20:10)
[2024-11-22] MEDS: 0.9 % Sodium Chloride 1,000 ML 100 ML IVCONT (20:52)
[2024-11-22 20:57] VITALS: BP 132/70; PULSE 96
[2024-11-22] MEDS: QUEtiapine Fumarate 100 MG TABLET PO (20:59)
[2024-11-23 02:46] VITALS: BP 105/56; PULSE 88; RESP 18; TEMP 36.3; O2SAT 95
[2024-11-23] MEDS: 0.9 % Sodium Chloride Flush 3 ML SYRINGE IVFLUSH ×4 (02:47→20:32)
[2024-11-23] MEDS: Piperacillin Sodium/Tazobactam 3.375 GM in 0.9 % Sodium Chloride 50 ML IV ×4 (02:51→20:33)
[2024-11-23] MEDS: Acetaminophen 1,000 MG/100 ML PIGGYBACK 400 MG IV ×4 (04:29→22:49)
--- NOTE | 2024-11-23 06:53 | PC.NURSE ---
Assumed care of this patient at 23:45. Please see shift assessment, tasks, and MAR for full details. Handoff report given at 06:45.
--- NOTE | 2024-11-23 06:59 | P.PNGS_ITS ---
Subjective Subjective Date of Service: 11/23/24 <Issac Farmer - Last Filed: 11/23/24 07:06> 11/23/24 <Michelle Garcia PA-C - Last Filed: 11/23/24 07:23> 11/23/24 <James Atkins MD - Last Filed: 11/23/24 08:04> Interval history: Pt had episode of emesis last night. Otherwise, he is awake, sitting in chair and feels well. He has no acute complaints. Since yesterday, he has started passing flatus. He has had no bowel movements. Denies shortness of breath, chest pain, abdominal pain, weakness. <Issac Darian - Last Filed: 11/23/24 07:06> Physical Exam 2 Vital Signs: Vital Signs: Last Vital Signs Temp 97.4 F 11/23/24 02:46 Pulse 88 11/23/24 02:46 Resp 18 11/23/24 02:46 BP 105/56 L 11/23/24 02:46 Pulse Ox 95 11/23/24 02:46 O2 Del Method Room Air 11/23/24 02:46 O2 Flow Rate 2 11/20/24 13:55 BMI result Body Mass Index 31.3 <[facility] - Last Filed: 11/23/24 07:06> Const: General: comfortable, no acute distress and awake <[facility] - Last Filed: 11/23/24 07:06> Orientation/consciousness: patient oriented x3 <[facility] - Last Filed: 11/23/24 07:06> Eyes: Other: EOMI anicteric sclera <[facility] - Last Filed: 11/23/24 07:06> Resp: Other: CTAB speaking in full sentences <[facility] - Last Filed: 11/23/24 07:06> GI: Other: Incisions healing well JENI draining serosanguinous fluid distended <Issac Darian - Last Filed: 11/23/24 07:06> Other: Incisions healing well, salom[place] intact, clean JENI draining serosanguinous fluid significantly distended <Michelle Garcia PA-C - Last Filed: 11/23/24 07:23> Skin: General skin exam: no rashes or lesions noted and no jaundice < Michelle Garcia PA-C - Last Filed: 11/23/24 07:23> Neuro: General: patient oriented x3 and moves all extremities <Issac Farmer - Last Filed: 11/23/24 07:06> Extrem: Other: no extremity edema <Issac Farmer - Last Filed: 11/23/24 07:06> Objective Data Active Medications Benzonatate (Benzonatate 100 Mg Capsule) 200 mg PO TID PRN PRN Reason: Cough Last Admin: 11/22/24 15:20 Dose: 200 mg Documented By: NERIS Calcium Carbonate (Calcium Carbonate 750 Mg Tab.Chew) 750 mg PO Q4H PRN PRN Reason: Heartburn Carvedilol (Carvedilol 3.125 Mg Tablet) 3.125 mg PO BID [facility]; Protocol Last Admin: 11/22/24 20:59 Dose: 3.125 mg Documented By: NERIS Famotidine (Famotidine/Pf 20 Mg/2 Ml Vial) 20 mg IVPUSH BID [facility] Last Admin: 11/22/24 20:10 Dose: 20 mg Documented By: NERIS Folic Acid (Folic Acid 1 Mg Tablet) 1 mg PO DAILY [facility] Last Admin: 11/22/24 08:30 Dose: Not Given Documented By: JACLYN Non-Admin Reason: Nausea Furosemide (Furosemide 20 Mg Tablet) 20 mg PO DAILY [facility]; Protocol Last Admin: 11/21/24 08:34 Dose: 20 mg Documented By: NERIS Comments: See nurse's note. Hydromorphone HCl (Hydromorphone Hcl 0.5 Mg/0.5 Ml Syringe) 0.5 mg IVPUSH Q3H PRN; Protocol PRN Reason: Pain, Severe (Pain Scale 7-10) Last Admin: 11/22/24 10:31 Dose: 0.5 mg Documented By: JACLYN Hydromorphone HCl (Hydromorphone Hcl 2 Mg Tablet) 2 mg PO Q4H PRN PRN Reason: Pain, Moderate(Pain Scale 4-6) Last Admin: 11/22/24 08:28 Dose: 2 mg Documented By: JACLYN Piperacillin Sod/Tazobactam (Sod 3.375 gm/ Sodium Chloride) 50 mls @ 100 mls/hr IV Q6H [facility] Last Infusion: 11/23/24 03:21 Dose: Infused Documented By: JAVIER Sodium Chloride (Ns) 1,000 mls @ 100 mls/hr IVCONT .Q10H [facility] Last Admin: 11/23/24 05:49 Dose: Not Given Documented By: JAVIER Non-Admin Reason: IV Running Acetaminophen (Ofirmev) 1,000 mg in 100 mls @ 400 mls/hr IV Q6H [facility] Last Infusion: 11/23/24 04:44 Dose: Infused Documented By: JAVIER Lisinopril (Lisinopril 5 Mg Tablet) 5 mg PO DAILY [facility]; Protocol Last Admin: 11/22/24 08:28 Dose: 5 mg Documented By: JACLYN Metoclopramide HCl (Metoclopramide Hcl 10 Mg/2 Ml Vial) 10 mg IVPUSH Q6H PRN PRN Reason: Nausea and Vomiting Last Admin: 11/22/24 14:10 Dose: 10 mg Documented By: NERIS Multivitamins/Vitamin C (Multivitamin Tablet) 1 tab PO DAILY [facility] Last Admin: 11/22/24 08:30 Dose: Not Given Documented By: JACLYN Non-Admin Reason: Nausea Ondansetron HCl (Ondansetron Hcl 4 Mg/2 Ml Vial) 4 mg IVPUSH QID PRN PRN Reason: Nausea Last Admin: 11/22/24 20:10 Dose: 4 mg Documented By: NERIS Quetiapine Fumarate (Quetiapine Fumarate 100 Mg Tablet) 100 mg PO BEDTIME [facility] Last Admin: 11/22/24 20:59 Dose: 100 mg Documented By: NERIS Sodium Chloride (0.9 % Sodium Chloride Flush 3 Ml Syringe) 3 ml IVFLUSH QSHIFT [facility] Last Admin: 11/23/24 02:47 Dose: 3 ml Documented By: JAVIER Spironolactone (Spironolactone 25 Mg Tablet) 25 mg PO DAILY [facility]; Protocol Last Admin: 11/22/24 08:28 Dose: 25 mg Documented By: JACLYN Thiamine HCl (Thiamine Hcl 100 Mg Tablet) 100 mg PO DAILY [facility] Last Admin: 11/22/24 08:30 Dose: Not Given Documented By: JACLYN Non-Admin Reason: Nausea Zolpidem Tartrate (Zolpidem Tartrate 5 Mg Tablet) 5 mg PO BEDTIME PRN PRN Reason: Insomnia Last Admin: 11/21/24 21:31 Dose: 5 mg Documented By: HERMILO <[facility] - Last Filed: 11/23/24 07:06> Labs CBC & Chem 7: 11/21/24 05:41 11/22/24 05:35 <[facility] - Last Filed: 11/23/24 07:06> Labs: Laboratory Results - last 24 hr 11/22/24 05:35 Random Cortisol 26.1 <[facility] - Last Filed: 11/23/24 07:06> Microbiology Microbiology Results: Microbiology 11/20/24 Unknown Gram Stain - Final Gallbladder Routine Culture - Final No growth after 2 days Anaerobic Culture - Preliminary No growth to date. <[facility] - Last Filed: 11/23/24 07:06> Procedures Date of Service Date of Service: 11/23/24 <[facility] - Last Filed: 11/23/24 07:06> 11/23/24 <Michelle Garcia PA-C - Last Filed: 11/23/24 07:23> 11/23/24 <James Atkins MD - Last Filed: 11/23/24 08:04> Progress Note: A&P Assessment and plan (1) S/P cholecystectomy: Status: Acute <[facility] - Last Filed: 11/23/24 07:06> (2) Mass of gallbladder: Status: Acute <[facility] - Last Filed: 11/23/24 07:06> Assessment and Plan: Justino is POD #2 s/p laparoscopy attempted converted to open cholecystectomy. Feels better after NGT placement yesterday with subsequent emesis and flatus. Ambulating to restroom well. NPO for bowel rest. <[facility] - Last Filed: 11/23/24 07:06> Justino is POD #3 s/p laparoscopy attempted converted to open cholecystectomy. Feels better after NGT placement yesterday with subsequent emesis and flatus. Ambulating to restroom well. NPO for bowel rest. Agree with above assessment. He had 1.5L of bilious vomiting yesterday and subsequent NGT was inserted but he made the RN remove it. He vomited once after. He reports feeling significantly improved this morning and states he is leaving. He reports he tolerated some crackers early this morning Passing flatus. VSS. Abd remains significantly distended on exam this morning. Discussed he can leave AMA otherwise do not feel he is ready for discharge. He agreed to ambulate this morning and attempt clear liquids. Will remove drain. <Michelle Garcia PA-C - Last Filed: 11/23/24 07:23> Time Spent With Patient Time: Total time managing care of this patient today ____ minutes. <Issac Farmer - Last Filed: 11/23/24 07:06> Quality Stroke Does the patient have a stroke diagnosis?: No <Issac Farmer - Last Filed: 11/23/24 07:06> VTE Prior VTE?: No <Issac Farmer - Last Filed: 11/23/24 07:06> VTE Risk Level:: Surgical - moderate <Issac Farmer - Last Filed: 11/23/24 07:06> VTE Device Contraindication: N/A - Device Ordered <Issac Farmer - Last Filed: 11/23/24 07:06> VTE Drug Contraindication: Treatment Not Indicated <Issac Farmer - Last Filed: 11/23/24 07:06>
[2024-11-23 07:38] VITALS: BP 118/61; PULSE 88; TEMP 36.7; O2SAT 94
[2024-11-23] MEDS: Thiamine HCL 100 MG TABLET PO (07:43)
[2024-11-23] MEDS: Spironolactone 25 MG TABLET PO (07:44)
[2024-11-23] MEDS: Famotidine/PF 20 MG/2 ML VIAL IVPUSH ×2 (07:44→20:32)
[2024-11-23] MEDS: Folic Acid 1 MG TABLET PO (07:45)
[2024-11-23] MEDS: carvediloL 3.125 MG TABLET PO ×2 (07:45→20:36)
[2024-11-23] MEDS: Multivitamin TABLET 1 TAB PO (07:46)
[2024-11-23] MEDS: lisinopriL 5 MG TABLET PO (07:46)
[2024-11-23 08:16] LABS: Anion Gap 14 (12-20); Blood Urea Nitrogen 27 mg/dL (9-16); Calcium 9.1 mg/dL (8.4-10.2); Carbon Dioxide 25 mmol/L (22-29); Chloride 95 mmol/L (96-108); Creatinine Clr Calc Pharmacy 33.8; Estimated Glomerular Filt Rate 27; Glucose Random 108 mg/dL (60-115); Potassium 4.2 mmol/L (3.3-5.1); Sodium 130 mmol/L (135-145)
[2024-11-23 08:38] LABS: Cortisol Random 16.3 ug/dL
[2024-11-23] MEDS: 0.9 % Sodium Chloride 1,000 ML 100 ML IVCONT (09:28)
--- NOTE | 2024-11-23 09:54 | P.PNIM_ITS ---
Subjective Subjective Date of Service: 11/23/24 Interval History: bilious vomiting yesterday; NGT placed then pt requested it be removed now passing flatus c/o abd pain SCr worse Review of Systems Review of Systems: Yes all other systems are reviewed and are negative Physical Exam 2 Vital Signs: Vital Signs: Last Vital Signs Temp 98.1 F 11/23/24 07:38 Pulse 88 11/23/24 07:38 Resp 18 11/23/24 02:46 BP 118/61 11/23/24 07:38 Pulse Ox 94 11/23/24 07:38 O2 Del Method Room Air 11/23/24 07:38 O2 Flow Rate 2 11/20/24 13:55 BMI result Body Mass Index 31.3 Gen: in no acute distress HEENT: sclera anicteric, moist mucus membranes Neck: supple Lungs: clear to auscultation bilaterally Heart: regular, tachycardic, no murmurs Abd: distended, no bowel sounds, incisions clean, JENI with serosanguinous liquid Ext: no edema Skin: warm/well-perfused Neuro: alert and oriented x3, no focal findings Psych: appropriate affect Objective Data Active Medications Benzonatate (Benzonatate 100 Mg Capsule) 200 mg PO TID PRN PRN Reason: Cough Last Admin: 11/22/24 15:20 Dose: 200 mg Documented By: NERIS Calcium Carbonate (Calcium Carbonate 750 Mg Tab.Chew) 750 mg PO Q4H PRN PRN Reason: Heartburn Carvedilol (Carvedilol 3.125 Mg Tablet) 3.125 mg PO BID [facility]; Protocol Last Admin: 11/23/24 07:45 Dose: 3.125 mg Documented By: ARACELI Famotidine (Famotidine/Pf 20 Mg/2 Ml Vial) 20 mg IVPUSH BID [facility] Last Admin: 11/23/24 07:44 Dose: 20 mg Documented By: ARACELI Folic Acid (Folic Acid 1 Mg Tablet) 1 mg PO DAILY [facility] Last Admin: 11/23/24 07:45 Dose: 1 mg Documented By: ARACELI Furosemide (Furosemide 20 Mg Tablet) 20 mg PO DAILY [facility]; Protocol Last Admin: 11/21/24 08:34 Dose: 20 mg Documented By: NERIS Comments: See nurse's note. Hydromorphone HCl (Hydromorphone Hcl 0.5 Mg/0.5 Ml Syringe) 0.5 mg IVPUSH Q3H PRN; Protocol PRN Reason: Pain, Severe (Pain Scale 7-10) Last Admin: 11/22/24 10:31 Dose: 0.5 mg Documented By: JACLYN Hydromorphone HCl (Hydromorphone Hcl 2 Mg Tablet) 2 mg PO Q4H PRN PRN Reason: Pain, Moderate(Pain Scale 4-6) Last Admin: 11/22/24 08:28 Dose: 2 mg Documented By: JACLYN Piperacillin Sod/Tazobactam (Sod 3.375 gm/ Sodium Chloride) 50 mls @ 100 mls/hr IV Q6H [facility] Last Infusion: 11/23/24 08:17 Dose: Infused Documented By: ARACELI Sodium Chloride (Ns) 1,000 mls @ 100 mls/hr IVCONT .Q10H [facility] Last Admin: 11/23/24 09:28 Dose: 100 mls/hr Documented By: ARACELI Acetaminophen (Ofirmev) 1,000 mg in 100 mls @ 400 mls/hr IV Q6H [facility] Last Infusion: 11/23/24 04:44 Dose: Infused Documented By: JAVIER Lisinopril (Lisinopril 5 Mg Tablet) 5 mg PO DAILY [facility]; Protocol Last Admin: 11/23/24 07:46 Dose: 5 mg Documented By: ARACELI Metoclopramide HCl (Metoclopramide Hcl 10 Mg/2 Ml Vial) 10 mg IVPUSH Q6H PRN PRN Reason: Nausea and Vomiting Last Admin: 11/22/24 14:10 Dose: 10 mg Documented By: NERIS Multivitamins/Vitamin C (Multivitamin Tablet) 1 tab PO DAILY [facility] Last Admin: 11/23/24 07:46 Dose: 1 tab Documented By: ARACELI Ondansetron HCl (Ondansetron Hcl 4 Mg/2 Ml Vial) 4 mg IVPUSH QID PRN PRN Reason: Nausea Last Admin: 11/22/24 20:10 Dose: 4 mg Documented By: NERIS Quetiapine Fumarate (Quetiapine Fumarate 100 Mg Tablet) 100 mg PO BEDTIME [facility] Last Admin: 11/22/24 20:59 Dose: 100 mg Documented By: NERIS Sodium Chloride (0.9 % Sodium Chloride Flush 3 Ml Syringe) 3 ml IVFLUSH QSHIFT [facility] Last Admin: 11/23/24 07:47 Dose: 3 ml Documented By: ARACELI Spironolactone (Spironolactone 25 Mg Tablet) 25 mg PO DAILY [facility]; Protocol Last Admin: 11/23/24 07:44 Dose: 25 mg Documented By: ARACELI Thiamine HCl (Thiamine Hcl 100 Mg Tablet) 100 mg PO DAILY [facility] Last Admin: 11/23/24 07:43 Dose: 100 mg Documented By: ARACELI Zolpidem Tartrate (Zolpidem Tartrate 5 Mg Tablet) 5 mg PO BEDTIME PRN PRN Reason: Insomnia Last Admin: 11/21/24 21:31 Dose: 5 mg Documented By: HERMILO Labs 11/21/24 05:41 11/23/24 07:03 Labs: Laboratory Results - last 24 hr 11/23/24 07:03 Anion Gap 14 Estim Creat Clear Calc 33.8 Estimated GFR 27 Random Glucose 108 Calcium 9.1 Random Cortisol 16.3 Microbiology Microbiology Results: Microbiology 11/20/24 Unknown Gram Stain - Final Gallbladder Routine Culture - Final No growth after 2 days Anaerobic Culture - Preliminary No growth to date. Assessment and Plan (1) Hyponatremia: Status: Acute Plan d4 for 64yo M on Gen Surg service for attemped lap/converted to open cholecystectomy; found to have purulent cholecystitis with markedly inflamed and contracted gallbladder wall. Medicine consult for hypoNa ABEL - appears prerenal and was likely due to vomiting; will give NS @125 mL/hr and recheck BMP in AM hypoNa - now back to chronic level of around 130; recheck BMP in AM - 1st random cortisol low; repeat normal x2 gallbladder mass vs cholecystitis post op ileus - culture and pathology pending; managed by Surgery - 11/20- piperacillin-tazobactam - on clears as per Surgery AUD without active withdrawal - prn CIWA, Addiction Medicine, thiamine, folate hx cardiomyopathy/chronic HFrEF [TTE LVEF 40-45 % 11/17/24] - holding furosemide; continue carvedilol + lisinopril + spironolactone VTE ppx - SCDs In my clinical judgment, the patient requires continued inpatient hospitalization for the following reasons: postop care, IV ABX, ABEL Total time managing care of this patient today: 40 minutes. Quality Stroke Does the patient have a stroke diagnosis?: No VTE Prior VTE?: No VTE Risk Level:: Surgical - moderate VTE Device Contraindication: N/A - Device Ordered VTE Drug Contraindication: Treatment Not Indicated
[2024-11-23] MEDS: Benzonatate 100 MG CAPSULE 200 MG PO (12:25)
[2024-11-23 16:00] VITALS: BP 116/63; PULSE 70; RESP 16; TEMP 36.7; O2SAT 96
--- NOTE | 2024-11-23 18:09 | P.PNNP_ITS ---
Subjective Subjective Date of Service: 11/23/24 Interval history: Seen this AM. All recent data reviewed; SCr worse Physical Exam 2 Vital Signs: Vital Signs: Last Vital Signs Temp 98.1 F 11/23/24 16:00 Pulse 70 11/23/24 16:00 Resp 16 11/23/24 16:00 BP 116/63 11/23/24 16:00 Pulse Ox 96 11/23/24 16:00 O2 Del Method Room Air 11/23/24 16:00 O2 Flow Rate 2 11/20/24 13:55 BMI result Body Mass Index 31.3 Const: General: comfortable Orientation/consciousness: patient oriented x3 Eyes: EOM: EOMs intact bilaterally Neck: Neck: Yes supple Resp: Auscultation: diminished lung sounds Cardio: Rate: regular rate GI: Palpation (GI): Soft to palpation Neuro: General: patient oriented x3 Objective Data Labs 11/21/24 05:41 11/23/24 07:03 Labs: Laboratory Results - last 24 hr 11/23/24 07:03 Sodium 130 L Potassium 4.2 Chloride 95 L Carbon Dioxide 25 Anion Gap 14 BUN 27 H Creatinine 2.41 H Estim Creat Clear Calc 33.8 Estimated GFR 27 Random Glucose 108 Calcium 9.1 Random Cortisol 16.3 Microbiology Microbiology Results: Microbiology 11/20/24 Unknown Gallbladder Gram Stain - Final 11/20/24 Unknown Gallbladder Routine Culture - Final No growth after 2 days 11/20/24 Unknown Gallbladder Anaerobic Culture - Preliminary No growth to date. Procedures Date of Service Date of Service: 11/23/24 Assessment & Plan Assessment and plan (1) ABEL (acute kidney injury): Status: Acute Plan ABEL due to compromise in renal perfusion with resultant tubular injury Diuretics/ACEI on hold. UO good. No reason to suspect GN/AIN Serum creatinine not plateaued; C/W rest of current supportive care for now No indication for HD now; Labs AM. Shall closely follow up Progress Note: Quality Stroke Does the patient have a stroke diagnosis?: No
[2024-11-23 19:40] VITALS: BP 140/72; PULSE 78; RESP 18; TEMP 36.3; O2SAT 97
[2024-11-23] MEDS: 0.9 % Sodium Chloride 1,000 ML 125 ML IVCONT (20:31)
[2024-11-23] MEDS: QUEtiapine Fumarate 100 MG TABLET PO (20:36)
[2024-11-24 02:23] VITALS: BP 128/68; PULSE 89; RESP 20; TEMP 36.2; O2SAT 97
[2024-11-24] MEDS: Piperacillin Sodium/Tazobactam 3.375 GM in 0.9 % Sodium Chloride 50 ML IV ×2 (03:12→07:47)
[2024-11-24] MEDS: Acetaminophen 1,000 MG/100 ML PIGGYBACK 400 MG IV ×2 (04:53→10:29)
[2024-11-24] MEDS: 0.9 % Sodium Chloride 1,000 ML 125 ML IVCONT (06:22)
--- NOTE | 2024-11-24 06:52 | PM.PNGS ---
Subjective Subjective Date of Service: 11/24/24 <Issac Cunninghamt - Last Filed: 11/24/24 07:04> 11/24/24 <Michelle Garcia PA-C - Last Filed: 11/24/24 07:44> 11/27/24 <James Atkins MD - Last Filed: 11/27/24 09:00> Interval history: Justino feels poor this morning. He reports having large, frequent bouts of diarrhea yesterday until midnight. Denies n/v, chest pain, palpitations, dizziness. Pain well controlled. Tolerating sips of fluids. He endorses strong desires to return home today. <Issac Cunninghamt - Last Filed: 11/24/24 07:04> Physical Exam Vital Signs: Vital Signs: Last Vital Signs Temp 97.2 F 11/24/24 02:23 Pulse 89 11/24/24 02:23 Resp 20 11/24/24 02:23 BP 128/68 11/24/24 02:23 Pulse Ox 97 11/24/24 02:23 O2 Del Method Room Air 11/24/24 02:23 O2 Flow Rate 2 11/20/24 13:55 BMI result Body Mass Index 31.3 <[facility] - Last Filed: 11/24/24 07:04> Const: Other: dry mucous membranes <[facility] - Last Filed: 11/24/24 07:04> General: awake, lethargic and tired appearing <[facility] - Last Filed: 11/24/24 07:04> Orientation/consciousness: lethargic <[facility] - Last Filed: 11/24/24 07:04> Eyes: Other: anicteric EOMI <[facility] - Last Filed: 11/24/24 07:04> Resp: Other: CTAB speaking in full sentences no cough [facility] Last Filed: 11/24/24 07:04> GI: Other: markedly distended abdomen diffusely TTP hypoactive sounds JENI tube draining 5 mL slightly red tinged serous fluid bandage 20% soaked inferior to JENI tube site <[facility] - Last Filed: 11/24/24 07:04> Other: abdomen remains distended but improved, soft diffusely TTP hypoactive sounds JENI tube draining 5 mL slightly red tinged serous fluid bandage 20% soaked inferior to JENI tube site <Michelle Garcia PA-C - Last Filed: 11/24/24 07:44> Extrem: Other: moving all extremities spontaneously AOx3 <Issac Farmer - Last Filed: 11/24/24 07:04> Objective Data Active Medications Benzonatate (Benzonatate 100 Mg Capsule) 200 mg PO TID PRN PRN Reason: Cough Last Admin: 11/23/24 12:25 Dose: 200 mg Documented By: ARACELI Calcium Carbonate (Calcium Carbonate 750 Mg Tab.Chew) 750 mg PO Q4H PRN PRN Reason: Heartburn Carvedilol (Carvedilol 3.125 Mg Tablet) 3.125 mg PO BID [facility]; Protocol Last Admin: 11/23/24 20:36 Dose: 3.125 mg Documented By: YONG Famotidine (Famotidine/Pf 20 Mg/2 Ml Vial) 20 mg IVPUSH BID [facility] Last Admin: 11/23/24 20:32 Dose: 20 mg Documented By: YONG Folic Acid (Folic Acid 1 Mg Tablet) 1 mg PO DAILY [facility] Last Admin: 11/23/24 07:45 Dose: 1 mg Documented By: ARACELI Furosemide (Furosemide 20 Mg Tablet) 20 mg PO DAILY [facility]; Protocol Last Admin: 11/21/24 08:34 Dose: 20 mg Documented By: NERIS Comments: See nurse's note. Hydromorphone HCl (Hydromorphone Hcl 0.5 Mg/0.5 Ml Syringe) 0.5 mg IVPUSH Q3H PRN; Protocol PRN Reason: Pain, Severe (Pain Scale 7-10) Last Admin: 11/22/24 10:31 Dose: 0.5 mg Documented By: JACLYN Hydromorphone HCl (Hydromorphone Hcl 2 Mg Tablet) 2 mg PO Q4H PRN PRN Reason: Pain, Moderate(Pain Scale 4-6) Last Admin: 11/22/24 08:28 Dose: 2 mg Documented By: JACLYN Piperacillin Sod/Tazobactam (Sod 3.375 gm/ Sodium Chloride) 50 mls @ 100 mls/hr IV Q6H [facility] Last Infusion: 11/24/24 03:42 Dose: Infused Documented By: YONG Sodium Chloride (Ns) 1,000 mls @ 125 mls/hr IVCONT .Q8H [facility] Last Admin: 11/24/24 06:22 Dose: 125 mls/hr Documented By: YONG Acetaminophen (Ofirmev) 1,000 mg in 100 mls @ 400 mls/hr IV Q6H [facility] Last Infusion: 11/24/24 05:10 Dose: Infused Documented By: YONG Lisinopril (Lisinopril 5 Mg Tablet) 5 mg PO DAILY [facility]; Protocol Last Admin: 11/23/24 07:46 Dose: 5 mg Documented By: ARACLEI Metoclopramide HCl (Metoclopramide Hcl 10 Mg/2 Ml Vial) 10 mg IVPUSH Q6H PRN PRN Reason: Nausea and Vomiting Last Admin: 11/22/24 14:10 Dose: 10 mg Documented By: NERIS Multivitamins/Vitamin C (Multivitamin Tablet) 1 tab PO DAILY [facility] Last Admin: 11/23/24 07:46 Dose: 1 tab Documented By: ARACELI Ondansetron HCl (Ondansetron Hcl 4 Mg/2 Ml Vial) 4 mg IVPUSH QID PRN PRN Reason: Nausea Last Admin: 11/22/24 20:10 Dose: 4 mg Documented By: NERIS Quetiapine Fumarate (Quetiapine Fumarate 100 Mg Tablet) 100 mg PO BEDTIME [facility] Last Admin: 11/23/24 20:36 Dose: 100 mg Documented By: YONG Sodium Chloride (0.9 % Sodium Chloride Flush 3 Ml Syringe) 3 ml IVFLUSH QSHIFT [facility] Last Admin: 11/23/24 20:32 Dose: 3 ml Documented By: YONG Spironolactone (Spironolactone 25 Mg Tablet) 25 mg PO DAILY [facility]; Protocol Last Admin: 11/23/24 07:44 Dose: 25 mg Documented By: ARACELI Thiamine HCl (Thiamine Hcl 100 Mg Tablet) 100 mg PO DAILY [facility] Last Admin: 11/23/24 07:43 Dose: 100 mg Documented By: ARACELI Zolpidem Tartrate (Zolpidem Tartrate 5 Mg Tablet) 5 mg PO BEDTIME PRN PRN Reason: Insomnia Last Admin: 11/21/24 21:31 Dose: 5 mg Documented By: HERMILO <[facility] - Last Filed: 11/24/24 07:04> Labs CBC & Chem 7: 11/21/24 05:41 11/24/24 06:11 <Issac Darian - Last Filed: 11/24/24 07:04> Labs: Laboratory Results - last 24 hr 11/23/24 11/24/24 07:03 06:11 Hold Purple Top SEE NOTE Anion Gap 14 Estim Creat Clear Calc 33.8 Estimated GFR 27 Random Glucose 108 Calcium 9.1 Random Cortisol 16.3 <[facility] - Last Filed: 11/24/24 07:04> Procedures Date of Service Date of Service: 11/24/24 <[facility] - Last Filed: 11/24/24 07:04> 11/24/24 <Michelle Garcia PA-C - Last Filed: 11/24/24 07:44> 11/27/24 <James Atkins MD - Last Filed: 11/27/24 09:00> Progress Note: A&P Assessment and plan (1) ABEL (acute kidney injury): Status: Acute <Issac Darian - Last Filed: 11/24/24 07:04> (2) S/P cholecystectomy: Status: Acute <[facility] - Last Filed: 11/24/24 07:04> Assessment and Plan: Justino is POD # 4 from attempted lap cholecystectomy converted to open. s/p cholecystectomy abdominal distention still present with hypoactive bowel sounds. pathology report does not suggest malignancy continue abxs ABEL Likely prerenal from volume depletion secondary to emesis. IVF running and making urine Pain well managed, with incisional pain and tenderness to palpation. Salomón Farmer MS3 <Issac Farmer - Last Filed: 11/24/24 07:04> Justino is POD # 4 from attempted lap cholecystectomy converted to open. s/p cholecystectomy abdominal distention still present with hypoactive bowel sounds. pathology report does not suggest malignancy continue abxs ABEL Likely prerenal from volume depletion secondary to emesis. IVF running and making urine Pain well managed, with incisional pain and tenderness to palpation. Salomón Farmer MS3 Agree with above assessment and plan by Salomón Farmer MS-3. Patient now having loose stools, less bloated. Abd is softer, less distended this morning, mild incisional tenderness . JENI drain output scant serosanguineous. PAthology negative for malignancy and reviewed with patient. ABEL improved this morning. Will advance to solid diet. If tolerating and deemed medically stable by hospitalist, possible dc to home later today. Will remove drain prior. <Michelle Garcia PA-C - Last Filed: 11/24/24 07:44> Time Spent With Patient Time: Total time managing care of this patient today ____ minutes. <Issac Farmer - Last Filed: 11/24/24 07:04> Quality Stroke Does the patient have a stroke diagnosis?: No <Issac Farmer - Last Filed: 11/24/24 07:04> VTE Prior VTE?: No <Issac Farmer - Last Filed: 11/24/24 07:04> VTE Risk Level:: Surgical - moderate <Issac Farmer - Last Filed: 11/24/24 07:04> VTE Device Contraindication: N/A - Device Ordered <Issac Farmer - Last Filed: 11/24/24 07:04> VTE Drug Contraindication: Treatment Not Indicated <Issac Enriquez Last Filed: 11/24/24 07:04>
[2024-11-24 07:22] LABS: Anion Gap 11 (12-20); Blood Urea Nitrogen 20 mg/dL (9-16); Calcium 7.9 mg/dL (8.4-10.2); Carbon Dioxide 23 mmol/L (22-29); Chloride 99 mmol/L (96-108); Creatinine Clr Calc Pharmacy 52.6; Estimated Glomerular Filt Rate 45; Glucose Random 85 mg/dL (60-115); Potassium 3.3 mmol/L (3.3-5.1); Sodium 130 mmol/L (135-145)
[2024-11-24 07:36] VITALS: BP 132/70; PULSE 75; RESP 16; TEMP 36.4; O2SAT 98
[2024-11-24] MEDS: Famotidine/PF 20 MG/2 ML VIAL IVPUSH (07:47)
[2024-11-24] MEDS: Folic Acid 1 MG TABLET PO (07:47)
[2024-11-24] MEDS: Multivitamin TABLET 1 TAB PO (07:47)
[2024-11-24] MEDS: lisinopriL 5 MG TABLET PO (07:47)
[2024-11-24] MEDS: Spironolactone 25 MG TABLET PO (07:47)
[2024-11-24] MEDS: Thiamine HCL 100 MG TABLET PO (07:47)
[2024-11-24] MEDS: carvediloL 3.125 MG TABLET PO (07:47)
[2024-11-24] MEDS: Benzonatate 100 MG CAPSULE 200 MG PO (07:59)
[2024-11-24] MEDS: 0.9 % Sodium Chloride Flush 3 ML SYRINGE IVFLUSH (08:00)
--- NOTE | 2024-11-24 10:36 | HO.PM.IMPN ---
Subjective Subjective Date of Service: 11/24/24 Interval History: Cr improved, Na stable tolerating diet, wants to go home pain controlled Review of Systems Review of Systems: Yes all other systems are reviewed and are negative Physical Exam Vital Signs: Vital Signs: Last Vital Signs Temp 97.5 F 11/24/24 07:36 Pulse 75 11/24/24 07:36 Resp 16 11/24/24 07:36 BP 132/70 11/24/24 07:36 Pulse Ox 98 11/24/24 07:36 O2 Del Method Room Air 11/24/24 07:36 O2 Flow Rate 2 11/20/24 13:55 BMI result Body Mass Index 31.3 Gen: in no acute distress HEENT: sclera anicteric, moist mucus membranes Neck: supple Lungs: clear to auscultation bilaterally Heart: regular, tachycardic, no murmurs Abd: less distended, a few bowel sounds, incisions clean, JENI with serosanguinous liquid Ext: no edema Skin: warm/well-perfused Neuro: alert and oriented x3, no focal findings Psych: appropriate affect Objective Data Active Medications Benzonatate (Benzonatate 100 Mg Capsule) 200 mg PO TID PRN PRN Reason: Cough Last Admin: 11/24/24 07:59 Dose: 200 mg Documented By: ARACELI Calcium Carbonate (Calcium Carbonate 750 Mg Tab.Chew) 750 mg PO Q4H PRN PRN Reason: Heartburn Carvedilol (Carvedilol 3.125 Mg Tablet) 3.125 mg PO BID [facility]; Protocol Last Admin: 11/24/24 07:47 Dose: 3.125 mg Documented By: ARACELI Famotidine (Famotidine/Pf 20 Mg/2 Ml Vial) 20 mg IVPUSH BID [facility] Last Admin: 11/24/24 07:47 Dose: 20 mg Documented By: ARACELI Folic Acid (Folic Acid 1 Mg Tablet) 1 mg PO DAILY [facility] Last Admin: 11/24/24 07:47 Dose: 1 mg Documented By: ARACELI Furosemide (Furosemide 20 Mg Tablet) 20 mg PO DAILY [facility]; Protocol Last Admin: 11/21/24 08:34 Dose: 20 mg Documented By: NERIS Comments: See nurse's note. Hydromorphone HCl (Hydromorphone Hcl 0.5 Mg/0.5 Ml Syringe) 0.5 mg IVPUSH Q3H PRN; Protocol PRN Reason: Pain, Severe (Pain Scale 7-10) Last Admin: 11/22/24 10:31 Dose: 0.5 mg Documented By: JACLYN Hydromorphone HCl (Hydromorphone Hcl 2 Mg Tablet) 2 mg PO Q4H PRN PRN Reason: Pain, Moderate(Pain Scale 4-6) Last Admin: 11/22/24 08:28 Dose: 2 mg Documented By: JACLYN Piperacillin Sod/Tazobactam (Sod 3.375 gm/ Sodium Chloride) 50 mls @ 100 mls/hr IV Q6H [facility] Last Infusion: 11/24/24 08:17 Dose: Infused Documented By: ARACELI Sodium Chloride (Ns) 1,000 mls @ 125 mls/hr IVCONT .Q8H [facility] Last Admin: 11/24/24 06:22 Dose: 125 mls/hr Documented By: YONG Acetaminophen ([facility]) 1,000 mg in 100 mls @ 400 mls/hr IV Q6H [facility] Last Admin: 11/24/24 10:29 Dose: 400 mls/hr Documented By: WILLIAM Lisinopril (Lisinopril 5 Mg Tablet) 5 mg PO DAILY [facility]; Protocol Last Admin: 11/24/24 07:47 Dose: 5 mg Documented By: ARACELI Metoclopramide HCl (Metoclopramide Hcl 10 Mg/2 Ml Vial) 10 mg IVPUSH Q6H PRN PRN Reason: Nausea and Vomiting Last Admin: 11/22/24 14:10 Dose: 10 mg Documented By: NERIS Multivitamins/Vitamin C (Multivitamin Tablet) 1 tab PO DAILY [facility] Last Admin: 11/24/24 07:47 Dose: 1 tab Documented By: ARACELI Ondansetron HCl (Ondansetron Hcl 4 Mg/2 Ml Vial) 4 mg IVPUSH QID PRN PRN Reason: Nausea Last Admin: 11/22/24 20:10 Dose: 4 mg Documented By: NERIS Quetiapine Fumarate (Quetiapine Fumarate 100 Mg Tablet) 100 mg PO BEDTIME [facility] Last Admin: 11/23/24 20:36 Dose: 100 mg Documented By: YONG Sodium Chloride (0.9 % Sodium Chloride Flush 3 Ml Syringe) 3 ml IVFLUSH QSHIFT [facility] Last Admin: 11/24/24 08:00 Dose: 3 ml Documented By: ARACELI Spironolactone (Spironolactone 25 Mg Tablet) 25 mg PO DAILY [facility]; Protocol Last Admin: 11/24/24 07:47 Dose: 25 mg Documented By: ARACELI Thiamine HCl (Thiamine Hcl 100 Mg Tablet) 100 mg PO DAILY [facility] Last Admin: 11/24/24 07:47 Dose: 100 mg Documented By: ARACELI Zolpidem Tartrate (Zolpidem Tartrate 5 Mg Tablet) 5 mg PO BEDTIME PRN PRN Reason: Insomnia Last Admin: 11/21/24 21:31 Dose: 5 mg Documented By: HERMILO Labs 11/21/24 05:41 11/24/24 06:11 Labs: Laboratory Results - last 24 hr 11/24/24 06:11 Hold Purple Top SEE NOTE Anion Gap 11 L Estim Creat Clear Calc 52.6 Estimated GFR 45 Random Glucose 85 Calcium 7.9 L D Assessment and Plan (1) Hyponatremia: Status: Acute Plan d5 for 64yo M on Gen Surg service for attemped lap/converted to open cholecystectomy; found to have purulent cholecystitis with markedly inflamed and contracted gallbladder wall. Medicine consult for hypoNa ABEL - appears prerenal and was likely due to vomiting; continue NS @125 mL/hr and recheck BMP in AM; if he is discharged today, recheck BMP as outpt 11/27/24 hypoNa - now back to chronic level of around 130 - 1st random cortisol low; repeat normal x2 gallbladder mass vs cholecystitis post op ileus - culture negative; pathology: Gallbladder, cholecystectomy: Acute and chronic cholecystitis with ulceration, patchy necrosis and reactive changes; negative for malignancy. - managed by Surgery - 11/20- piperacillin-tazobactam - ADAT as per Surgery AUD without active withdrawal - prn CIWA, Addiction Medicine, thiamine, folate; no apparent withdrawal hx cardiomyopathy/chronic HFrEF [TTE LVEF 40-45 % 11/17/24] - holding furosemide; continue carvedilol + lisinopril + spironolactone VTE ppx - SCDs In my clinical judgment, the patient requires continued inpatient hospitalization for the following reasons: postop care, IV ABX, ABEL Total time managing care of this patient today: 35 minutes. Quality Stroke Does the patient have a stroke diagnosis?: No VTE Prior VTE?: No VTE Risk Level:: Surgical - moderate VTE Device Contraindication: N/A - Device Ordered VTE Drug Contraindication: Treatment Not Indicated
--- NOTE | 2024-11-24 10:37 | PM.EVENT ---
Event Note Date of Service: 11/24/24 Event Note: Patient tolerated solid diet without nausea/vomiting. Continues to pass flatus/move bowels. Discussed with Dr. Roseline padgett for discharge to home today, repeat BMP on Wednesday. Patient comfortable with plan. JENI drain output remained scant, nonbilious and removed at bedside uneventfully. F/u in office in [address] Atkins. Time Spent With Patient Time: Total time managing care of this patient today ____ minutes.
--- NOTE | 2024-11-24 11:31 | MHC.CM.PN ---
Patient medically cleared for dc home self care. Private transport. IMM delivered.
--- NOTE | 2024-11-27 10:38 | P.DS_ITS ---
DS: Providers Provider Date of Service: 11/24/24 Date of admission: 11/20/24 12:49 Date of discharge: 11/24/24 Primary care physician: Julian Javier MD Consults: 11/20/24 14:35 Consult to Hospitalist Routine Comment: Consulting Provider: [facility] Reason For Exam: s/p open cholecystectomy, medical management 11/21/24 09:42 Consult to Nephrology Routine Consulting Provider: [facility] Reason for consultation: hyponatremia Has provider been notified: No 11/21/24 14:25 Addiction Medicine Provider Routine Consulting Provider: [facility] Reason for consultation: etoh DS: Diagnosis Discharge Diagnosis (1) ABEL (acute kidney injury): Status: Acute (2) S/P cholecystectomy: Status: Acute DS: Summary Hospital Course Hospital Course: HPI AT ADMISSION: 64-year-old male patient presenting for evaluation of abnormal imaging of the gallbladder. He recently underwent ultrasound evaluation of the liver as part of a routine screening on 05/26/2024 and was incidentally noted to have a rounded masslike structure within the gallbladder lumen measuring approximately 4 x 4 by 3 x 9 by 4.1 cm. This is felt to be predominantly solid with scattered small cystic spaces. No significant internal vascularity was identified. Subsequent MRI performed on 06/26/2024 again revealed atypical rounded lobulated contour of the gallbladder. In the region of the gallbladder neck, there is a mild circumferential wall thickening with semi solid, polypoid protrusion into the gallbladder lumen which shows mild enhancement measuring 1.3 by 0.7 cm. No gallstones are seen. Smooth wall enhancement with no symmetric wall thickening in the body or fundus of the gallbladder is also noted. This was felt to be an atypical appearance of the gallbladder which did not appear typical for adenomyomatosis it may represent chronic postinflammatory changes or gallbladder carcinoma. No evidence of metastasis were identified. He denies any abdominal symptoms does report losing weight with dieting. HOSPITAL COURSE: On 11/20/24, attempted laparoscopic cholecystectomy converted to open cholecystectomy was performed by Dr. Atkins without immediate complication. He was found to have purulent cholecystitis with markedly inflamed and contracted gallbladder wall. JENI drain was placed. The patient tolerated the procedure well. He was admitted for observation post operatively due to the degree of difficulty of the procedure. Hospitalist consulted was obtained for management of his medical comorbidities. He was started on CIWA protocol for his alcohol use disorder. He had a slow recovery course with delayed return of GI function. He was encouraged to ambulate throughout his stay and activity increased. He developed increasing abdominal distention and had multiple episodes of bilious vomiting on POD #2. NGT was therefore inserted which he did not tolerate and made the RN remove. His GI function slowly returned following this and his nausea ceased and began passing flatus, moving bowels. He did have hyponatremia on labs which was thought in part chronic, due to reduced free water intake and due to hypo volemia. His lasix was held. He was given NS. This slowly improved. He did develop an ABEL due to the GI losses but his Cr also improved. His diet was slowly advanced once he had evidence of GI function. On the day of discharge, he was tolerating a solid diet without nausea, vomiting. He was ambulating without difficulty. He was having minimal pain. His abd was less distended and soft, incisions clean. His JENI Drain had nonbilious scant output and was removed. He was deemed medically stable for discharge by medicine with f/u with BMP in a few days. He is to hold his lasix until he follows up with his PCP. He was discharged to home on 11/24/24 in stable condition. He is to follow up with Dr. Atkins in 1 week in office. Status at Discharge Functional status at discharge: independent ambulation Overall status at discharge: patient is progressing back to baseline Time Attestation Discharge Coordination Time (in mins): 40 Quality: Safe Use of Opioids Does Pt have an Active Cancer Diagnosis on the Problem List?: No Quality: Stroke Does the patient have a stroke diagnosis?: No Physical Exam Vital Signs: Vital Signs: Last Vital Signs Temp 97.5 F 11/24/24 07:36 Pulse 75 11/24/24 07:36 Resp 16 11/24/24 07:36 BP 132/70 11/24/24 07:36 Pulse Ox 98 11/24/24 07:36 O2 Del Method Room Air 11/24/24 07:36 O2 Flow Rate 2 11/20/24 13:55 BMI result Body Mass Index 31.3 Const: General: comfortable, no acute distress and alert Resp: Effort & Inspection: normal respiratory effort GI: Other: abdomen soft distended, improved incisions clean JENI drain with scant nonbilious drainage, removed, dry dressing placed Skin: General skin exam: no rashes or lesions noted DS: Data Data Completed and Pending Completed studies during hospitalization [Text1]: 11/20/24 11:35 Surgical Path [Surgical] [PTH] Routine Gallbladder, cholecystectomy: Acute and chronic cholecystitis with ulceration, patchy necrosis and reactive changes; negative for malignancy Procedures Release Peritoneum, Percutaneous Endoscopic Approach (09/21/22) Repair Abdominal Wall, Open Approach (09/21/22) Resection of Appendix, Percutaneous Endoscopic Approach (09/21/22) Discharge Plan Discharge Anticipated Discharge Date/Time: 11/21/24 12:13 Patient Disposition: Home, Self-Care Discharge Diagnosis: s/p open cholecystectomy Referrals: Julian Javier MD [Primary Care Provider] - 1 Week James Atkins MD [Physician] - 1 Week Discharge Medications: New oxycodone 5 mg tablet 5 mg PO Q6H PRN (Reason: pain (scale score 7-10)) Qty: 15 0RF Rx Instructions: Partial Fill upon patient request. Continued thiamine HCl (vitamin B1) 100 mg Tablet 100 mg PO DAILY quetiapine 100 mg tablet 1 tab PO BEDTIME spironolactone 25 mg tablet 1 tab PO DAILY carvedilol 3.125 mg tablet 1 tab PO BID folic acid 800 mcg Tablet 0.8 mg PO DAILY bjfyqqictxnp-ergznjxu-cpuhal Tablet 1 tab PO DAILY lisinopril 5 mg tablet 5 mg PO DAILY aspirin 325 mg Tablet 162.5 mg PO DAILY Held furosemide 20 mg tablet 1 tab PO DAILY Hold Instructions: Resume on 11/28/24. Discharge Orders: Discharge Order (Routine); Ordered 11/24/24 Ordered By: Michelle Garcia Diet: Low fat, low cholesterol Activity on Discharge: No heavy lifting Print Language: Thai Other Ambulatory Orders: Basic Metabolic Panel (Routine) Timeframe: [id number] Facility: [facility] - Location: Laboratory Ordered By: Jose Fountain Activity Restrictions/Additional Instructions: No lifting > 10 pounds for 4 weeks Ok to shower, no tub bath. Stay on low fat diet for 1 month. No driving for one week. Ice to the incision as needed. Take Tylenol Extra-strength 1-2 tabs every 6 hours as needed Oxycodone every 6-8 hours as needed for pain Colace 100 mg every day as needed for constipation Follow up in office in one week (call office at [phone] for appointment). Keep dry dressing on drain removal site until it stops draining. Change every day and as needed. Care Plan Goals: Return to baseline health and resume normal activities following recovery period. Health Concerns: mass of gallbladder Plan of Treatment: s/p open cholecystectomy Pain control f/u in office in 1 week F/u pathology Hold furosemide for now Come to lab to check basic metabolic panel [BMP] on 11/27/24. You don't need to fast for this lab. Assessment: Improved. Discharge Date/Time: 11/24/24 11:41
--- NOTE | 2024-11-28 10:04 | P.CDIM_ITS ---
PROVIDER RESPONSE TEXT: To clarify, the appropriate diagnosis supported by the clinical indicators: Acute renal failure with suspected ATN QUERY TEXT: PHYSICIAN'S DOCUMENTATION REQUEST Date of Query: 11/23/2024 10:30 AM EDT Patient Name: Justino Karimi Admit Date: 11/20/2024 Dear James Atkins MD, A review of the medical record indicates additional documentation may be needed. Please review below and update the documentation accordingly. Clinical Indicators: Per Nephrology Progress Note 11/22/24: ABEL due to compromise in renal perfusion with resultant tubular injury BUN 16/Creatinine 1.25/Est GFR 58 Please clarify which of the following accurately represents the patient's renal status: Acute renal failure with suspected ATN Acute renal failure with other pathology (medullary, papillary, or cortical necrosis) e Other (explain) Clinically unable to determine (explain) Thank you, Meagan Child RN Use of terms such as suspected, likely, concern for, or probable (associated with a specific diagnosi s that is being evaluated, monitored, or treated as if it exists) are acceptable and can be coded in the inpatient se tting, when documented at the time of discharge. Please use your independent medical judgment in providing your response. THIS QUERY IS PART OF THE PERMANENT MEDICAL RECORD
== END 2024-11-24 11:41 | disposition home or self-care (01) | DRG 414 ==
LOC: HO.SSSA 12:55 → HO.S3 14:04
PROVIDERS: Family Medicine; Nurse Practitioner; Nurse Practitioner Family; Admitting Provider Surgery; PCP Internal Medicine; Visit Provider Surgery
PROC: 0FT44ZZ Resection of Gallbladder, Percutaneous Endoscopic Approach (ICD-10-PCS; CPT 47562; principal; 2024-11-20 09:30)
DX: K81.2 Acute cholecystitis with chronic cholecystitis (principal); N17.0 Acute kidney failure with tubular necrosis; I42.8 Other cardiomyopathies; I50.22 Chronic systolic (congestive) heart failure; K56.7 Ileus, unspecified; E87.1 Hypo-osmolality and hyponatremia; D63.1 Anemia in chronic kidney disease; F10.10 Alcohol abuse, uncomplicated; E66.811 Obesity, class 1; Z71.3 Dietary counseling and surveillance; Z68.31 Body mass index [BMI] 31.0-31.9, adult; Z79.82 Long term (current) use of aspirin; Z79.899 Other long term (current) drug therapy
CPT/HCPCS: 36415; 80048; 80053; 80307; 82248; 82533; 82570; 83930; 83935; 84295; 84300; 84443; 85025; 85027; 85610; 87070; 87073; 87205; 88304; 88341; 88342; 93005; 93306; J0131; J1100; J1171; J2003; J2405; J2543; J2704; J2765; J2795; J3010; S9485

== ENCOUNTER → 2024-11-20 12:49 | Outpatient (BNV) | payer MEDICARE, SELFPAY | PROVIDERS: Admitting Provider Surgery; PCP Internal Medicine; Visit Provider Internal Medicine | DX: E87.1 Hypo-osmolality and hyponatremia (principal) | CPT/HCPCS: 99232 ==

== ENCOUNTER → 2024-11-20 12:49 | Outpatient (BNV) | payer MEDICARE, SELFPAY | PROVIDERS: Admitting Provider Surgery; PCP Internal Medicine; Visit Provider Internal Medicine Hypertension Specialist | DX: N17.9 Acute kidney failure, unspecified (principal) | CPT/HCPCS: 99223; 99232 ==

== ENCOUNTER 2024-12-01 08:27 | Outpatient (AMB) | payer MEDICARE, OTHER, SELFPAY ==
--- NOTE | 2024-12-01 08:40 | A.OFFVIS_ITS ---
Vital Signs 12/01/24 08:42 Height 5 ft 8 in Weight 194 lb BMI 29.5 BP 153/67 H Blood Pressure Location Lt brachial Position Sitting Pulse 44 L Intake Visit Reasons: post lap cristian Intake Note: Patient is seen in office for post op assessment post open cholecystectomy. 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 Initial ultrasonography on 05/26/2024 revealed changes suggestive of a mass for which surgical intervention was advised. On 11/20/2024, an attempted laparoscopic cholecystectomy was transitioned to an open procedure due to marked inflammation and the contracted nature of the gallbladder. Intraoperative findings included a fully obstructed gallbladder with purulent bile, consistent with an abscess rather than cancer. Postoperatively, the patient developed bilious vomiting, which was managed with a nasogastric tube. His condition improved, allowing for a gradual return to a normal diet over the course of a few days. A drain was retained until discharge as output remained non-bilious. Pathological results confirmed the presence of acute on chronic cholecystitis with ulceration and patchy necrosis, absent any malignant changes. [facility] Medical History Arthritis Numbness Pneumonia Non-ischemic cardiomyopathy Vasovagal syncope SOB (shortness of breath) Shoulder separation Recurrent genital herpes simplex Psoriasis Peyronie disease Obese MSSA bacteremia Cirrhosis Insomnia Hiatal hernia Erectile dysfunction Dupuytrens contracture Depression CKD (chronic kidney disease) stage 3, GFR 30-59 ml/min Chronic systolic congestive heart failure Anemia Alcohol abuse Adenomatous polyposis coli Abnormal liver function tests Shoulder fracture, left Valvular heart disease Sleep apnea Appendicitis Surgical History History of esophagogastroduodenoscopy (EGD) Hx of cardiac catheterization Hx of tooth extraction Hx of shoulder surgery H/O colonoscopy History of umbilical hernia repair (09/22/22) History of laparoscopic appendectomy (09/22/22) H/O oral surgery Social History Household Members: None Housing: House Are you a primary child care leader to a significant other at home: No Do you presently have visiting nurse or other home services: No Comment: pt agreeable to socks and sign, refuses other HF measures Patient Tobacco Use Status: Never used Tobacco Second Hand Smoke Exposure: No Substance Use Type: Crack/Cocaine service: No Physical Exam Vital Signs: Last Vital Signs Pulse 44 L 12/01/24 08:42 BP 153/67 H 12/01/24 08:42 BMI result Body Mass Index 29.5 Const General: comfortable Nutritional Appearance: well nourished Orientation/consciousness: oriented to time Resp Effort & Inspection: normal respiratory effort GI Other: Abdominal incisions including the Arya incision is clean, dry, and intact without redness or discharge. Wade removed and incision found to be well healed. Skin Other: Warm, dry, no rash Neuro General: oriented to time Extrem Other: No edema Assessment & Plan Assessment & Plan (1) Acute and chronic cholecystitis: Code(s): K81.2 - Acute cholecystitis with chronic cholecystitis Category: Medical (2) S/P cholecystectomy: Code(s): Z90.49 - Acquired absence of other specified parts of digestive tract Category: Surgical Plan 64-year-old male patient returning 1 week following laparoscopic converted to open cholecystectomy. He was doing well and tolerating his diet well. He was having some difficulty with his bowels and milk of magnesia and prune juice is recommended. Wade were removed today and the wounds found to be well healed. He should continue to avoid lifting greater than 10 lb for one-month following the surgery. I recommended he return in approximately 1 month for follow-up examination. He should call sooner for any new concerns. Coding Level of Care Code Global (69372) Diagnoses Acute and chronic cholecystitis K81.2 S/P cholecystectomy Z90.49
[2024-12-01 08:42] VITALS: BP 153/67; PULSE 44; BMI 29.5
== END 2024-12-01 08:48 | disposition home or self-care (01) ==
LOC: HO.HGS 08:28
PROVIDERS: PCP Internal Medicine; Visit Provider Surgery
DX: K81.2 Acute cholecystitis with chronic cholecystitis (principal); Z90.49 Acquired absence of other specified parts of digestive tract
CPT/HCPCS: 99024

== ENCOUNTER → 2024-12-01 08:27 | Outpatient (BNVA) | payer MEDICARE, OTHER, SELFPAY | PROVIDERS: PCP Internal Medicine; Visit Provider Surgery | DX: Z48.815 Encounter for surgical aftercare following surgery on the digestive system (principal); Z90.49 Acquired absence of other specified parts of digestive tract | CPT/HCPCS: 99212 ==

== ENCOUNTER 2025-01-02 08:54 | Outpatient (AMB) | payer MEDICARE, OTHER, SELFPAY ==
--- NOTE | 2025-01-02 08:57 | A.OFFVIS_ITS ---
Vital Signs 01/02/25 09:07 Height 5 ft 8 in Weight 193 lb BMI 29.3 BP 125/75 Blood Pressure Location Lt brachial Position Sitting Pulse 41 L Intake Visit Reasons: 1 mth follow up post lap cristian Intake Note: Patient is seen in office for one month follow up visit, post open cholecystectomy. 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: No Accompanied by: Other Relationship Allergies No Known Allergies [No Known Allergies*] Allergy (Verified 01/02/25 09:07) Medication List - Last Reconciled 01/02/25 by James Atkins MD aspirin 162.5 mg PO DAILY carvedilol 1 tab PO BID folic acid 0.8 mg PO DAILY furosemide 1 tab PO DAILY lisinopril 5 mg PO DAILY uylgenxmpqao-[id number] 1 tab PO DAILY quetiapine 1 tab PO BEDTIME spironolactone 1 tab PO DAILY thiamine HCl (vitamin B1) 100 mg PO DAILY HPI Comments Details: 64-year-old male patient returning 1 month following a laparoscopic converted to open cholecystectomy for suspected gallbladder mass. Performed on 11/20/2024. Subsequent pathology revealed no evidence of cancer rather an obstructed gallbladder with purulent bile. He reports feeling much improved with no abdominal pain, nausea or vomiting. He is eating well bowels have returned to normal. He does report numbness in the incision but denies any pain. [facility] Medical History Arthritis Numbness Pneumonia Non-ischemic cardiomyopathy Vasovagal syncope SOB (shortness of breath) Shoulder separation Recurrent genital herpes simplex Psoriasis Peyronie disease Obese MSSA bacteremia Cirrhosis Insomnia Hiatal hernia Erectile dysfunction Dupuytrens contracture Depression CKD (chronic kidney disease) stage 3, GFR 30-59 ml/min Chronic systolic congestive heart failure Anemia Alcohol abuse Adenomatous polyposis coli Abnormal liver function tests Shoulder fracture, left Valvular heart disease Sleep apnea Appendicitis Surgical History History of esophagogastroduodenoscopy (EGD) Hx of cardiac catheterization Hx of tooth extraction Hx of shoulder surgery H/O colonoscopy History of umbilical hernia repair (09/22/22) History of laparoscopic appendectomy (09/22/22) H/O oral surgery Social History Household Members: None Housing: House Are you a primary progressive care nurse to a significant other at home: No Do you presently have visiting nurse or other home services: No Comment: pt agreeable to socks and sign, refuses other HF measures Patient Tobacco Use Status: Never used Tobacco Second Hand Smoke Exposure: No Substance Use Type: Crack/Cocaine service: No Physical Exam Vital Signs: Last Vital Signs Pulse 41 L 01/02/25 09:07 BP 125/75 01/02/25 09:07 BMI result Body Mass Index 29.3 Const General: comfortable Nutritional Appearance: well nourished Orientation/consciousness: oriented to time Resp Effort & Inspection: normal respiratory effort GI Other: Abdominal incisions including the Arya incision is clean, dry, and intact without redness or discharge. No hernia noted with Valsalva maneuvers. Skin Other: Warm, dry, no rash Neuro General: oriented to time Extrem Other: No edema Assessment & Plan Assessment & Plan (1) Acute and chronic cholecystitis: Code(s): K81.2 - Acute cholecystitis with chronic cholecystitis Category: Medical (2) S/P cholecystectomy: Code(s): Z90.49 - Acquired absence of other specified parts of digestive tract Category: Surgical Plan 64-year-old male patient returning 1 month following laparoscopic converted to open cholecystectomy for a suspected gallbladder mass. He was subsequently found to have acute cholecystitis with purulent bile. Overall he is much improved and tolerating his diet without nausea or vomiting. His bowels have returned to normal as well. He may resume normal activity without restrictions and should follow up as needed. Coding Level of Care Code Global (40571) Diagnoses Acute and chronic cholecystitis K81.2 S/P cholecystectomy Z90.49
[2025-01-02 09:07] VITALS: BP 125/75; PULSE 41; BMI 29.3
== END 2025-01-02 09:30 | disposition home or self-care (01) ==
LOC: HO.HGS 08:54
PROVIDERS: PCP Internal Medicine; Visit Provider Surgery
DX: K81.2 Acute cholecystitis with chronic cholecystitis (principal); Z90.49 Acquired absence of other specified parts of digestive tract
CPT/HCPCS: 99024

== ENCOUNTER → 2025-01-02 08:54 | Outpatient (BNVA) | payer MEDICARE, OTHER, SELFPAY | PROVIDERS: PCP Internal Medicine; Visit Provider Surgery | DX: Z09 Encounter for follow-up examination after completed treatment for conditions other than malignant neoplasm (principal); Z87.19 Personal history of other diseases of the digestive system; Z90.49 Acquired absence of other specified parts of digestive tract | CPT/HCPCS: 99212 ==